=== PATIENT | female | born 1970 | race Caucasian/White ===

== ENCOUNTER 2018-08-08 11:45 | Inpatient (IN) ==
[2018-08-08] MEDS ORDERED: Levofloxacin 500 MG/100 ML 500 MG/100 ML BAG IVPB ONE (15:06)
[2018-08-08] MEDS ORDERED: *HR* FentaNYL (PF) 100 MCG/2 ML VIAL IVP ONE (15:06)
--- NOTE | 2018-08-08 15:07 | Emergency Department Note ---
Disposition Clinical Impression: Diabetic foot ulcer Disposition: Admitted As Inpatient Condition: Good General Adult HPI - General Chief complaint: ED Extremity Problem,Nontraumatic Stated complaint: Right foot ulcer wound clinic Time Seen by Provider: 08/08/18 13:04 Source: patient Limitations: no limitations - History of Present Illness Pain Scale: 10 - Related Data Home Medications Medication Instructions Recorded Confirmed Atorvastatin [Lipitor] 40 mg PO HS 08/08/18 08/08/18 Duloxetine HCl [Cymbalta] 60 mg PO DAILY 08/08/18 08/08/18 Insulin ASPART [Novolog Flexpen] 0 unit SQ TIDAC 08/08/18 08/08/18 Losartan Potassium [Cozaar] 50 mg PO DAILY 08/08/18 08/08/18 Ondansetron HCl [Zofran] 4 mg PO Q6H PRN 08/08/18 08/08/18 RX: Temazepam [Restoril] 15 mg PO HS PRN 08/08/18 08/08/18 Allergies Allergy/AdvReac Type Severity Reaction Status Date / Time Penicillins Allergy Hives Verified 08/08/18 12:40 Past Medical History - Past Medical History Medical history: Reports: diabetes, hypertension Surgical history: Reports: , cholecystectomy Psychiatric history: Reports: depression - Social History Smoking Status: Never smoker Smokeless Tobacco Status: No Alcohol use: Reports: none Drug use: Reports: none Physical Exam - General Limitations: no limitations General appearance: alert, in no apparent distress Course Vital Signs Temperature 98.3 F 08/08/18 12:37 Pulse Rate 88 08/08/18 12:37 Respiratory Rate 16 08/08/18 12:37 Blood Pressure 144/78 08/08/18 12:37 O2 Sat by Pulse Oximetry 97 08/08/18 12:37 Temperature 98.6 F 08/08/18 17:42 Pulse Rate 95 08/08/18 17:42 Respiratory Rate 18 08/08/18 17:42 Blood Pressure 139/81 08/08/18 17:42 O2 Sat by Pulse Oximetry 97 08/08/18 17:42 Oxygen Delivery Oxygen Delivery Room Air Medical Decision Making - Lab Data Result diagrams: 08/08/18 13:04 08/08/18 13:04 Lab Results 08/08/18 08/08/18 08/08/18 Range/Units 13:04 13:04 13:04 WBC 8.7 (4.3-11.1) K/mcL RBC 3.90 (3.82-4.97) M/mcL Hgb 10.8 L (11.5-15.4) g/dL Hct 34.7 L (35.3-44.9) % MCV 89.0 (83.0-100.0) fL MCH 27.7 L (28.0-33.3) pg MCHC 31.1 L (31.6-35.5) g/dL RDW 13.9 (11.5-14.5) % Plt Count 382 (140-400) K/mcL MPV 9.4 (9.4-12.4) fL Immature Gran % 0.6 (0-4) % Seg Neutrophils % 68.8 % Lymphocytes % 22.7 % Monocytes % 6.4 % Eosinophils % 0.9 % Basophils % 0.6 % Neutrophils # 6.0 (1.6-8.9) K/mcL Lymphocytes # 2.0 (0.6-4.6) K/mcL Monocytes # 0.6 (0.0-1.3) K/mcL Eosinophils # 0.1 (0.0-0.6) K/mcL Basophils # 0.1 (0.0-0.2) K/mcL ESR 100 H (0-15) mm/hr Sodium 134 L (136-145) mEq/L Potassium 3.8 (3.5-5.1) mEq/L Chloride 95 L (98-107) mEq/L Carbon Dioxide 31 H (23-29) mEq/L BUN 8 (6-20) mg/dL Creatinine 0.77 (0.60-1.20) mg/dL Est GFR ( Amer) > 60 (> 60) Est GFR (Non-Af Amer) > 60 (> 60) BUN/Creatinine Ratio 10 (6-26) Glucose 291 H (70-105) mg/dL Calculated Osmolality 287 (280-300) Calcium 8.8 (8.6-10.3) mg/dL C-Reactive Protein 40 H (Less than 10) mg/L Attestation Statement - Attestation Attestation: I examined this patient and my medical decision-making was reviewed with the Resident Physician. I agree with the documented findings, disposition and treatment plan as described except to the extent set forth below. [id number] time provided Patient with pain and swelling to her right lower extremity. She has had a slowly healing diabetic foot ulcer since November 2017 managed by William. She was sent from the wound care clinic today for admission. The patient is tearful on exam. The plantar and lateral surface of her right foot is swollen, tender, erythematous with an open wound.
[2018-08-08] MEDS ORDERED: Ondansetron ODT 4 MG TAB.RAPDIS SL ONE (15:19)
[2018-08-08 15:29] LABS: Hematocrit 34.7 % (35.3-44.9); Hemoglobin 10.8 g/dL (11.5-15.4)
[2018-08-08 15:30] LABS: BUN/Creatinine Ratio 10 (6-26); Basophils # 0.1 K/mcL (0.0-0.2); Basophils % 0.6 %; Blood Urea Nitrogen 8 mg/dL (6-20); C-Reactive Protein 40 mg/L (Less than 10); Calcium 8.8 mg/dL (8.6-10.3); Carbon Dioxide 31 mEq/L (23-29); Chloride 95 mEq/L (98-107); Eosinophils # 0.1 K/mcL (0.0-0.6); Eosinophils % 0.9 %; Glucose 291 mg/dL (70-105); Immature Granulocytes % 0.6 % (0-4); Lymphocytes % 22.7 %; Mean Corpuscular HGB Conc 31.1 g/dL (31.6-35.5); Mean Corpuscular Hemoglobin 27.7 pg (28.0-33.3); Mean Platelet Volume 9.4 fL (9.4-12.4); Monocytes # 0.6 K/mcL (0.0-1.3); Monocytes % 6.4 %; Osmolality,Calculated 287 (280-300); Platelet Count 382 K/mcL (140-400); Potassium 3.8 mEq/L (3.5-5.1); Red Cell Distribution Width 13.9 % (11.5-14.5); Segmented Neutrophils % 68.8 %; Sodium 134 mEq/L (136-145); eGFR For Non-African Americans > 60 (> 60)
--- NOTE | 2018-08-08 15:40 | Emergency Department Note ---
Disposition Clinical Impression: Diabetic foot ulcer Qualifiers: Diabetic foot ulcer location: midfoot Diabetes mellitus type: other specified (including FRANCK) Laterality: right Non-pressure ulcer stage: unspecified non- pressure ulcer stage Qualified Code(s): E13.621 - Other specified diabetes mellitus with foot ulcer Disposition: Admitted As Inpatient Condition: Good Referrals: Juliane Sultana MD [Primary Care Provider] - Time of Disposition: 15:52 General Adult HPI - General Chief complaint: ED Extremity Problem,Nontraumatic Stated complaint: Right foot ulcer wound clinic Time Seen by Provider: 08/08/18 13:04 Source: patient Mode of arrival: private vehicle Limitations: no limitations Nursing Notes Reviewed: Yes Vital Signs Reviewed: Yes - History of Present Illness HPI Narrative: Patient is a 47-year-old female with a history of diabetes Pain Scale: 10 - Related Data Home Medications Medication Instructions Recorded Confirmed Atorvastatin [Lipitor] 40 mg PO HS 08/08/18 08/08/18 Duloxetine HCl [Cymbalta] 60 mg PO DAILY 08/08/18 08/08/18 Insulin ASPART [Novolog Flexpen] 0 unit SQ TIDAC 08/08/18 08/08/18 Losartan Potassium [Cozaar] 50 mg PO DAILY 08/08/18 08/08/18 Ondansetron HCl [Zofran] 4 mg PO Q6H PRN 08/08/18 08/08/18 Temazepam [Restoril] 15 mg PO HS PRN 08/08/18 08/08/18 Allergies Allergy/AdvReac Type Severity Reaction Status Date / Time Penicillins Allergy Hives Verified 08/08/18 12:40 Constitutional: Reports: fever, chills Eyes: Denies: eye pain ENT ED: Denies: ear pain, throat pain Cardiovascular: Reports: chest pain Respiratory: Reports: dyspnea Gastrointestinal: Reports: abdominal pain, nausea, vomiting, diarrhea. Denies: constipation Genitourinary: Denies: urgency, dysuria Musculoskeletal: Denies: back pain, neck pain Neurological: Reports: headache, weakness Psychiatric: Reports: anxiety Endocrine: Denies: fatigue, heat or cold intolerance Hematological/Lymphatic: Denies: easy bleeding, easy bruising Allergic/Immunologic: Denies: facial swelling, urticaria Past Medical History - Past Medical History Medical history: Reports: diabetes, hypertension Surgical history: Reports: , cholecystectomy Psychiatric history: Reports: depression - Social History Smoking Status: Never smoker Smokeless Tobacco Status: No Alcohol use: Reports: none Drug use: Reports: none Physical Exam - General Limitations: no limitations General appearance: alert, in no apparent distress - Head Head exam: atraumatic, normocephalic - Eye Eye exam: Present: normal appearance, PERRL, EOMI - ENT ENT exam: normal exam, normal oropharynx, mucous membranes moist - Neck Neck exam: Present: normal inspection, full ROM - Chest Chest inspection: Present: normal inspection, symmetric chest wall rise, tenderness - Respiratory Respiratory exam: Present: normal lung sounds bilaterally. Absent: respiratory distress, wheezes - Cardiovascular Cardiovascular exam: Present: regular rate, normal rhythm - Abdominal Exam Abdominal exam: Present: soft, tenderness Abdominal tenderness: Present: diffuse, mild - Expanded Lower Extremity Exam Foot/toe exam: Present: other (R foot is swollen, has 3cm ulcer on foot that is packed with iodoform gauze) - Back Exam Back exam: Present: normal inspection, full ROM - Neurological Exam Neurological exam: Present: alert, oriented X3 - Psychiatric Psychiatric exam: Present: normal affect, anxious - Skin Skin exam: Present: warm, dry Course Course Narrative: Pt was sent over by Dr. Cook for admission for IV antibiotics and evaluation. Pt's pain and nausea will be controlled and basic screening labs to include CBC, BMP, ESR, CRP will be ordered. foot XR was already completed today which did not demonstrate any osteomyelitis. Vital Signs Temperature 98.3 F 08/08/18 12:37 Pulse Rate 88 08/08/18 12:37 Respiratory Rate 16 08/08/18 12:37 Blood Pressure 144/78 08/08/18 12:37 O2 Sat by Pulse Oximetry 97 08/08/18 12:37 Temperature 99.1 F 08/08/18 16:45 Pulse Rate 88 08/08/18 14:52 Respiratory Rate 20 08/08/18 16:45 Blood Pressure 136/91 08/08/18 16:45 O2 Sat by Pulse Oximetry 97 08/08/18 14:52 Oxygen Delivery Oxygen Delivery Room Air Medical Decision Making - MDM Narrative Medical decision making narrative: Pt was recently admitted to [facility] for a diabetic foot ulcer and was on IV antibiotics, but she was unhappy that her clinicians at that hospital did not understand her underlying conditions and so requested to be discharged. She was discharged on Sunday night, but was seen today at her podiatrists office and he feels that she would benefit from a longer inpatient stay for more IV antibiotics and further evaluation of her foot. She was also complaining of some chest pain, but her EKG was normal and her chest pain resolved during the course of her ED stay. She remained stable while in the department. Dr. Sheriff, hospitalist, agreed to admit to his service. Podiatry was consulted. She was started on Vancomycin and Levofloxacin while in the department. - Medical Records Medical records reviewed: Yes I reviewed the patient's medical records. - Lab Data Lab results reviewed: Yes I reviewed the patient's lab results. Result diagrams: 08/08/18 13:04 08/08/18 13:04 Lab Results 08/08/18 08/08/18 08/08/18 Range/Units 13:04 13:04 13:04 WBC 8.7 (4.3-11.1) K/mcL RBC 3.90 (3.82-4.97) M/mcL Hgb 10.8 L (11.5-15.4) g/dL Hct 34.7 L (35.3-44.9) % MCV 89.0 (83.0-100.0) fL MCH 27.7 L (28.0-33.3) pg MCHC 31.1 L (31.6-35.5) g/dL RDW 13.9 (11.5-14.5) % Plt Count 382 (140-400) K/mcL MPV 9.4 (9.4-12.4) fL Immature Gran % 0.6 (0-4) % Seg Neutrophils % 68.8 % Lymphocytes % 22.7 % Monocytes % 6.4 % Eosinophils % 0.9 % Basophils % 0.6 % Neutrophils # 6.0 (1.6-8.9) K/mcL Lymphocytes # 2.0 (0.6-4.6) K/mcL Monocytes # 0.6 (0.0-1.3) K/mcL Eosinophils # 0.1 (0.0-0.6) K/mcL Basophils # 0.1 (0.0-0.2) K/mcL ESR 100 H (0-15) mm/hr Sodium 134 L (136-145) mEq/L Potassium 3.8 (3.5-5.1) mEq/L Chloride 95 L (98-107) mEq/L Carbon Dioxide 31 H (23-29) mEq/L BUN 8 (6-20) mg/dL Creatinine 0.77 (0.60-1.20) mg/dL Est GFR ( Amer) > 60 (> 60) Est GFR (Non-Af Amer) > 60 (> 60) BUN/Creatinine Ratio 10 (6-26) Glucose 291 H (70-105) mg/dL Calculated Osmolality 287 (280-300) Calcium 8.8 (8.6-10.3) mg/dL C-Reactive Protein 40 H (Less than 10) mg/L - Radiology Data Radiology results reviewed: Yes I reviewed the patient's radiology results. Foot X-Ray 08/08/18 13:04 IMPRESSION: 1. Dislocation of the midfoot, stable. 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 2. Ulcer along the plantar aspect of the right foot near the midfoot. No evidence of osteomyelitis. D/ / 08/08/2018 13:51:30 Jules Billings MD / gilmer Interpreting Provider: Jules Billings MD - EKG Data EKG #1 EKG attestation: Yes I reviewed and interpreted this EKG. EKG results narrative: HR 85, rhythm sinus, axis normal. IN 162, QRS 97, QTc 488. No ST elevation or depression. No evidence of LVH.
[2018-08-08] MEDS ORDERED: Naloxone 0.4 MG/ML INJ IVP PRN (16:28)
[2018-08-08] MEDS ORDERED: D5% in Water 1,000 ML IVC PRN (16:31)
[2018-08-08] MEDS ORDERED: *HR* Dextrose 50 % in Water (Syg) 50 ML SYRINGE IVP PRN (16:31)
[2018-08-08] MEDS ORDERED: Dextrose Gel 15 GM/37.5 ML TUBE PO PRN ×2 (16:31)
[2018-08-08] MEDS ORDERED: Acetaminophen 325 MG TABLET PO PRN (16:32)
--- NOTE | 2018-08-08 16:42 | Internal Med History&Physical ---
Date of Encounter: 08/08/18 Time of Encounter: 16:00 Internal Medicine - H&P: HPI Chief complaint: infected R foot ulcer Admitted From: Home History of present illness: Ms. Galindo is a 47 year old female with history of DM complicated by Charcot a rthropathy, morbid obesity, who presented to the ED from podiatry office due to the concern of infected R foot ulcer. Patient has had prolonged course of infected R foot ulcer since 11/2018. Most recently, she was admitted at [facility] 3 weeks ago and was discharged home yesterday with home IV abx. She was then seen by her usual small boat engineer today, Dr. Garner, and was recommended to come to the hospital for admission. States that she has pain and swelling of the right foot associated with yellowish discharge. Denies any fever/chills, nausea/vomiting, chest pain, cough, sputum production, abdominal pain, change in bowel habits, or dysuria. In the ED, she was afebrile and hemodynamically stable. Labwork showed elevated ESR/CRP of 100/40 respectively. No leukocytosis. Creatinine her baseline. X-ray of the right foot demonstrated findings compatible with Charcot arthropathy as well as ulcer along the plantar aspect of the right foot. Patient was started on Vanco/Levaquin and admitted for further management with podiatry consult. Past Med Surg Social Fam HX - Past Medical History Attestation: Yes The following information was validated with the patient. Medical history: diabetes, hypertension Additional medical history: Multiple groin abscesses. Psychiatric history: depression - Past Surgical History Surgical History: , cholecystectomy Additional surgical history: Right foot drop, Charcot foot righ. - Social History Smoking Status: Never smoker Smokeless Tobacco Status: No Alcohol use: none Drug use: none - Family History Mother Adopted: No Family Member Ethnicity: Non- Living Status: Still Living Hx Family Cardiac Disorders: No Hx Family Respiratory Disorders: No Hx Family Cancer: Yes Hx Family GI Disorders: No Hx Family Endocrine Disorder: Yes Hx Family Neuromuscular Disorders: No Hx Family Neurologic Disorders: No Hx Family HEENT Disorders: No Hx Family Autoimmune Disorders: No Father Adopted: No Family Member Ethnicity: Non- Living Status: Still Living Hx Family Cardiac Disorders: Yes (A-fib.) Hx Family Respiratory Disorders: No Hx Family Cancer: Yes (Esophageal) Hx Family GI Disorders: No Hx Family Endocrine Disorder: No Hx Family Neuromuscular Disorders: No Hx Family Neurologic Disorders: No Hx Family HEENT Disorders: No Hx Family Autoimmune Disorders: No Internal Medicine - H&P: Meds Atorvastatin [Lipitor] 40 mg PO HS 08/08/18 [History] Duloxetine HCl [Cymbalta] 60 mg PO DAILY 08/08/18 [History] Insulin ASPART [Novolog Flexpen] 0 unit SQ TIDAC 08/08/18 [History] Losartan Potassium [Cozaar] 50 mg PO DAILY 08/08/18 [History] Ondansetron HCl [Zofran] 4 mg PO Q6H PRN 08/08/18 [History] Temazepam [Restoril] 15 mg PO HS PRN 08/08/18 [History] Allergy/AdvReac Type Severity Reaction Status Date / Time Penicillins Allergy Hives Verified 08/08/18 12:40 All Systems PM: A 10-system review of systems was performed and is negative for pertinent findings except as documented above in the HPI. - Constitutional Vitals: Temp Pulse Resp BP Pulse Ox 98.3 F 88 16 144/78 97 08/08/18 14:52 08/08/18 14:52 08/08/18 14:52 08/08/18 14:52 08/08/18 14:52 Exam: General: Alert and oriented, not in acute distress. Anxious appearing HEENT:EOMI, pupils equal, round and reactive. Cardiovascular:Normal S1 & S2, No JVD. Pulse regular. Lungs: clear to auscultation, no wheezes/rales Abdomen:Soft, non-tender, no rigidity. Extremities: R foot swollen and erythematous on the plantar aspect, small area of ulcer noted at the lateral R midfoot. Tender on light touch Neurological:Normal cognition and motor skills. Non-focal Skin:Normal color, no rash. Pulses:Carotid and radial pulses normal +2. Rest of the physical exam is non contributory Internal Med - H&P Results - Labs CBC & Chem 7: 08/08/18 13:04 08/08/18 13:04 Labs: Short CBC 08/08/18 Range/Units 13:04 WBC 8.7 (4.3-11.1) K/mcL Hgb 10.8 L (11.5-15.4) g/dL Hct 34.7 L (35.3-44.9) % Plt Count 382 (140-400) K/mcL Neutrophils # 6.0 (1.6-8.9) K/mcL BMP 08/08/18 13:04 Sodium 134 L Potassium 3.8 Chloride 95 L Carbon Dioxide 31 H BUN 8 Creatinine 0.77 Glucose 291 H Calcium 8.8 - Impressions ITS Impressions Foot X-Ray 08/08/18 13:04 IMPRESSION: 1. Dislocation of the midfoot, stable. 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 2. Ulcer along the plantar aspect of the right foot near the midfoot. No evidence of osteomyelitis. D/ / 08/08/2018 13:51:30 Jules Billings MD / glimer Interpreting Provider: Jules Billings MD - Assessment and Plan (1) Diabetic foot ulcer Current Visit: Yes Status: Acute Assessment and plan: Patient has had multiple bouts of infected right mid foot ulcer since 11/2018, with the latest admission to [facility] 3 weeks ago was just discharged yesterday on home IV abx but readmitted after being evaluated by her usual small boat engineer today in the office ESR/CRP elevated, XR -ve for OM pt states that she has had MRI done at [place] that was negative for OM, will obtain records started on vanc/levaquin in the ED, continue podiatry consult Qualifiers: Diabetic foot ulcer location: midfoot Diabetes mellitus type: type 2 Laterality: right Non-pressure ulcer stage: unspecified non-pressure ulcer stage Qualified Code(s): E11.621 - Type 2 diabetes mellitus with foot ulcer; L97.419 - Non-pressure chronic ulcer of right heel and midfoot with unspecified severity (2) Diabetes Current Visit: Yes Status: Chronic Assessment and plan: States that she used to be on 70/30 insulin 100U BID which was just switched to novolog only will cover with moderate dose sliding scale check A1c ADA diet Qualifiers: Diabetes mellitus type: type 2 Diabetes mellitus skilled nursing insulin use: with exterminator use Diabetes mellitus complication status: with other specified complication Qualified Code(s): E11.69 - Type 2 diabetes mellitus with other specified complication; Z79.4 - assistant terminal manager (current) use of insulin (3) HTN (hypertension) Current Visit: No Status: Chronic Assessment and plan: resume home meds Qualifiers: Hypertension type: essential hypertension Qualified Code(s): I10 - Essential (primary) hypertension (4) Morbid obesity with BMI of 50.0-59.9, adult Current Visit: Yes Status: Chronic Assessment and plan: Lifestyle modifications emphasized (5) DVT prophylaxis Current Visit: Yes Status: Acute Assessment and plan: SQ heparin - Time Spent With Patient Total time spent is greater than 50% in coordination of care (as documented) at patient's floor/unit and/or counseling patient: 25 - 35 minutes
[2018-08-08] MEDS: *HR* OxyCODONE Immed Rel 5 MG TABLET PO PRN (18:05)
[2018-08-08] MEDS: traMADol 50 MG TABLET PO PRN (20:00)
[2018-08-08] MEDS: Insulin LISPRO 300 UNITS/3 ML VIAL SQ SCH (20:18)
[2018-08-08] MEDS: Temazepam 15 MG CAPSULE PO PRN (22:06)
[2018-08-08] MEDS: *HR* Heparin 5,000 UNIT/ML VIAL SQ SCH (22:06)
[2018-08-08] MEDS ORDERED: *HR* HYDROmorphone (PF) 1 MG/ML SYRINGE IVP ONE (23:06)
[2018-08-08] MEDS: Ondansetron 4 MG/2 ML VIAL IVP PRN (23:17)
[2018-08-09] MEDS: *HR* OxyCODONE Immed Rel 5 MG TABLET PO PRN ×3 (04:01→21:27)
[2018-08-09 04:26] LABS: Mean Corpuscular HGB Conc 31.4 g/dL (31.6-35.5); Mean Corpuscular Hemoglobin 27.7 pg (28.0-33.3); Mean Corpuscular Volume 88.4 fL (83.0-100.0); Mean Platelet Volume 9.3 fL (9.4-12.4); Platelet Count 312 K/mcL (140-400); Red Blood Count 3.28 M/mcL (3.82-4.97); Red Cell Distribution Width 14.1 % (11.5-14.5)
[2018-08-09 04:32] LABS: Hemoglobin 9.1 g/dL (11.5-15.4)
[2018-08-09 04:36] LABS: INR 1.3; Prothrombin Time 14.4 Seconds (9.4-12.1)
[2018-08-09 04:48] LABS: BUN/Creatinine Ratio 9 (6-26); Blood Urea Nitrogen 7 mg/dL (6-20); Carbon Dioxide 31 mEq/L (23-29); Chloride 97 mEq/L (98-107); Glucose 244 mg/dL (70-105); Magnesium 1.6 mg/dL (1.6-2.6); Osmolality,Calculated 286 (280-300); Potassium 3.6 mEq/L (3.5-5.1); Sodium 135 mEq/L (136-145); eGFR For Non-African Americans > 60 (> 60)
[2018-08-09] MEDS: *HR* Heparin 5,000 UNIT/ML VIAL SQ SCH ×3 (05:30→20:50)
[2018-08-09] MEDS: Levofloxacin 750 MG/150 ML 750 MG/150 ML BAG IVPB SCH (07:57)
[2018-08-09] MEDS: Insulin LISPRO 300 UNITS/3 ML VIAL SQ SCH ×4 (08:02→20:49)
[2018-08-09] MEDS: Ondansetron 4 MG/2 ML VIAL IVP PRN ×2 (08:10→17:57)
[2018-08-09 09:58] LABS: Estimated Average Glucose 289 mg/dl; Hemoglobin A1C 11.7 %
--- NOTE | 2018-08-09 12:17 | Internal Med Progress Note ---
Hospitalist Progress Note - Encounter Date of Encounter: 08/09/18 Time of Encounter: 10:30 - Subjective Interval History: No acute events overnight. Denies any fever/chills, worsening right foot pain, chest pain, shortness of breath, or cough. - Exam Vitals: Temp Pulse Resp BP Pulse Ox 98.7 F 75 15 125/74 97 08/09/18 11:19 08/09/18 11:19 08/09/18 11:19 08/09/18 11:19 08/09/18 11:19 Exam: General: Alert and oriented, not in acute distress. Anxious appearing Cardiovascular:Normal S1 & S2, No JVD. Pulse regular. Lungs: clear to auscultation, no wheezes/rales Abdomen:Soft, non-tender, no rigidity. Extremities: R foot dressing c/d/i Neurological:Normal cognition and motor skills. Non-focal - Assessment and Plan (1) Diabetic foot ulcer Current Visit: Yes Status: Acute Assessment and Plan: Patient has had multiple bouts of infected right mid foot ulcer since 11/2018, with the latest admission to [facility] 3 weeks ago was just discharged on 08/07 with home IV abx but readmitted after being evaluated by her electromedical service engineer on 08/08 in the office ESR/CRP elevated, XR -ve for OM pt states that she has had MRI done at [place] that was negative for OM, will obtain records Continue D2 vanc/levaquin while waiting for OSH records discussed with podiatry, will hold off on imaging for now until evaluated later. No immediate plan on intervention. (2) Diabetes Current Visit: Yes Status: Chronic Assessment and Plan: States that she used to be on 70/30 insulin 100U BID which was just switched to novolog only Poorly controlled, A1c 11.7 cover with moderate dose sliding scale and add basal insulin ADA diet (3) HTN (hypertension) Current Visit: No Status: Chronic Assessment and Plan: resume home meds (4) Morbid obesity with BMI of 50.0-59.9, adult Current Visit: Yes Status: Chronic Assessment and Plan: Lifestyle modifications emphasized (5) DVT prophylaxis Current Visit: Yes Status: Acute Assessment and Plan: SQ heparin - Time Spent with Patient Total time spent is greater than 50% in coordination of care (as documented) at patient's floor/unit and/or counseling patient: 25 - 35 minutes Plan of Care Discussed with: patient (discussed with podiatry as well) Internal Medicine: Result - Labs CBC & Chem 7: 08/09/18 04:10 08/09/18 04:10 Labs: Short CBC 08/08/18 08/09/18 Range/Units 13:04 04:10 WBC 8.7 7.0 (4.3-11.1) K/mcL Hgb 10.8 L 9.1 L D (11.5-15.4) g/dL Hct 34.7 L 29.0 L (35.3-44.9) % Plt Count 382 312 (140-400) K/mcL Neutrophils # 6.0 (1.6-8.9) K/mcL BMP 08/08/18 08/09/18 13:04 04:10 Sodium 134 L 135 L Potassium 3.8 3.6 Chloride 95 L 97 L Carbon Dioxide 31 H 31 H BUN 8 7 Creatinine 0.77 0.80 Glucose 291 H 244 H Calcium 8.8 8.0 L - ABG Interpretation ABG results: PT/INR, D-dimer PT 14.4 Seconds (9.4-12.1) H 08/09/18 04:10 - Impressions Impressions Foot X-Ray 08/08/18 13:04 IMPRESSION: 1. Dislocation of the midfoot, stable. 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 2. Ulcer along the plantar aspect of the right foot near the midfoot. No evidence of osteomyelitis. D/ / 08/08/2018 13:51:30 Jules Billings MD / gilmer Interpreting Provider: Jules Billings MD Consult Discharge Plan - Plan Referrals: Juliane Sultana MD [Primary Care Provider] - (1) Diabetic foot ulcer Qualifiers: Diabetic foot ulcer location: midfoot Diabetes mellitus type: type 2 Laterality: right Non-pressure ulcer stage: unspecified non-pressure ulcer stage Qualified Code(s): E11.621 - Type 2 diabetes mellitus with foot ulcer; L97.419 - Non-pressure chronic ulcer of right heel and midfoot with unspecified severity (2) Diabetes Qualifiers: Diabetes mellitus type: type 2 Diabetes mellitus exterminator termite insulin use: with retirement use Diabetes mellitus complication status: with other specified complication Qualified Code(s): E11.69 - Type 2 diabetes mellitus with other specified complication; Z79.4 - nursing home (current) use of insulin (3) HTN (hypertension) Qualifiers: Hypertension type: essential hypertension Qualified Code(s): I10 - Essential (primary) hypertension
[2018-08-09] MEDS: *HR* Promethazine 25 MG/ML VIAL IVP PRN (12:39)
[2018-08-09] MEDS ORDERED: Gadolinium Contrast Agent (WT Based) IV PRN (12:47)
--- NOTE | 2018-08-09 13:10 | Podiatry Consult Note ---
Date of Encounter: 08/09/18 Time of Encounter: 12:30 Assessment and Plan (1) Diabetic foot ulcer Current visit: Yes Status: Acute Assessment: Charcot foot with ulceration Ulceration noted to plantar aspect of right foot measuring 1 x 1 x 3.5 cm with tunneling noted 2.2 cm at 4 o'clock Purulent drainage noted, no foul odor noted Erythema noted, no streaking noted, does not extend past demarcation line, receding from line 3/4 edema noted. Xray showed no signs of OM WBC 7.0, ESR 100, CRP 40, HGB A1C 11.7 Plan: Cleansed with 0.9 NS Packed with 1/4 inch gauze Covered with 4x4 dry gauze and kerlex MR ordered of right foot to assess for abscess/OM NWB RLE Wound cultures and anaerobic cultures ordered. Nursing to collect. Local wound care orders placed. Nursing to change daily. Recommend psychiatric evaluation d/t stress and very tearful Recommend tight glycemic control to promote wound healing Recommend to consider increasing time interval for pain medication and nausea medication to help with symptoms Thank you for consultation- will continue to follow Qualifiers: Diabetic foot ulcer location: midfoot Diabetes mellitus type: type 2 Laterality: right Non-pressure ulcer stage: unspecified non-pressure ulcer stage Qualified Code(s): E11.621 - Type 2 diabetes mellitus with foot ulcer; L97.419 - Non-pressure chronic ulcer of right heel and midfoot with unspecified severity History of Present Illness HPI: Ms. Galindo is a 47 year old female who presented to the ER last evening for complaints of worsening pain to right foot. Patient is known to podiatry clinic and follows with Dr. 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 Patient has PMH of DM, HTN, charcot arthropathy of right foot, and morbid obesity. Denies tobacco abuse, etoh abuse, or illicit drug use. Patient reports she was previously admitted to [facility] 3 weeks ago for cellulitis. Patient reports that during that time she was given IV antibiotics and was told to ambulate despite charcot foot. Patient reports she left [facility] days ago and went home. States at home she began to have pain that felt in her bone, rating 10/10. States this pain was new. Patient reports she went to wound care yesterday at which time wound was debrided and she was informed to go to ER for evaluation to be admitted. Patient is very tearful during examination stating she has children that she is having stay with her mother while she is in the hospital. Unfortunately, patient's is also admitted to the hospital in [place], at [facility] for chest pain. Patient states she is trying to stay in good spirits but is very stressed out and conc erned that she may lose her foot/leg. Again, Ms. Galindo is a 47 year old female with ulceration of right foot d/t charcot arthropathy. Patient has had ongoing wound care since November of 2017. Patient has demarcation line noted from 08/08 that erythema has since decreased. Xray completed upon admission did not show signs of OM. WBC 7.0, ESR 100, CRP 40, HGB A1C 11.7. Patient reports pain currently 7-810. Reports nausea occasionally. Denies any fevers, chills, or diarrhea. Denies any calf pain, yareli st pain, or shortness of breath. Past Med Surg Social Fam HX - Past Medical History Medical history: diabetes, hypertension Additional medical history: Multiple groin abscesses. Psychiatric history: depression - Past Surgical History Surgical History: , cholecystectomy Additional surgical history: Right foot drop, Charcot foot righ. - Social History Smoking Status: Never smoker Smokeless Tobacco Status: No Alcohol use: none Drug use: none - Family History Father Adopted: No Family Member Ethnicity: Non- Living Status: Still Living Hx Family Cardiac Disorders: Yes (HTN) Hx Family Respiratory Disorders: No Hx Family Cancer: Yes (Esophageal) Hx Family GI Disorders: No Hx Family Endocrine Disorder: Yes (DM) Hx Family Neuromuscular Disorders: No Hx Family Neurologic Disorders: No Hx Family HEENT Disorders: No Hx Family Autoimmune Disorders: No Mother Adopted: No Family Member Ethnicity: Non- Living Status: Still Living Hx Family Cardiac Disorders: No Hx Family Respiratory Disorders: No Hx Family Cancer: Yes Hx Family GI Disorders: No Hx Family Endocrine Disorder: Yes Hx Family Neuromuscular Disorders: No Hx Family Neurologic Disorders: No Hx Family HEENT Disorders: No Hx Family Autoimmune Disorders: No Medications and Allergies Atorvastatin [Lipitor] 40 mg PO HS 08/08/18 [History] Duloxetine HCl [Cymbalta] 60 mg PO DAILY 08/08/18 [History] Insulin ASPART [Novolog Flexpen] 0 unit SQ TIDAC 08/08/18 [History] Losartan Potassium [Cozaar] 50 mg PO DAILY 08/08/18 [History] Ondansetron HCl [Zofran] 4 mg PO Q6H PRN 08/08/18 [History] RX: Temazepam [Restoril] 15 mg PO HS PRN 08/08/18 [History] Allergy/AdvReac Type Severity Reaction Status Date / Time Penicillins Allergy Hives Verified 08/08/18 12:40 All Systems Reviewed: The remainder of the systems were reviewed and are negative - Constitutional Constitutional: weakness, no fever(s) - Cardiovascular Cardiovascular: leg edema, pedal edema, other (ulcer right foot), no chest pain - Respiratory Respiratory: no cough, no dyspnea - Musculoskeletal Musculoskeletal: arthralgias, muscle weakness, numbness, tingling Physical Exam - Constitutional Vitals: Temp Pulse Resp BP Pulse Ox 98.7 F 75 15 125/74 97 08/09/18 11:19 08/09/18 11:19 08/09/18 11:19 08/09/18 11:19 08/09/18 11:19 Exam: Constitiutional: Alert and oriented x 3. Well nourished. No acute distress noted Vascular: 2/4 DP/PT RLE, CFT <3 sec to all digits RLE, warm to warm from tibia to toes RLE, no calf pain with squeeze RLE Neurologic: Diminished sensation to touch, normal plantar response, abnormal position sense dorsiflexion/plantar flexion Dermatologic: Ulceration noted to plantar aspect of right foot measuring 1 x 1 x 3.5 cm with tunneling noted 2.2 cm at 4 o'clock, erythema noted to plantar aspect of foot, no streaking noted. Purulent drainage noted. No foul odor noted. Musculoskeletal: 3/5 muscle strength and normal tone bilaterally Results - Labs Result Diagrams: 08/09/18 04:10 08/09/18 04:10 Labs: Abnormal lab results RBC 3.28 M/mcL (3.82-4.97) L 08/09/18 04:10 Hgb 9.1 g/dL (11.5-15.4) L D 08/09/18 04:10 Hct 29.0 % (35.3-44.9) L 08/09/18 04:10 MCH 27.7 pg (28.0-33.3) L 08/09/18 04:10 MCHC 31.4 g/dL (31.6-35.5) L 08/09/18 04:10 MPV 9.3 fL (9.4-12.4) L 08/09/18 04:10 ESR 100 mm/hr (0-15) H 08/08/18 13:04 PT 14.4 Seconds (9.4-12.1) H 08/09/18 04:10 Sodium 135 mEq/L (136-145) L 08/09/18 04:10 Chloride 97 mEq/L (98-107) L 08/09/18 04:10 Carbon Dioxide 31 mEq/L (23-29) H 08/09/18 04:10 Glucose 244 mg/dL (70-105) H 08/09/18 04:10 POC Glucose 178 mg/dL (70-99) H 08/09/18 11:24 Hemoglobin A1c 11.7 % (-5.6) H 08/09/18 04:10 Calcium 8.0 mg/dL (8.6-10.3) L 08/09/18 04:10 C-Reactive Protein 40 mg/L (Less than 10) H 08/08/18 13:04 H & H 08/08/18 08/09/18 Range/Units 13:04 04:10 Hgb 10.8 L 9.1 L D (11.5-15.4) g/dL Hct 34.7 L 29.0 L (35.3-44.9) % All other labs normal. - Diagnostic results Ankle/Foot CT: report reviewed Consult Discharge Plan - Plan Referrals: Juliane Sultana MD [Primary Care Provider] -
[2018-08-09] MEDS: traMADol 50 MG TABLET PO PRN (16:37)
[2018-08-09] MEDS ORDERED: *HR* HYDROmorphone (PF) 1 MG/ML SYRINGE IVP ONE (17:42)
[2018-08-09] MEDS: Temazepam 15 MG CAPSULE PO PRN (20:48)
[2018-08-09] MEDS ORDERED: Insulin DETEMIR 100 UNIT/ML X5UNITS SQ SCH (21:00)
--- NOTE | 2018-08-10 03:23 | Electrocardiograph Report ---
[place] [id number] Test Date: 2018-08-08 Pat Name: Hafsa Galindo Department: [id number] Room: [facility] Gender: F Senior Internal Auditor: : 1970 Requested By: Winsome Reynaga Order Number: [id number] Reading MD: Christiano Shepard Measurements Intervals [place] Rate: 85 P: 17 [place]: 162 QRS: 39 QRSD: 97 T: 32 QT: 410 QTc: 488 Interpretive Statements Sinus rhythm Borderline prolonged QT interval Electronically Signed On 08-10-2018 3:21:41 EDT by Christiano Shepard
[2018-08-10] MEDS: *HR* OxyCODONE Immed Rel 5 MG TABLET PO PRN ×3 (04:17→21:48)
[2018-08-10] MEDS: *HR* Heparin 5,000 UNIT/ML VIAL SQ SCH ×3 (05:00→21:38)
[2018-08-10] MEDS: Insulin LISPRO 300 UNITS/3 ML VIAL SQ SCH ×4 (08:49→21:37)
--- NOTE | 2018-08-10 11:14 | Internal Med Progress Note ---
Hospitalist Progress Note - Encounter Date of Encounter: 08/10/18 Time of Encounter: 09:45 - Subjective Interval History: Did have severe pain after dressing change yesterday afternoon but reports improvement in her right foot pain today. No fever/chills or nausea/vomiting. - Exam Vitals: Temp Pulse Resp BP Pulse Ox 98.2 F 86 17 130/78 100 08/10/18 11:08 08/10/18 11:08 08/10/18 11:08 08/10/18 11:08 08/10/18 11:08 Exam: General: Alert and oriented, not in acute distress. Cardiovascular:Normal S1 & S2, No JVD. Pulse regular. Lungs: clear to auscultation, no wheezes/rales Abdomen:Soft, non-tender, no rigidity. Extremities: R foot dressing c/d/i Neurological:Normal cognition and motor skills. Non-focal - Assessment and Plan (1) Diabetic foot ulcer Current Visit: Yes Status: Acute Assessment and Plan: Patient has had multiple bouts of infected right mid foot ulcer since 11/2018, with the latest admission to [facility] 3 weeks ago was just discharged on 08/07 with home IV abx but readmitted after being evaluated by her aquaculture and fisheries professor on 08/08 in the office ESR/CRP elevated, XR -ve for OM pt states that she has had MRI done at [place] that was negative for OM, repeat one ordered by podiatry wound culture also sent, follow up Continue D3 vanc/levaquin NWB RLE Dressing change per Podiatry, appreciate input (2) Diabetes Current Visit: Yes Status: Chronic Assessment and Plan: States that she used to be on 70/30 insulin 100U BID which was just switched to novolog only Poorly controlled, A1c 11.7 continue moderate dose sliding scale, increase basal insulin to 25U HS ADA diet (3) Displacement of peripherally inserted central catheter (PICC) Current Visit: Yes Status: Acute Assessment and Plan: Patient had PICC inserted through L UE but wasn't drawing or flushing well CXR showed tip pointing toward the right neck. Difficulty in obtaining al ternative access due to her body habitus discussed with IR practice consultant, will try to pull the catheter out by ~ 5cm and repeat CXR. IT will eventually need to be repositioned or replaced once PICC team is available on Sunday (4) HTN (hypertension) Current Visit: No Status: Chronic Assessment and Plan: resume home meds (5) Morbid obesity with BMI of 50.0-59.9, adult Current Visit: Yes Status: Chronic Assessment and Plan: Lifestyle modifications emphasized (6) DVT prophylaxis Current Visit: Yes Status: Acute Assessment and Plan: SQ heparin - Time Spent with Patient Total time spent is greater than 50% in coordination of care (as documented) at patient's floor/unit and/or counseling patient: Greater than 35 minutes Plan of Care Discussed with: patient (discussed with RN and interventional radiology) Internal Medicine: Result - Labs CBC & Chem 7: 08/09/18 04:10 08/09/18 04:10 - ABG Interpretation ABG results: PT/INR, D-dimer PT 14.4 Seconds (9.4-12.1) H 08/09/18 04:10 - Impressions Impressions Chest X-Ray 08/09/18 18:16 IMPRESSION: No acute findings D/ / Dory Yo MD / Dory Yo MD Interpreting Provider: Dory Yo MD Consult Discharge Plan - Plan Referrals: Juliane Sultana MD [Primary Care Provider] - (1) Diabetic foot ulcer Qualifiers: Diabetic foot ulcer location: midfoot Diabetes mellitus type: type 2 Laterality: right Non-pressure ulcer stage: unspecified non-pressure ulcer stage Qualified Code(s): E11.621 - Type 2 diabetes mellitus with foot ulcer; L97.419 - Non-pressure chronic ulcer of right heel and midfoot with unspecified severity (2) Diabetes Qualifiers: Diabetes mellitus type: type 2 Diabetes mellitus medical terminologist insulin use: with medical terminologist use Diabetes mellitus complication status: with other specified complication Qualified Code(s): E11.69 - Type 2 diabetes mellitus with other specified complication; Z79.4 - termite control servicer (current) use of insulin (4) HTN (hypertension) Qualifiers: Hypertension type: essential hypertension Qualified Code(s): I10 - Essential (primary) hypertension
[2018-08-10] MEDS: Levofloxacin 750 MG/150 ML 750 MG/150 ML BAG IVPB SCH ×2 (13:27→14:00)
[2018-08-10] MEDS: Ondansetron 4 MG/2 ML VIAL IVP PRN (17:11)
[2018-08-10] MEDS: Insulin DETEMIR 100 UNIT/ML X5UNITS SQ SCH ×2 (21:37→21:38)
[2018-08-10] MEDS: Temazepam 15 MG CAPSULE PO PRN (23:42)
[2018-08-11] MEDS: *HR* Heparin 5,000 UNIT/ML VIAL SQ SCH ×3 (06:07→21:31)
[2018-08-11] MEDS: Ondansetron 4 MG/2 ML VIAL IVP PRN (06:22)
[2018-08-11] MEDS: *HR* OxyCODONE Immed Rel 5 MG TABLET PO PRN ×2 (06:22→15:51)
[2018-08-11] MEDS: Insulin LISPRO 300 UNITS/3 ML VIAL SQ SCH ×4 (10:13→21:31)
[2018-08-11] MEDS: *HR* LORazepam 2 MG/ML VIAL IVP PRN (10:19)
[2018-08-11] MEDS: Levofloxacin 750 MG/150 ML 750 MG/150 ML BAG IVPB SCH (10:19)
[2018-08-11 10:41] LABS: Basophils % 0.6 %; Eosinophils # 0.2 K/mcL (0.0-0.6); Hematocrit 28.7 % (35.3-44.9); Hemoglobin 8.7 g/dL (11.5-15.4); Immature Granulocytes % 0.4 % (0-4); Lymphocytes # 1.7 K/mcL (0.6-4.6); Lymphocytes % 35.8 %; Mean Corpuscular HGB Conc 30.3 g/dL (31.6-35.5); Mean Corpuscular Hemoglobin 27.6 pg (28.0-33.3); Mean Corpuscular Volume 91.1 fL (83.0-100.0); Mean Platelet Volume 9.6 fL (9.4-12.4); Monocytes # 0.4 K/mcL (0.0-1.3); Monocytes % 9.2 %; Neutrophils # 2.4 K/mcL (1.6-8.9); Platelet Count 259 K/mcL (140-400); Red Blood Count 3.15 M/mcL (3.82-4.97); Red Cell Distribution Width 14.2 % (11.5-14.5)
[2018-08-11 11:00] LABS: BUN/Creatinine Ratio 17 (6-26); Blood Urea Nitrogen 17 mg/dL (6-20); Calcium 8.1 mg/dL (8.6-10.3); Carbon Dioxide 29 mEq/L (23-29); Chloride 101 mEq/L (98-107); Glucose 320 mg/dL (70-105); Osmolality,Calculated 294 (280-300); Potassium 3.8 mEq/L (3.5-5.1); Sodium 135 mEq/L (136-145); eGFR For Non-African Americans 58 (> 60)
--- NOTE | 2018-08-11 11:55 | Internal Med Progress Note ---
Hospitalist Progress Note - Encounter Date of Encounter: 08/11/18 Time of Encounter: 10:00 - Subjective Interval History: No acute events overnight. No episodes of fever noted. Initially appeared very comfortable when I entered the room but when asked about pain, she complained of excruciating R foot pain. Patient was informed of the MRI finding and became emotionally disturbed and anxious. Continues to ask for pills to "put her to sleep continuously" although denies any SI. - Exam Vitals: Temp Pulse Resp BP Pulse Ox 98.7 F 86 13 120/76 94 08/11/18 11:44 08/11/18 11:44 08/11/18 11:44 08/11/18 11:44 08/11/18 11:44 Exam: General: Alert and oriented, extremely anxious Cardiovascular:Normal S1 & S2, No JVD. Pulse regular. Lungs: clear to auscultation, no wheezes/rales Abdomen:Soft, non-tender, no rigidity. Extremities: R foot dressing c/d/i Neurological:Normal cognition and motor skills. Non-focal - Assessment and Plan (1) Diabetic foot ulcer Current Visit: Yes Status: Acute Assessment and Plan: Patient has had multiple bouts of infected right mid foot ulcer since 11/2018, with the latest admission to [facility] 3 weeks ago was just discharged on 08/07 with home IV abx but readmitted after being evaluated by her cementing machine operator on 08/08 in the office ESR/CRP elevated, XR -ve for OM MRI R foot 08/10 showed findings compatible with cellulitis. No abscess identified. Also raised a possibility of OM as well as septic joint. Tenosynovi tis of the posterior tibialis and flexor hallucis longus. discussed the findings with Dr. Roman, will keep her NPO for now and await for podiatry eval follow up on wound culture Continue D4 vanc/levbenedicto, would consult ID tomorrow to determine the duration and choice of abx NWB RLE for now Dressing change per Podiatry, appreciate input (2) Diabetes Current Visit: Yes Status: Chronic Assessment and Plan: States that she used to be on 70/30 insulin 100U BID which was just switched to novolog only Poorly controlled, A1c 11.7 will increase to high dose sliding scale and further increase basal insulin to 40U HS ADA diet (3) Displacement of peripherally inserted central catheter (PICC) Current Visit: Yes Status: Acute Assessment and Plan: Patient had PICC inserted through L UE at the OSH but wasn't drawing or flushing well CXR showed tip pointing toward the right neck. Difficulty in obtaining altern ative access due to her body habitus discussed with IR special education assistant yesterday, catheter was pulled out by ~ 5cm and repeat CXR shows that it terminates over SVC will eventually need to be repositioned or replaced once PICC team is available on Sunday (4) HTN (hypertension) Current Visit: No Status: Chronic Assessment and Plan: resume home meds (5) Morbid obesity with BMI of 50.0-59.9, adult Current Visit: Yes Status: Chronic Assessment and Plan: Lifestyle modifications emphasized (6) Anxiety Current Visit: Yes Status: Acute Assessment and Plan: Patient is extremely anxious about the MRI findings and is asking for psych eval which I feel that it is reasonable continue Cymbalta add PRN ativan psych consult called (7) DVT prophylaxis Current Visit: Yes Status: Acute Assessment and Plan: SQ heparin - Time Spent with Patient Total time spent is greater than 50% in coordination of care (as documented) at patient's floor/unit and/or counseling patient: Greater than 35 minutes Plan of Care Discussed with: patient (discussed with Podiatry and psychiatry) Internal Medicine: Result - Labs CBC & Chem 7: 08/11/18 10:30 08/11/18 10:30 Labs: Short CBC 08/11/18 Range/Units 10:30 WBC 4.8 (4.3-11.1) K/mcL Hgb 8.7 L (11.5-15.4) g/dL Hct 28.7 L (35.3-44.9) % Plt Count 259 (140-400) K/mcL Neutrophils # 2.4 (1.6-8.9) K/mcL BMP 08/11/18 10:30 Sodium 135 L Potassium 3.8 Chloride 101 Carbon Dioxide 29 BUN 17 Creatinine 1.01 Glucose 320 H Calcium 8.1 L - ABG Interpretation ABG results: PT/INR, D-dimer PT 14.4 Seconds (9.4-12.1) H 08/09/18 04:10 - Impressions Impressions Chest X-Ray 08/10/18 11:43 IMPRESSION: PICC line catheter placement. D/ / Fredo Montague MD / Fredo Montague MD Interpreting Provider: Fredo Montague MD Foot MRI 08/10/18 12:47 IMPRESSION: 1. Pronounced subcutaneous edema with associated postcontrast enhancement most consistent with cellulitis. Additionally there is a soft tissue defect along the plantar aspect of the hindfoot compatible with given history of ulceration. No well circumscribed drainable fluid collection identified at this time. 2. Marrow signal changes involving predominantly the calcaneus and talus and to a lesser extent the medial and lateral malleoli, cuboid, and remainder of the tarsal bones as described above. While findings may reflect reactive noninfectious osteitis given chronic hindfoot dislocation and potential for mechanical marrow signal change, osteomyelitis is of concern given the soft tissue findings and plantar ulceration. This is most concerning within the talus and calcaneus, however, marrow signal along the anterior calcaneus adjacent to the ulceration does appear to be grossly preserved. 3. Large mildly complex effusion about the hindfoot with findings highly suspicious for gas along the posterior aspect of the joint. While sterility of fluid is indeterminate on imaging, septic joint should be excluded. 4. Tenosynovitis of the posterior tibialis and flexor hallucis longus tendons as well as the peroneal tendons. 5. Chronic tear of the plantar fascia. 6. Tendinosis of the distal Achilles tendon. 7. Osteonecrosis of the distal tibia. D/ / Favian Dempsey MD / Favian Dempsey MD Interpreting Provider: Favian Dempsey MD Consult Discharge Plan - Plan Referrals: Juliane Sultana MD [Primary Care Provider] - (1) Diabetic foot ulcer Qualifiers: Diabetic foot ulcer location: midfoot Diabetes mellitus type: type 2 Laterality: right Non-pressure ulcer stage: unspecified non-pressure ulcer stage Qualified Code(s): E11.621 - Type 2 diabetes mellitus with foot ulcer; L97.419 - Non-pressure chronic ulcer of right heel and midfoot with unspecified severity (2) Diabetes Qualifiers: Diabetes mellitus type: type 2 Diabetes mellitus usp insulin use: with usp use Diabetes mellitus complication status: with other specified complication Qualified Code(s): E11.69 - Type 2 diabetes mellitus with other specified complication; Z79.4 - exterminator (current) use of insulin (4) HTN (hypertension) Qualifiers: Hypertension type: essential hypertension Qualified Code(s): I10 - Essential (primary) hypertension
[2018-08-11] MEDS: *HR* Promethazine 25 MG/ML VIAL IVP PRN (15:33)
[2018-08-11] MEDS ORDERED: Insulin DETEMIR 100 UNIT/ML X5UNITS SQ SCH (21:00)
[2018-08-11] MEDS: Temazepam 15 MG CAPSULE PO PRN (21:30)
[2018-08-12] MEDS: *HR* Heparin 5,000 UNIT/ML VIAL SQ SCH ×3 (05:26→21:10)
[2018-08-12] MEDS ORDERED: *HR* Alteplase (Cathflo) 2 MG VIAL IVP ONE (08:22)
[2018-08-12] MEDS: *HR* Promethazine 25 MG/ML VIAL IVP PRN ×2 (08:29→17:21)
[2018-08-12] MEDS: Levofloxacin 750 MG/150 ML 750 MG/150 ML BAG IVPB SCH (08:30)
[2018-08-12] MEDS: Insulin LISPRO 300 UNITS/3 ML VIAL SQ SCH ×7 (08:59→21:10)
[2018-08-12 09:15] LABS: Hematocrit 31.8 % (35.3-44.9); Hemoglobin 9.8 g/dL (11.5-15.4); Mean Corpuscular HGB Conc 30.8 g/dL (31.6-35.5); Mean Corpuscular Hemoglobin 27.8 pg (28.0-33.3); Mean Corpuscular Volume 90.1 fL (83.0-100.0); Mean Platelet Volume 9.5 fL (9.4-12.4); Platelet Count 312 K/mcL (140-400); Red Blood Count 3.53 M/mcL (3.82-4.97); Red Cell Distribution Width 14.4 % (11.5-14.5)
--- NOTE | 2018-08-12 09:27 | Consult Note ---
Date of Encounter: 08/12/18 Time of Encounter: 08:50 Assessment & Recommendation (1) Major depressive disorder, recurrent episode, severe with anxious distress Current visit: Yes Status: Acute Assessment & Recommendation: -Dealing efficacy with duloxetine, recommend starting Wellbutrin XL 150 mg by mouth every morning or depression and anxiety -Patient reports that she has a referral to ecological services in [place]. Recommend stressing the importance of this modality, as it is first line for her current psychosocial issues. -Although patient is having suicidal ideation, she is not seen to be a high risk for suicide at this time, as she denies intent or plan as well as wrong protective factors Coreen denies a history of attempt. At this time, we do not recommend a one-on-one sitter -Will continue to monitor for side effects and efficacy. Please contact us with any significant developments History of Present Illness Patient: new to practice Requesting Physician: Adolfo Hall MD Reason for consult: Depression and anxiety History of present illness: Ms. Galindo is a 47 year old female with a past psychiatric history of depression and anxiety who was admitted on 08/08/2018 for a foot infection and he was consulted today for increased anxiety. Notes report that patient got overly anxious when she received her MRI results showing possible continued infection of her foot. She was started on lorazepam 1 mg IV every 8 hours when necessary for her anxiety, which she had took once yesterday. She is a home medication of duloxetine 60 mg by mouth daily. Still is reports that she is "alright," but reports that she is "worried." States that she did not get "good news" yesterday with the MRI, which is made her increasingly anxious and "sad." She explains that she has been on duloxetine for a while, stating that it was recently increased 2-4 weeks ago. She reports that she does not think it works very well. She is prescribed this medication by her primary care provider, and she reports that she recently received a referral for psychological services. She admits to increased stressors of her and also having medical issues that caused him going to the hospital as well as her suffering of this illness since March 2017. She reports depression and anxiety "my whole life." She states that she has been on "a lot of medications." She cannot remember any medications helping long-term. She reports that she is having a difficult time dealing with her foot diagnosis, and states that she is feeling "a lot of guilt" towards her daughter, who she feels she is not taking care of adequately due to her medical concerns. She admits to passive suicidal ideation on a daily basis, stating that she wishes she "would never wake up" or that she would "sleep until all this is over." She denies that she wants to attempt suicide, stating "I am too chicken." She reports that she would never harm herself. She reports protective factors being her daughter. She does mention that she is having a difficult time finding "something the latch onto" during this increased stress. She denies a history of suicide attempts. She denies HI, AH, and VH. CC: Adolfo Hall MD Past Med Surg Social Fam HX - Past Medical History Source: patient Medical history: diabetes, hypertension - Past Psychiatric History Psychiatric history: Reports: anxiety, depression Family psychiatric history: Unknown Family History of Suicide: Unknown - Past Surgical History Surgical History: , cholecystectomy - Social History Smoking Status: Never smoker Smokeless Tobacco Status: No Alcohol use: none Drug use: none Occupational status: other Current living situation: With Family - Family History Mother Adopted: No Family Member Ethnicity: Non- Living Status: Still Living Hx Family Cardiac Disorders: No Hx Family Respiratory Disorders: No Hx Family Cancer: Yes Hx Family GI Disorders: No Hx Family Endocrine Disorder: Yes Hx Family Neuromuscular Disorders: No Hx Family Neurologic Disorders: No Hx Family HEENT Disorders: No Hx Family Autoimmune Disorders: No Father Adopted: No Family Member Ethnicity: Non- Living Status: Still Living Hx Family Cardiac Disorders: Yes (HTN) Hx Family Respiratory Disorders: No Hx Family Cancer: Yes (Esophageal) Hx Family GI Disorders: No Hx Family Endocrine Disorder: Yes (DM) Hx Family Neuromuscular Disorders: No Hx Family Neurologic Disorders: No Hx Family HEENT Disorders: No Hx Family Autoimmune Disorders: No Medications & Allergies Atorvastatin [Lipitor] 40 mg PO HS 08/08/18 [History] Duloxetine HCl [Cymbalta] 60 mg PO DAILY 08/08/18 [History] Insulin ASPART [Novolog Flexpen] 0 unit SQ TIDAC 08/08/18 [History] Losartan Potassium [Cozaar] 50 mg PO DAILY 08/08/18 [History] Ondansetron HCl [Zofran] 4 mg PO Q6H PRN 08/08/18 [History] Temazepam [Restoril] 15 mg PO HS PRN 08/08/18 [History] Allergy/AdvReac Type Severity Reaction Status Date / Time Penicillins Allergy Hives Verified 08/08/18 12:40 Review of Systems Musculoskeletal: Reports: other (Right Foot pain) Psychiatric: Reports: depression, anxiety, suicidal ideation, hopelessness. Den ies: abnormal sleep pattern, change in appetite, homicidal ideation, auditory hallucinations, visual hallucinations Psychiatry Exam - Constitutional Vitals: Temp Pulse Resp BP Pulse Ox 99.1 F 91 16 143/78 96 08/12/18 07:00 08/12/18 07:00 08/12/18 07:00 08/12/18 07:00 08/12/18 07:00 General appearance: age & developmentally appropriate, well-groomed, unkempt, obese Additional observations: Bandaged right foot. In hospital gown hair unkempt - Musculoskeletal Gait: other (Not assessed) Station: relaxed Strength & Tone: normal for patient (Grossly) - Psychiatric Patient Orientation: Yes Person, Yes Time, Yes Place, Yes Circumstance Level of alertness: Alert, Follows commands Behavior: calm, nervous, anxious Psychomotor activity: Normal Eye Contact: Maintains Eye Contact Mood Description: Anxious Patient description of mood: "Worried" Affect description: congruent with mood, constricted Speech Volume: Normal Speech pattern: normal rate, normal tone, fluent, spontaneous, limited (Decreased prosody) Language & Vocabulary: consistent with education Thought Process: Logical, Linear, Goal Oriented Thought Content: Yes Suicidal ideation (Passive suicidal ideation of not wanting to wake up, denies intent or plan), No Homicidal ideation, No Overt delusions Perceptual Disturbances: No Reacting to internal stimuli, No Auditory hallucinations, No Visual hallucinations Attention Span Ability: Capable of Focused Attention Memory Description: Grossly Intact Patient Reliability: Reliable Historian Fund of knowledge: Yes abstraction ability, Yes aware of current events Intelligence Estimate: Average Judgment: Fair Insight: Full Results - Drug Levels and Toxicology Drug Levels and Toxicology: None noted this a.m. - Labs Labs: Laboratory Last Values WBC 6.0 K/mcL (4.3-11.1) 08/12/18 08:51 RBC 3.53 M/mcL (3.82-4.97) L 08/12/18 08:51 Hgb 9.8 g/dL (11.5-15.4) L 08/12/18 08:51 Hct 31.8 % (35.3-44.9) L 08/12/18 08:51 MCV 90.1 fL (83.0-100.0) 08/12/18 08:51 MCH 27.8 pg (28.0-33.3) L 08/12/18 08:51 MCHC 30.8 g/dL (31.6-35.5) L 08/12/18 08:51 RDW 14.4 % (11.5-14.5) 08/12/18 08:51 Plt Count 312 K/mcL (140-400) 08/12/18 08:51 MPV 9.5 fL (9.4-12.4) 08/12/18 08:51 Immature Gran % 0.4 % (0-4) 08/11/18 10:30 Seg Neutrophils % 50.0 % 08/11/18 10:30 Lymphocytes % 35.8 % 08/11/18 10:30 Monocytes % 9.2 % 08/11/18 10:30 Eosinophils % 4.0 % 08/11/18 10:30 Basophils % 0.6 % 08/11/18 10:30 Neutrophils # 2.4 K/mcL (1.6-8.9) 08/11/18 10:30 Lymphocytes # 1.7 K/mcL (0.6-4.6) 08/11/18 10:30 Monocytes # 0.4 K/mcL (0.0-1.3) 08/11/18 10:30 Eosinophils # 0.2 K/mcL (0.0-0.6) 08/11/18 10:30 Basophils # 0.0 K/mcL (0.0-0.2) 08/11/18 10:30 ESR 100 mm/hr (0-15) H 08/08/18 13:04 PT 14.4 Seconds (9.4-12.1) H 08/09/18 04:10 INR 1.3 08/09/18 04:10 Sodium 135 mEq/L (136-145) L 08/11/18 10:30 Potassium 3.8 mEq/L (3.5-5.1) 08/11/18 10:30 Chloride 101 mEq/L (98-107) 08/11/18 10:30 Carbon Dioxide 29 mEq/L (23-29) 08/11/18 10:30 BUN 17 mg/dL (6-20) 08/11/18 10:30 Creatinine 1.01 mg/dL (0.60-1.20) 08/11/18 10:30 Est GFR ( Amer) > 60 (> 60) 08/11/18 10:30 Est GFR (Non-Af Amer) 58 (> 60) L 08/11/18 10:30 BUN/Creatinine Ratio 17 (6-26) 08/11/18 10:30 Glucose 320 mg/dL (70-105) H 08/11/18 10:30 POC Glucose 284 mg/dL (70-99) H 08/11/18 19:53 Est Mean Plasma Glucose 289 mg/dl 08/09/18 04:10 Hemoglobin A1c 11.7 % (-5.6) H 08/09/18 04:10 Calculated Osmolality 294 (280-300) 08/11/18 10:30 Calcium 8.1 mg/dL (8.6-10.3) L 08/11/18 10:30 Magnesium 1.6 mg/dL (1.6-2.6) 08/09/18 04:10 C-Reactive Protein 40 mg/L (Less than 10) H 08/08/18 13:04 Vancomycin Trough 20 mcg/mL (5-10) H 08/10/18 17:15 Random Vancomycin 30 mcg/mL 08/11/18 16:45 - Impressions None noted this a.m. Consult Discharge Plan - Plan Referrals: Juliane Sultana MD [Primary Care Provider] - - Attending Attestation I examined this patient and my medical decision-making was reviewed with the Resident Physician. I agree with the documented findings, disposition and treatment plan as described except to the extent set forth below.
[2018-08-12 09:35] LABS: BUN/Creatinine Ratio 16 (6-26); Blood Urea Nitrogen 15 mg/dL (6-20); Calcium 8.7 mg/dL (8.6-10.3); Carbon Dioxide 30 mEq/L (23-29); Chloride 102 mEq/L (98-107); Glucose 231 mg/dL (70-105); Osmolality,Calculated 292 (280-300); Potassium 4.1 mEq/L (3.5-5.1); Sodium 137 mEq/L (136-145); eGFR For Non-African Americans > 60 (> 60)
--- NOTE | 2018-08-12 10:24 | Infectious Disease Consult ---
Date of Encounter: 08/12/18 Time of Encounter: 10:18 Assessment and Plan (1) Cellulitis Status: Acute Assessment and plan: Location: Right lower extremity. Causative organism: Unclear. X-ray of the right foot was negative for osteomyelitis. MRI of the right foot showed findings consistent with cellulitis and reactive osteitis versus early osteomyelitis. ESR 100, CRP 40. Podiatry consulted and following. No sepsis criteria, but the patient had been on IV antibiotics for two weeks prior to coming here. No blood cultures were drawn. Improved. Currently on vancomycin and Levaquin. Recommendations: Wound culture pending, but no growth to day. Likely because the patient was on IV antibiotics prior to admission. I called and spoke with the micro lab at [facility] and they tell me the patient had no cultures there. I have asked nursing to request records from recent hospitalization. Wound care and activity per the Podiatry team. Await further plan from the Podiatry team. Continue Vancomycin IV. Pharmacy to dose. Goal trough ~15. Discontinue levaquin. Start Cefepime 2 grams IV Q12H. Documented allergy to PCN, but low probability of cross-sensitivity. Will monitor closely. Duration of treatment depends on the clinical picture, however, given the patient's MRI findings and elevated ESR and CRP, I am concerned that there is in fact an underlying osteomyelitis so we will likely treat for an extended course up to 6 weeks. animal services officer to assist with discharge planning. Monitor renal function for drug toxicity and dose adjust antibiotics. Qualifiers: Qualified Code(s): L03.115 - Cellulitis of right lower limb (2) Osteomyelitis Status: Suspected Assessment and plan: Location: Right foot. Causative organism: Unclear. MRI showed findings consistent with reactive osteitis osteomyelitis. ESR 100, CRP 40. Highly suspicious of osteomyelitis given the clinical and MRI findings and elevated inflammatory markers. Podiatry consulted and following. Currently on vancomycin and Levaquin. Qualifiers: Qualified Code(s): M86.171 - Other acute osteomyelitis, right ankle and foot (3) Diabetic foot ulcer Status: Acute Assessment and plan: Location: Right foot heel. Likely secondary to poor fitting shoe. Wound care for the podiatry team. Qualifiers: Qualified Code(s): E11.621 - Type 2 diabetes mellitus with foot ulcer; L97.419 - Non-pressure chronic ulcer of right heel and midfoot with unspecified severity (4) Charcot's joint of foot Status: Chronic Qualifiers: Qualified Code(s): M14.671 - Charcot's joint, right ankle and foot (5) HTN (hypertension) Status: Chronic Qualifiers: Qualified Code(s): I10 - Essential (primary) hypertension (6) Morbid obesity with BMI of 50.0-59.9, adult Status: Chronic (7) Anxiety Status: Acute (8) Major depressive disorder, recurrent episode, severe with anxious distress Status: Acute Assessment and plan: Psychiatry consulted and following. (9) Type 2 diabetes mellitus with foot ulcer Status: Acute Assessment and plan: Uncontrolled. HgbA1C 11%. Recommend strict glucose control. Management per the primary team. Qualifiers: Qualified Code(s): E11.621 - Type 2 diabetes mellitus with foot ulcer; L97.509 - Non-pressure chronic ulcer of other part of unspecified foot with unspecified severity; Z79.4 - skilled nursing (current) use of insulin Infectious Disease HPI - Data of Consult Patient: new to practice Consult date: 08/12/18 Requesting Physician: Adolfo Hall MD Primary Care Provider: Juliane Slutana MD - Consult Narrative Reason for consult: Left foot infection History of present illness: Ms. Galindo is a 47 year old female with past medical history of diabetes, hypertension, Charcot arthropathy, and depression. The patient was admitted to the hospital 08/08/18 for a right foot diabetic foot ulcer infection. We are consulted 08/12/18 for further workup and treatment recommendations for right foot infection. Briefly, the patient's a 47-year-old female with past medical history as stated above. 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 Apparently, the patient was hospitalized at [facility] for 2-1/2 weeks where she received IV antibiotics with little to no improvement in her right foot infection. She was discharged home on IV antibiotics, which sounds to be Rocephin, to complete an additional 10 days. She states she saw Dr. Garner in the wound clinic the next day and was advised to come to the ER for evaluation. Upon arrival, the patient was afebrile and hemodynamically stable. She had a normal white blood cell count. ESR is elevated at 100 with a CRP of 40. She had a right foot x-ray that showed dislocation of the midfoot consistent with her chronic Charcot, but no osteomyelitis. She was started empirically on IV antibiotics and admitted to the hospital for further evaluation. Since admission, the patient has remained afebrile and hemodynamically stable. She was evaluated by podiatry who performed an MRI of the right foot that showed pronounced subcutaneous edema with associated postcontrast enhancement most consistent with cellulitis and a soft tissue defect along the plantar aspect of the hind foot compatible with given history of ulceration. There is no well- circumscribed drainable fluid collection. There was marrow signal changes involving predominantly the calcaneus and talus into a lesser extent the medial and lateral malleoli, cuboid, and remainder of the tarsal bones as described above. All findings may recollect reactive non-infectious osteitis given chronic hindfoot dislocation and potential for mechanical marrow signal change, osteoarthritis is of concern given the soft tissue findings and plantar ulceration. This is most concerning within the talus and calcaneus, however, m arrow signal along the anterior calcaneus adjacent to the ulceration does appear to be grossly preserved. There is a large mildly complex effusion about the hindfoot with gangs highly suspicious for gas along the posterior aspect of the joint, septic joint should be excluded. There is also tenosynovitis of the posterior tibialis and flexor hallucis longus tendons as well as peroneal tendons. Currently, the patient is on IV Levaquin and vancomycin. We have been asked to evaluate and make further recommendations. During my exam today, the patient states that for 2 weeks she was at [facility] she really did not get much better. She reported chills with shivers, but no discernible fevers. She denies any headache or neck pain. Denies any chest pain, shortness of breath, or cough. Denies vomiting, diarrhea, or constipation. She does report some nausea when receiving her IV antibiotics that is controlled with anti-emetics. She states her appetite is okay. She states her blood sugars have not been well controlled. She complains of pain in the left foot. She states that clinically the foot looks much better. She denies any oral thrush or additional skin lesions. She states the ulcer on her right foot started when her boot rubbed her heel back in November. She states she has been going to the wound clinic for this ulceration. She states is the first time she has been treated for infection in this ulcer. The patient lives at home with her and daughter. She does not work outside the home. She denies any tobacco, alcohol, or illicit drug use. She does have dogs and cats and rabbits and chickens. She denies any pain or anal exposure to the affected extremity. She denies any recent travel. She denies any chronic infectious diseases. CC: Adolfo Hall MD Past Med Surg Social Fam HX - Past Medical History Attestation: Yes The following information was validated with the patient. Source: patient, old records reviewed, nursing notes reviewed Medical history: diabetes, hypertension Additional medical history: Multiple groin abscesses. Psychiatric history: anxiety, depression - Past Surgical History Surgical History: , cholecystectomy Additional surgical history: Right foot drop, Charcot foot righ. - Social History Smoking Status: Never smoker Smokeless Tobacco Status: No Alcohol use: none Drug use: none Occupational status: disabled Current living situation: Home, With Family Activity Level: Independent ambulation Recent Out of Country Travel Within the Last 8 Weeks: No Exposure or Possible Exposure to Illness During Travel: No - Family History Father Adopted: No Family Member Ethnicity: Non- Living Status: Still Living Hx Family Cardiac Disorders: Yes (HTN) Hx Family Respiratory Disorders: No Hx Family Cancer: Yes (Esophageal) Hx Family GI Disorders: No Hx Family Endocrine Disorder: Yes (DM) Hx Family Neuromuscular Disorders: No Hx Family Neurologic Disorders: No Hx Family HEENT Disorders: No Hx Family Autoimmune Disorders: No Mother Adopted: No Family Member Ethnicity: Non- Living Status: Still Living Hx Family Cardiac Disorders: No Hx Family Respiratory Disorders: No Hx Family Cancer: Yes Hx Family GI Disorders: No Hx Family Endocrine Disorder: Yes Hx Family Neuromuscular Disorders: No Hx Family Neurologic Disorders: No Hx Family HEENT Disorders: No Hx Family Autoimmune Disorders: No Infectious Disease-CN:Meds Atorvastatin [Lipitor] 40 mg PO HS 08/08/18 [History] Duloxetine HCl [Cymbalta] 60 mg PO DAILY 08/08/18 [History] Insulin ASPART [Novolog Flexpen] 0 unit SQ TIDAC 08/08/18 [History] Losartan Potassium [Cozaar] 50 mg PO DAILY 08/08/18 [History] Ondansetron HCl [Zofran] 4 mg PO Q6H PRN 08/08/18 [History] RX: Temazepam [Restoril] 15 mg PO HS PRN 08/08/18 [History] Allergy/AdvReac Type Severity Reaction Status Date / Time Penicillins Allergy Hives Verified 08/08/18 12:40 All systems: reviewed and no additional remarkable complaints except as stated Exam - Constitutional Vitals: Temp Pulse Resp BP Pulse Ox 99.1 F 91 16 143/78 96 08/12/18 07:00 08/12/18 07:00 08/12/18 07:00 08/12/18 07:00 08/12/18 07:00 General appearance: cooperative, morbidly obese, no acute distress - Head Head exam: Present: atraumatic, normal inspection, normocephalic - Eye Eye exam: Present: EOMI, normal appearance, PERRL Pupils: Present: normal accommodation - ENT ENT exam: Present: mucous membranes moist - Neck Neck exam: Present: normal inspection - Respiratory Respiratory exam: Present: CTAB. Absent: rales, respiratory distress, rhonchi - Cardiovascular Cardiovascular exam: Present: RRR, +S1, +S2 - GI/Abdominal GI/Abdominal exam: Present: distended (obese), normal bowel sounds, soft, tenderness - Extremities Exam Extremities exam: Present: pedal edema (1+ RLE), tenderness (right foot). Absent: normal inspection (DFU to the plantar aspect of the right heel with fluctuance and erythema noted. Seropurulent drainage noted on palpation. Tenderness noted. Erythema receded from previous skin markings to the right lower leg.) - Neurological Exam Neurological exam: Present: alert, oriented X3, no focal deficits - Psychiatric Psychiatric exam: Present: normal affect, normal mood - Skin Skin exam: Present: dry, intact, normal color, warm Infectious Disease CN: Results - Labs CBC & Chem 7: 08/14/18 05:30 08/14/18 05:30 Cultures: Cultures 08/09/18 18:00 Wound Culture - Final Right Foot No growth. 08/09/18 18:00 Anaerobic Culture - Preliminary Right Foot At this time, no anaerobic growth is present. The culture will be finalized after 5 days of incubation. Consult Discharge Plan - Plan Referrals: Juliane Sultana MD [Primary Care Provider] - Susanne Brambila CNP [Advanced Practice Nurse] - 08/27/18 2:05 pm - Attending Attestation I have personally performed a face to face evaluation on this patient. I have reviewed and agree with the care plan. History and Exam by me shows: cellulitis osteomyelitis right foot diabetic foot ulcer charcot's joint HTN Recommend: Wound culture pending, but no growth to day. Likely because the patient was on IV antibiotics prior to admission. I called and spoke with the micro lab at [facility] and they tell me the patient had no cultures there. I have asked nursing to request records from recent hospitalization. Wound care and activity per the Podiatry team. Await further plan from the Podiatry team. Continue Vancomycin IV. Pharmacy to dose. Goal trough ~15. Discontinue levaquin. Start Cefepime 2 grams IV Q12H. Documented allergy to PCN, but low probability of cross-sensitivity. Will monitor closely. Duration of treatment depends on the clinical picture, however, given the patient's MRI findings and elevated ESR and CRP, I am concerned that there is in fact an underlying osteomyelitis so we will likely treat for an extended course up to 6 weeks. animal services officer to assist with discharge planning. Monitor renal function for drug toxicity and dose adjust antibiotics.
[2018-08-12] MEDS: BuPROPion XL (24 HR) 150 MG TABLET PO SCH (13:39)
[2018-08-12] MEDS: *HR* OxyCODONE Immed Rel 5 MG TABLET PO PRN ×2 (13:42→19:52)
--- NOTE | 2018-08-12 15:44 | Internal Med Progress Note ---
Hospitalist Progress Note - Encounter Date of Encounter: 08/12/18 Time of Encounter: 13:30 - Subjective Interval History: [place] more cheerful today. Her pain is better controlled. No fever/chills or nausea/vomiting. - Exam Vitals: Temp Pulse Resp BP Pulse Ox 98.0 F 88 16 137/86 94 08/12/18 11:00 08/12/18 11:00 08/12/18 11:00 08/12/18 11:00 08/12/18 11:00 Exam: General: Alert and oriented, appears more comfortable today Cardiovascular:Normal S1 & S2, No JVD. Pulse regular. Lungs: clear to auscultation, no wheezes/rales Abdomen:Soft, non-tender, no rigidity. Extremities: R foot dressing c/d/i Neurological:Normal cognition and motor skills. Non-focal - Assessment and Plan (1) Diabetic foot ulcer Current Visit: Yes Status: Acute Assessment and Plan: Patient has had multiple bouts of infected right mid foot ulcer since 11/2018, with the latest admission to [facility] 3 weeks ago was just discharged on 08/07 with home IV abx but readmitted after being evaluated by her enrichment teacher on 08/08 in the office ESR/CRP elevated, XR -ve for OM MRI R foot 08/10 showed findings compatible with cellulitis. No abscess identified. Also raised a possibility of OM as well as septic joint. Tenosynovitis of the posterior tibialis and flexor hallucis longus. discussed the findings with podiatry again today, no plan for surgical intervention wound culture -ve was on vanc/levaquin which is switched to Vanc/cefepme, appreciate ID input NWJohnson RLE for now Dressing change per Podiatry, appreciate input SW consult for d/c planning, PT/OT report pending (2) Diabetes Current Visit: Yes Status: Chronic Assessment and Plan: States that she used to be on 70/30 insulin 100U BID which was just switched to novolog only Poorly controlled, A1c 11.7 further increase basal insulin to 50U HS and continue high dose sliding scale. Add prandial lispro 10U TIDmeals ADA diet (3) Displacement of peripherally inserted central catheter (PICC) Current Visit: Yes Status: Acute Assessment and Plan: Patient had PICC inserted through L UE at the OSH but wasn't drawing or flushing well CXR showed tip pointing toward the right neck. Difficulty in obtaining alternative access due to her body habitus discussed with IR can conveyor feeder yesterday, catheter was pulled out by ~ 5cm and repeat CXR shows that it terminates over SVC DIscussed with IR, does not need to be further repositioned or replaced. (4) HTN (hypertension) Current Visit: No Status: Chronic Assessment and Plan: resume home meds (5) Morbid obesity with BMI of 50.0-59.9, adult Current Visit: Yes Status: Chronic Assessment and Plan: Lifestyle modifications emphasized (6) Anxiety Current Visit: Yes Status: Acute Assessment and Plan: Patient is extremely anxious about the hospital course, taking Cymbalta currently appreciate psych input, will add WEllbutrin continue PRN ativan (7) DVT prophylaxis Current Visit: Yes Status: Acute Assessment and Plan: SQ heparin - Time Spent with Patient Total time spent is greater than 50% in coordination of care (as documented) at patient's floor/unit and/or counseling patient: Greater than 35 minutes Plan of Care Discussed with: patient (Discussed with family, podiatry, infectious disease, and IR. Also discussed during case mangement round for d/c planning) Internal Medicine: Result - Labs CBC & Chem 7: 08/12/18 08:51 08/12/18 08:51 Labs: Short CBC 08/12/18 Range/Units 08:51 WBC 6.0 (4.3-11.1) K/mcL Hgb 9.8 L (11.5-15.4) g/dL Hct 31.8 L (35.3-44.9) % Plt Count 312 (140-400) K/mcL BMP 08/12/18 08:51 Sodium 137 Potassium 4.1 Chloride 102 Carbon Dioxide 30 H BUN 15 Creatinine 0.91 Glucose 231 H Calcium 8.7 - ABG Interpretation ABG results: PT/INR, D-dimer PT 14.4 Seconds (9.4-12.1) H 08/09/18 04:10 Consult Discharge Plan - Plan Referrals: Juliane Sultana MD [Primary Care Provider] - (1) Diabetic foot ulcer Qualifiers: Diabetic foot ulcer location: midfoot Diabetes mellitus type: type 2 Laterality: right Non-pressure ulcer stage: unspecified non-pressure ulcer stage Qualified Code(s): E11.621 - Type 2 diabetes mellitus with foot ulcer; L97.419 - Non-pressure chronic ulcer of right heel and midfoot with unspecified severity (2) Diabetes Qualifiers: Diabetes mellitus type: type 2 Diabetes mellitus lobsterman insulin use: with lobsterman use Diabetes mellitus complication status: with other specified complication Qualified Code(s): E11.69 - Type 2 diabetes mellitus with other specified complication; Z79.4 - MCFP (current) use of insulin (4) HTN (hypertension) Qualifiers: Hypertension type: essential hypertension Qualified Code(s): I10 - Essential (primary) hypertension
[2018-08-12] MEDS: Cefepime HCl 2,000 MG in Water for inj. (sterile) 20 ML 20 ML IVP SCH (17:09)
--- NOTE | 2018-08-12 17:31 | Podiatry Progress Note ---
Date of Encounter: 08/12/18 Time of Encounter: 15:30 - Assessment and Plan (1) Diabetic foot ulcer Current Visit: Yes Status: Acute Assessment: Charcot foot with ulceration Ulceration noted to plantar aspect of right foot measuring 1 x 1 x 3 cm with tunneling noted 2.5 cm at 4 o'clock Large amount of serous drainage noted, no foul odor noted Erythema noted, improved since last assessment, no streaking noted, receding erythema from demarcation line 3/4 edema noted. Xray showed no signs of OM WBC 6.0, HGB A1C 11.7 MRI negative for abscess ID following for ATB management- appreciate recommendations Plan: Cleansed with 0.9 NS Packed with 1/4 inch gauze Covered with 4x4 dry gauze, abd pad, and kerlex NWB RLE Local wound care orders placed. Nursing to change daily. Recommend tight glycemic control to promote wound healing, Educated patient on proper blood glucose management and keeping A1C less than 7 Recommend diabetic education, patient is agreeable Pain control per primary team Spoke with executive secretary social welfare [place] regarding patient status. Patient at this time is eligible for 10 day stay in rehab facility. Will get oracle financial application developer involved as patient may not be a candidate for medicaid. Surgical intervention vs. conservative management to be discussed with Dr. Garner and patient tomorrow. Please hold off on discharge until after this has taken place. Thank you for consultation- will continue to follow Impression: MR/MR foot RT wo/w con IMPRESSION: 1. Pronounced subcutaneous edema with associated postcontrast enhancement most consistent with cellulitis. Additionally there is a soft tissue defect along the plantar aspect of the hindfoot compatible with given history of ulceration. No well circumscribed drainable fluid collection identified at this time. 2. Marrow signal changes involving predominantly the calcaneus and talus and to a lesser extent the medial and lateral malleoli, cuboid, and remainder of the tarsal bones as described above. While findings may reflect reactive noninfectious osteitis given chronic hindfoot dislocation and potential for mechanical marrow signal change, osteomyelitis is of concern given the soft tissue findings and plantar ulceration. This is most concerning within the talus and calcaneus, however, marrow signal along the anterior calcaneus adjacent to the ulceration does appear to be grossly preserved. 3. Large mildly complex effusion about the hindfoot with findings highly suspicious for gas along the posterior aspect of the joint. While sterility of fluid is indeterminate on imaging, septic joint should be excluded. 4. Tenosynovitis of the posterior tibialis and flexor hallucis longus tendons as well as the peroneal tendons. 5. Chronic tear of the plantar fascia. 6. Tendinosis of the distal Achilles tendon. 7. Osteonecrosis of the distal tibia. D/ / Favian Dempsey MD / Favian Dempsey MD Interpreting Provider: Favian Dempsey MD Qualifiers: Diabetic foot ulcer location: midfoot Diabetes mellitus type: type 2 Laterality: right Non-pressure ulcer stage: unspecified non-pressure ulcer stage Qualified Code(s): E11.621 - Type 2 diabetes mellitus with foot ulcer; L97.419 - Non-pressure chronic ulcer of right heel and midfoot with unspecified severity Subjective Interval history: Patient awake in bed. Alert and oriented x 3. Patient at bedside. Patient very tearful during examination. Patient states that she was unhappy with her MRI results and states that she does not remember much of yesterday. Patient reports that she is very scared if she has to have surgery, but is agreeable to attend an ECF if necessary. Patient reports pain to right foot that is unrelieved with pain medication. Denies any nausea, vomiting, or diarrhea. Denies fever, chills. Denies calf pain, chest pain, or shortness of breath. No other questions at this time. Objective - Vital Signs Vital Signs: Vital Signs Temp Pulse Resp BP Pulse Ox 08/12/18 15:00 98.8 F 86 16 152/89 08/12/18 11:00 98.0 F 88 16 137/86 94 08/12/18 07:00 99.1 F 91 16 143/78 96 08/12/18 03:44 99.0 F 89 14 122/78 91 08/11/18 22:44 98.4 F 90 15 166/101 95 08/11/18 19:49 98.0 F 92 16 150/77 98 Intake and Output 08/12/18 08/12/18 08/12/18 07:59 15:59 23:59 Intake Total 510 / 510 Output Total 500 / 500 Balance 510 / 510 -500 / -500 Intake: IV Fluids 150 / 150 Levaquin Premix 750mg/150 mL 150 / 150 750 mg In 150 ml @ 100 mls/hr IVPB DAILY [facility] Rx#:[id number] Oral 360 / 360 Output: Urine 500 / 500 Other: Meal Lunch Percent of Meal Consumed 80% # Voids 1 Blood Glucose* 216 225 102 - Lab Result Diagrams: 08/12/18 08:51 08/12/18 08:51 Labs: Abnormal lab results RBC 3.53 M/mcL (3.82-4.97) L 08/12/18 08:51 Hgb 9.8 g/dL (11.5-15.4) L 08/12/18 08:51 Hct 31.8 % (35.3-44.9) L 08/12/18 08:51 MCH 27.8 pg (28.0-33.3) L 08/12/18 08:51 MCHC 30.8 g/dL (31.6-35.5) L 08/12/18 08:51 ESR 100 mm/hr (0-15) H 08/08/18 13:04 PT 14.4 Seconds (9.4-12.1) H 08/09/18 04:10 Carbon Dioxide 30 mEq/L (23-29) H 08/12/18 08:51 Glucose 231 mg/dL (70-105) H 08/12/18 08:51 POC Glucose 284 mg/dL (70-99) H 08/11/18 19:53 Hemoglobin A1c 11.7 % (-5.6) H 08/09/18 04:10 C-Reactive Protein 40 mg/L (Less than 10) H 08/08/18 13:04 Vancomycin Trough 20 mcg/mL (5-10) H 08/10/18 17:15 Microbiology, Last 48 Hours 08/09/18 18:00 Wound Culture - Final Right Foot No growth. 08/09/18 18:00 Anaerobic Culture - Preliminary Right Foot At this time, no anaerobic growth is present. The culture will be finalized after 5 days of incubation. Consult Discharge Plan - Plan Referrals: Juliane Sultana MD [Primary Care Provider] -
[2018-08-12] MEDS: traMADol 50 MG TABLET PO PRN (19:03)
[2018-08-12] MEDS: Insulin DETEMIR 100 UNIT/ML X5UNITS SQ SCH (21:10)
[2018-08-13] MEDS: Cefepime HCl 2,000 MG in Water for inj. (sterile) 20 ML 20 ML IVP SCH ×2 (06:15→17:44)
[2018-08-13] MEDS: *HR* Heparin 5,000 UNIT/ML VIAL SQ SCH ×3 (06:15→20:29)
[2018-08-13] MEDS: *HR* Promethazine 25 MG/ML VIAL IVP PRN ×2 (06:19→17:42)
[2018-08-13 06:28] LABS: Basophils % 0.8 %; Eosinophils # 0.3 K/mcL (0.0-0.6); Eosinophils % 5.1 %; Hematocrit 28.8 % (35.3-44.9); Hemoglobin 8.7 g/dL (11.5-15.4); Immature Granulocytes % 0.4 % (0-4); Lymphocytes # 1.8 K/mcL (0.6-4.6); Lymphocytes % 35.1 %; Mean Corpuscular HGB Conc 30.2 g/dL (31.6-35.5); Mean Corpuscular Hemoglobin 27.3 pg (28.0-33.3); Mean Corpuscular Volume 90.3 fL (83.0-100.0); Mean Platelet Volume 9.7 fL (9.4-12.4); Monocytes # 0.5 K/mcL (0.0-1.3); Monocytes % 9.6 %; Neutrophils # 2.5 K/mcL (1.6-8.9); Platelet Count 264 K/mcL (140-400); Red Blood Count 3.19 M/mcL (3.82-4.97); Red Cell Distribution Width 14.3 % (11.5-14.5)
[2018-08-13 06:49] LABS: BUN/Creatinine Ratio 20 (6-26); Blood Urea Nitrogen 17 mg/dL (6-20); Calcium 8.6 mg/dL (8.6-10.3); Carbon Dioxide 32 mEq/L (23-29); Chloride 102 mEq/L (98-107); Glucose 192 mg/dL (70-105); Magnesium 1.6 mg/dL (1.6-2.6); Osmolality,Calculated 293 (280-300); Potassium 3.7 mEq/L (3.5-5.1); Sodium 138 mEq/L (136-145); eGFR For Non-African Americans > 60 (> 60)
--- NOTE | 2018-08-13 09:45 | Infectious Disease Progress No ---
Date of Encounter: 08/13/18 Time of Encounter: 09:42 - Assessment and Plan (1) Cellulitis Current Visit: Yes Status: Acute Location: Right lower extremity. Causative organism: Unclear. X-ray of the right foot was negative for osteomyelitis. MRI of the right foot showed findings consistent with cellulitis and reactive osteitis versus early osteomyelitis. ESR 100, CRP 40. Podiatry consulted and following. No sepsis criteria, but the patient had been on IV antibiotics for two weeks prior to coming here. No blood cultures were drawn. Improved. Currently on vancomycin and cefepime. Recommendations: Wound culture is negative. Likely because the patient was on IV antibiotics prior to admission. I called and spoke with the micro lab at [facility] and they tell me the patient had no cultures there. I have asked nursing to request records from recent hospitalization. Wound care and activity per the Podiatry team. Await further plan from the Podiatry team regarding possible surgical intervention. Bowel regimen per the primary team. Continue Vancomycin IV. Pharmacy to dose. Goal trough ~15. Continue Cefepime 2 grams IV Q12H. Documented allergy to PCN, but low probability of cross-sensitivity. Will monitor closely. Duration of treatment depends on the clinical picture, however, given the patient's MRI findings and elevated ESR and CRP, I am concerned that there is in fact an underlying osteomyelitis so we will likely treat for an extended course up to 6 weeks. financial services manager to assist with discharge planning. Monitor renal function for drug toxicity and dose adjust antibiotics. Will need weekly CBC, BUN/Cr, ESR, CRP, and Vanc trough. Will need weekly PICC care per protocol. Follow up with ID 08/27/18 at 1405. Qualifiers: Site of cellulitis: extremity Site of cellulitis of extremity: lower extremity Laterality: right Qualified Code(s): L03.115 - Cellulitis of right lower limb (2) Osteomyelitis Current Visit: Yes Status: Suspected Location: Right foot. Causative organism: Unclear. MRI showed findings consistent with reactive osteitis osteomyelitis. ESR 100, CRP 40. Highly suspicious of osteomyelitis given the clinical and MRI findings and e levated inflammatory markers. Podiatry consulted and following. Currently on vancomycin and cefepime. Qualifiers: Osteomyelitis type: other acute Osteomyelitis location: foot Laterality: right Qualified Code(s): M86.171 - Other acute osteomyelitis, right ankle and foot (3) Diabetic foot ulcer Current Visit: Yes Status: Acute Location: Right foot heel. Likely secondary to poor fitting shoe. Wound care for the podiatry team. Qualifiers: Diabetic foot ulcer location: midfoot Diabetes mellitus type: type 2 Laterality: right Non-pressure ulcer stage: unspecified non-pressure ulcer stage Qualified Code(s): E11.621 - Type 2 diabetes mellitus with foot ulcer; L97.419 - Non-pressure chronic ulcer of right heel and midfoot with unspecified severity (4) Charcot's joint of foot Current Visit: No Status: Chronic Qualifiers: Laterality: right Qualified Code(s): M14.671 - Charcot's joint, right ankle and foot (5) HTN (hypertension) Current Visit: No Status: Chronic Qualifiers: Hypertension type: essential hypertension Qualified Code(s): I10 - Essential (primary) hypertension (6) Morbid obesity with BMI of 50.0-59.9, adult Current Visit: Yes Status: Chronic (7) Anxiety Current Visit: Yes Status: Acute (8) Major depressive disorder, recurrent episode, severe with anxious distress Current Visit: Yes Status: Acute Psychiatry consulted and following. (9) Type 2 diabetes mellitus with foot ulcer Current Visit: No Status: Acute Uncontrolled. HgbA1C 11%. Recommend strict glucose control. Management per the primary team. Qualifiers: Diabetes mellitus intermediate insulin use: with intermediate use Qualified Code(s): E11.621 - Type 2 diabetes mellitus with foot ulcer; L97.509 - Non-pressure chronic ulcer of other part of unspecified foot with unspecified severity; Z79.4 - middle or intermediate school principal (current) use of insulin (10) Constipation Current Visit: Yes Status: Acute The patient reports no BM x 1 week. Bowel regimen per the primary team. Qualifiers: Constipation type: unspecified constipation type Qualified Code(s): K59.00 - Constipation, unspecified - Subjective Interval history: Patient seen and examined. No acute events noted overnight. Patient states she feels a little bit better today. He continues to complain of chronic neuropathic pain to the right foot. Denies fevers, chills, or rigors. Denies chest pain, shortness of breath, or cough. Denies nausea, vomiting, diarrhea. She states she has not had a bowel movement a week. Denies any oral thrush or new skin lesions. Infect Dis PN-Objective Data - Labs CBC & Chem 7: 08/14/18 05:30 08/14/18 05:30 Labs: Laboratory Results - last 24 hr 08/12/18 08/12/18 08/13/18 17:30 23:01 05:58 WBC RBC Hgb Hct MCV MCH MCHC RDW Plt Count MPV Immature Gran % Seg Neutrophils % Lymphocytes % Monocytes % Eosinophils % Basophils % Neutrophils # Lymphocytes # Monocytes # Eosinophils # Basophils # Sodium 138 Potassium 3.7 Chloride 102 Carbon Dioxide 32 H BUN 17 Creatinine 0.87 Est GFR ( Amer) > 60 Est GFR (Non-Af Amer) > 60 BUN/Creatinine Ratio 20 Glucose 192 H POC Glucose 191 H Calculated Osmolality 293 Calcium 8.6 Magnesium 1.6 Random Vancomycin 15 08/13/18 05:58 WBC 5.1 RBC 3.19 L Hgb 8.7 L Hct 28.8 L MCV 90.3 MCH 27.3 L MCHC 30.2 L RDW 14.3 Plt Count 264 MPV 9.7 Immature Gran % 0.4 Seg Neutrophils % 49.0 Lymphocytes % 35.1 Monocytes % 9.6 Eosinophils % 5.1 Basophils % 0.8 Neutrophils # 2.5 Lymphocytes # 1.8 Monocytes # 0.5 Eosinophils # 0.3 Basophils # 0.0 Sodium Potassium Chloride Carbon Dioxide BUN Creatinine Est GFR ( Amer) Est GFR (Non-Af Amer) BUN/Creatinine Ratio Glucose POC Glucose Calculated Osmolality Calcium Magnesium Random Vancomycin Cultures: Cultures 08/09/18 18:00 Wound Culture - Final Right Foot No growth. 08/09/18 18:00 Anaerobic Culture - Preliminary Right Foot At this time, no anaerobic growth is present. The culture will be finalized after 5 days of incubation. Exam - Constitutional Vitals: Temp Pulse Resp BP Pulse Ox 98.3 F 89 12 109/71 95 08/13/18 07:01 08/13/18 07:01 08/13/18 07:01 08/13/18 07:01 08/13/18 07:01 General appearance: cooperative, morbidly obese, no acute distress - Head Head exam: Present: atraumatic, normal inspection, normocephalic - Eye Eye exam: Present: EOMI, normal appearance, PERRL Pupils: Present: normal accommodation - ENT ENT exam: Present: mucous membranes moist - Neck Neck exam: Present: normal inspection - Respiratory Respiratory exam: Present: CTAB. Absent: rales, respiratory distress, rhonchi, wheezes - Cardiovascular Cardiovascular exam: Present: RRR, +S1, +S2 - GI/Abdominal GI/Abdominal exam: Present: distended (Obese), normal bowel sounds, soft. Absent: tenderness - Extremities Exam Extremities exam: Present: pedal edema (Trace right lower extremity). Absent: normal inspection (Right foot dressing clean, dry, and intact. Previously marked erythema continues to receive from skin markings.), tenderness - Neurological Exam Neurological exam: Present: alert, oriented X3, no focal deficits - Psychiatric Psychiatric exam: Present: normal affect, normal mood - Skin Skin exam: Present: dry, intact, normal color, warm - Additional findings Additional findings: PICC line noted to the left upper extremity with transparent dressing clean, dry, and intact. Consult Discharge Plan - Plan Referrals: Juliane Sultana MD [Primary Care Provider] - Susanne Brambila CNP [Advanced Practice Nurse] - 08/27/18 2:05 pm - Attending Attestation I have personally performed a face to face evaluation on this patient. I have reviewed and agree with the care plan. History and Exam by me shows: cellulitis osteomyelitis right foot diabetic foot ulcer charcot's joint HTN continue vancomycin and cefepime duration of treatment depends on the clinical picture not sure if there is true osteo vs SSTI
[2018-08-13] MEDS: BuPROPion XL (24 HR) 150 MG TABLET PO SCH (09:51)
[2018-08-13] MEDS: *HR* OxyCODONE Immed Rel 5 MG TABLET PO PRN ×2 (09:52→20:38)
[2018-08-13] MEDS: Insulin LISPRO 300 UNITS/3 ML VIAL SQ SCH ×7 (09:53→20:28)
--- NOTE | 2018-08-13 13:04 | Internal Med Progress Note ---
Hospitalist Progress Note - Encounter Date of Encounter: 08/13/18 Time of Encounter: 11:45 - Subjective Interval History: Seems to be much less anxious today. Has any fever/chills, nausea/vomiting, or worsening R foot pain. - Exam Vitals: Temp Pulse Resp BP Pulse Ox 98.1 F 76 14 127/82 93 08/13/18 11:50 08/13/18 11:50 08/13/18 11:50 08/13/18 11:50 08/13/18 11:50 Exam: General: Alert and oriented, not in distress Cardiovascular:Normal S1 & S2, No JVD. Pulse regular. Lungs: clear to auscultation, no wheezes/rales Abdomen:Soft, non-tender, no rigidity. Extremities: R foot dressing c/d/i Neurological:Normal cognition and motor skills. Non-focal - Assessment and Plan (1) Diabetic foot ulcer Current Visit: Yes Status: Acute Assessment and Plan: Patient has had multiple bouts of infected right mid foot ulcer since 11/2018, with the latest admission to [facility] 3 weeks ago was just discharged on 08/07 with home IV abx but readmitted after being evaluated by her marine chronometer assembler on 08/08 in the office ESR/CRP elevated, XR -ve for OM MRI R foot 08/10 showed findings compatible with cellulitis. No abscess identified. Also raised a possibility of OM as well as septic joint. Tenosynovitis of the posterior tibialis and flexor hallucis longus. wound culture -ve was on vanc/levaquin which is switched to Vanc/cefepme, appreciate ID input NWB RLE for now podiatry input appreciated, to discuss potential surgical procedure with the patient later Dressing change per Podiatry SW consult for d/c planning (2) Diabetes Current Visit: Yes Status: Chronic Assessment and Plan: States that she used to be on 70/30 insulin 100U BID which was just switched to novolog only Poorly controlled, A1c 11.7 continue levemir 50U HS, lispro 10U TIDmeals, and high dose sliding scale. ADA diet (3) Displacement of peripherally inserted central catheter (PICC) Current Visit: Yes Status: Resolved Assessment and Plan: Patient had PICC inserted through L UE at the OSH but wasn't drawing or flushing well CXR showed tip pointing toward the right neck. Difficulty in obtaining alternative access due to her body habitus discussed with IR textile conservator over the weekend, catheter was pulled out by ~ 5cm and repeat CXR shows that it terminates over SVC Per PICC team and IR, does not need to be further repositioned or replaced. (4) HTN (hypertension) Current Visit: No Status: Chronic Assessment and Plan: resume home meds (5) Morbid obesity with BMI of 50.0-59.9, adult Current Visit: Yes Status: Chronic Assessment and Plan: Lifestyle modifications emphasized (6) Anxiety Current Visit: Yes Status: Acute Assessment and Plan: Patient is extremely anxious about the hospital course, taking Cymbalta currently appreciate psych input, WEllbutrin added continue PRN ativan (7) DVT prophylaxis Current Visit: Yes Status: Acute Assessment and Plan: SQ heparin - Time Spent with Patient Total time spent is greater than 50% in coordination of care (as documented) at patient's floor/unit and/or counseling patient: 25 - 35 minutes Plan of Care Discussed with: patient Internal Medicine: Result - Labs CBC & Chem 7: 08/13/18 05:58 08/13/18 05:58 Labs: Short CBC 08/13/18 Range/Units 05:58 WBC 5.1 (4.3-11.1) K/mcL Hgb 8.7 L (11.5-15.4) g/dL Hct 28.8 L (35.3-44.9) % Plt Count 264 (140-400) K/mcL Neutrophils # 2.5 (1.6-8.9) K/mcL BMP 08/13/18 05:58 Sodium 138 Potassium 3.7 Chloride 102 Carbon Dioxide 32 H BUN 17 Creatinine 0.87 Glucose 192 H Calcium 8.6 - ABG Interpretation ABG results: PT/INR, D-dimer PT 14.4 Seconds (9.4-12.1) H 08/09/18 04:10 Consult Discharge Plan - Plan Referrals: Juliane Sultana MD [Primary Care Provider] - (1) Diabetic foot ulcer Qualifiers: Diabetic foot ulcer location: midfoot Diabetes mellitus type: type 2 Laterality: right Non-pressure ulcer stage: unspecified non-pressure ulcer stage Qualified Code(s): E11.621 - Type 2 diabetes mellitus with foot ulcer; L97.419 - Non-pressure chronic ulcer of right heel and midfoot with unspecified severity (2) Diabetes Qualifiers: Diabetes mellitus type: type 2 Diabetes mellitus laborer marine terminal insulin use: with laborer marine terminal use Diabetes mellitus complication status: with other specified complication Qualified Code(s): E11.69 - Type 2 diabetes mellitus with other specified complication; Z79.4 - custodial (current) use of insulin (4) HTN (hypertension) Qualifiers: Hypertension type: essential hypertension Qualified Code(s): I10 - Essential (primary) hypertension
--- NOTE | 2018-08-13 13:05 | Podiatry Progress Note ---
Date of Encounter: 08/14/18 Time of Encounter: 12:00 - Assessment and Plan (1) Osteomyelitis Current Visit: Yes Status: Suspected I had a thorough review with the patient regarding her condition and MRI, my findings and her treatment options. We discussed doing an incision and drainage, possible gastroc recession and debridement of bone and sending bone to the pathology and microbiology lab for evaluation. Discussed with patient no guarantees that her limb could be salvaged and she understood that she could one day and up with an amputation of the leg should an infection become bad enough. It was also explained to the patient that she is going to require multiple procedures if her limb is even able to be salvaged. Nature of the procedure, ri sks versus benefits potential complications consequences of surgery and her condition discussed at length. Discussed importance of glycemic control in the increased chance of complications she can experience with an elevated A1c. All questions were answered and informed consent was signed. Qualifiers: Osteomyelitis type: other acute Osteomyelitis location: foot Laterality: right Qualified Code(s): M86.171 - Other acute osteomyelitis, right ankle and foot Subjective Interval history: Patient then admitted and receiving IV antibiotics. Patient has a right diabetic foot infection. MRI was done. There is serous fluid expressed from the foot. Patient is being taken to the operating room today for incision and drainage and debridement of bone, possible gastroc recession. Objective - Vital Signs Vital Signs: Vital Signs Temp Pulse Resp BP Pulse Ox 08/13/18 11:50 98.1 F 76 14 127/82 93 08/13/18 07:01 98.3 F 89 12 109/71 95 08/13/18 04:01 98.4 F 89 17 158/84 97 08/12/18 23:19 98.1 F 93 18 118/79 97 08/12/18 19:39 98.6 F 87 17 144/81 94 08/12/18 15:00 98.8 F 86 16 152/89 Intake and Output 08/12/18 08/13/18 08/13/18 23:59 07:59 15:59 Intake Total 220 / 220 Output Total 500 / 500 Balance -280 / -280 Intake: IV Fluids Maxipime 2,000 MG In Water for inj. (sterile) 20 ML @ 300 mls/ hr IVP Q12HR VETO Rx#:[id number] Oral 200 / 200 Output: Urine 500 / 500 Other: Blood Glucose* 191 181 216 - Exam Exam: Serosanguineous drainage expressed from the plantar wound of the foot. There is no purulence. Erythema of the foot. Charcot rocker bottom type foot. Absent protective sensation. - Lab Result Diagrams: 08/14/18 05:30 08/14/18 05:30 Labs: Abnormal lab results RBC 3.19 M/mcL (3.82-4.97) L 08/13/18 05:58 Hgb 8.7 g/dL (11.5-15.4) L 08/13/18 05:58 Hct 28.8 % (35.3-44.9) L 08/13/18 05:58 MCH 27.3 pg (28.0-33.3) L 08/13/18 05:58 MCHC 30.2 g/dL (31.6-35.5) L 08/13/18 05:58 ESR 100 mm/hr (0-15) H 08/08/18 13:04 PT 14.4 Seconds (9.4-12.1) H 08/09/18 04:10 Carbon Dioxide 32 mEq/L (23-29) H 08/13/18 05:58 Glucose 192 mg/dL (70-105) H 08/13/18 05:58 POC Glucose 191 mg/dL (70-99) H 08/12/18 23:01 Hemoglobin A1c 11.7 % (-5.6) H 08/09/18 04:10 C-Reactive Protein 40 mg/L (Less than 10) H 08/08/18 13:04 Vancomycin Trough 20 mcg/mL (5-10) H 08/10/18 17:15 Microbiology, Last 48 Hours 08/09/18 18:00 Wound Culture - Final Right Foot No growth. 08/09/18 18:00 Anaerobic Culture - Preliminary Right Foot At this time, no anaerobic growth is present. The culture will be finalized after 5 days of incubation. Consult Discharge Plan - Plan Referrals: Juliane Sultana MD [Primary Care Provider] - Susanne Brambila CNP [Advanced Practice Nurse] - 08/27/18 2:05 pm Subjective Interval history: patients foot is about the same and not improved. increased serosanginous drainage. will take to OR tomorrow afternoon for I&D and debridement of bone as not improved. patient in agreement.
[2018-08-13] MEDS: traMADol 50 MG TABLET PO PRN (13:31)
--- NOTE | 2018-08-13 19:02 | Anesthesia Evaluation PreOp ---
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 History: Other (depression, peripheral neuropathy) Other Medical History: Diabetes Type II, Other (55) Anesthesia History: No Prior Anesthetic Complications, Past Anesthesia (csection, carri, R foot) Alcohol Use: none Drug use: none Medications and Allergies Atorvastatin [Lipitor] 40 mg PO HS 08/08/18 [History] Duloxetine HCl [Cymbalta] 60 mg PO DAILY 08/08/18 [History] Insulin ASPART [Novolog Flexpen] 0 unit SQ TIDAC 08/08/18 [History] Losartan Potassium [Cozaar] 50 mg PO DAILY 08/08/18 [History] Ondansetron HCl [Zofran] 4 mg PO Q6H PRN 08/08/18 [History] Temazepam [Restoril] 15 mg PO HS PRN 08/08/18 [History] Allergy/AdvReac Type Severity Reaction Status Date / Time Penicillins Allergy Hives Verified 08/08/18 12:40 - Meds/Allergy Pre-op Review Medications Reviewed: Yes Allergies Reviewed: Yes Beta Blockers on Current Med List: No Anesthesia Results - Labs 08/13/18 05:58 08/13/18 05:58 - Imaging EKG: report reviewed (Sinus rhythm Borderline prolonged QT interval Electronically Signed On 08-10-2018 3:21:41 EDT by Christiano Shepard) Anesthesia Exam Vital Signs/O2 Sat, Most Current Temp Pulse Resp BP Pulse Ox 98.9 F 83 14 121/75 97 08/13/18 16:47 08/13/18 16:47 08/13/18 16:47 08/13/18 16:47 08/13/18 16:47 Weight: 146kg NPO (# of Hours): >8 - HEENT Pupil (Motor): Pupils equal, EOMI Mallampati: III Teeth: Normal Oral Opening: Greater than 3 - 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
[2018-08-13] MEDS: Insulin DETEMIR 100 UNIT/ML X5UNITS SQ SCH (20:27)
[2018-08-13] MEDS: Temazepam 15 MG CAPSULE PO PRN (20:39)
[2018-08-14] MEDS: *HR* LORazepam 2 MG/ML VIAL IVP PRN (05:39)
[2018-08-14] MEDS: *HR* Heparin 5,000 UNIT/ML VIAL SQ SCH ×3 (05:42→21:20)
[2018-08-14] MEDS: Cefepime HCl 2,000 MG in Water for inj. (sterile) 20 ML 20 ML IVP SCH ×2 (05:43→21:04)
[2018-08-14 06:19] LABS: Basophils % 0.7 %; Eosinophils # 0.4 K/mcL (0.0-0.6); Eosinophils % 6.5 %; Hematocrit 29.3 % (35.3-44.9); Hemoglobin 9.1 g/dL (11.5-15.4); Immature Granulocytes % 0.5 % (0-4); Lymphocytes # 1.8 K/mcL (0.6-4.6); Lymphocytes % 31.4 %; Mean Corpuscular HGB Conc 31.1 g/dL (31.6-35.5); Mean Corpuscular Hemoglobin 27.7 pg (28.0-33.3); Mean Corpuscular Volume 89.3 fL (83.0-100.0); Mean Platelet Volume 9.9 fL (9.4-12.4); Monocytes # 0.5 K/mcL (0.0-1.3); Monocytes % 8.1 %; Platelet Count 263 K/mcL (140-400); Red Blood Count 3.28 M/mcL (3.82-4.97); Red Cell Distribution Width 14.5 % (11.5-14.5); Segmented Neutrophils % 52.8 %
[2018-08-14 06:23] LABS: INR 1.1; Prothrombin Time 12.7 Seconds (9.4-12.1)
[2018-08-14 06:35] LABS: BUN/Creatinine Ratio 23 (6-26); Blood Urea Nitrogen 19 mg/dL (6-20); Calcium 8.7 mg/dL (8.6-10.3); Carbon Dioxide 30 mEq/L (23-29); Chloride 103 mEq/L (98-107); Glucose 154 mg/dL (70-105); Magnesium 1.7 mg/dL (1.6-2.6); Osmolality,Calculated 291 (280-300); Potassium 3.8 mEq/L (3.5-5.1); Sodium 138 mEq/L (136-145); eGFR For Non-African Americans > 60 (> 60)
[2018-08-14] MEDS: Insulin LISPRO 300 UNITS/3 ML VIAL SQ SCH ×6 (07:54→20:24)
[2018-08-14] MEDS: BuPROPion XL (24 HR) 150 MG TABLET PO SCH (08:00)
[2018-08-14] MEDS: *HR* OxyCODONE Immed Rel 5 MG TABLET PO PRN ×2 (12:00→18:02)
--- NOTE | 2018-08-14 12:59 | Infectious Disease Progress No ---
Date of Encounter: 08/13/18 Time of Encounter: 12:50 - Assessment and Plan (1) Cellulitis Current Visit: Yes Status: Acute Location: Right lower extremity. Causative organism: Unclear. Records from [facility] report GBS on wound culture. X-ray of the right foot was negative for osteomyelitis. MRI of the right foot showed findings consistent with cellulitis and reactive osteitis versus early osteomyelitis. ESR 100, CRP 40. Podiatry consulted and following. Planning to take the patient to the OR later today. Will ask Podiatry to get intra-op cultures if able. No sepsis criteria, but the patient had been on IV antibiotics for two weeks prior to coming here. No blood cultures were drawn. Improved. Currently on vancomycin and cefepime. Recommendations: Wound culture is negative. Likely because the patient was on IV antibiotics prior to admission. Wound care and activity per the Podiatry team. Await intra-op findings and cultures. Bowel regimen per the primary team. Continue Vancomycin IV. Pharmacy to dose. Goal trough ~15. Continue Cefepime 2 grams IV Q12H. Documented allergy to PCN, but low probability of cross-sensitivity. Will monitor closely. Duration of treatment depends on the clinical picture, however, given the patient's MRI findings and elevated ESR and CRP, I am concerned that there is in fact an underlying osteomyelitis so we will likely treat for an extended course up to 6 weeks. services host to assist with discharge planning. Monitor renal function for drug toxicity and dose adjust antibiotics. Will need weekly CBC, BUN/Cr, ESR, CRP, and Vanc trough. Will need weekly PICC care per protocol. Follow up with ID 08/27/18 at 1405. Qualifiers: Site of cellulitis: extremity Site of cellulitis of extremity: lower extremity Laterality: right Qualified Code(s): L03.115 - Cellulitis of right lower limb (2) Osteomyelitis Current Visit: Yes Status: Suspected Location: Right foot. Causative organism: Unclear. MRI showed findings consistent with reactive osteitis osteomyelitis. ESR 100, CRP 40. Highly suspicious of osteomyelitis given the clinical and MRI findings and elevated inflammatory markers. Podiatry consulted and following. Planning for OR later today. Currently on vancomycin and cefepime. Qualifiers: Osteomyelitis type: other acute Osteomyelitis location: foot Laterality: right Qualified Code(s): M86.171 - Other acute osteomyelitis, right ankle and foot (3) Diabetic foot ulcer Current Visit: Yes Status: Acute Location: Right foot heel. Likely secondary to poor fitting shoe. Wound care for the podiatry team. Qualifiers: Diabetic foot ulcer location: midfoot Diabetes mellitus type: type 2 Laterality: right Non-pressure ulcer stage: unspecified non-pressure ulcer stage Qualified Code(s): E11.621 - Type 2 diabetes mellitus with foot ulcer; L97.419 - Non-pressure chronic ulcer of right heel and midfoot with unspecified severity (4) Charcot's joint of foot Current Visit: No Status: Chronic Qualifiers: Laterality: right Qualified Code(s): M14.671 - Charcot's joint, right ankle and foot (5) HTN (hypertension) Current Visit: No Status: Chronic Qualifiers: Hypertension type: essential hypertension Qualified Code(s): I10 - Essential (primary) hypertension (6) Morbid obesity with BMI of 50.0-59.9, adult Current Visit: Yes Status: Chronic (7) Anxiety Current Visit: Yes Status: Acute (8) Major depressive disorder, recurrent episode, severe with anxious distress Current Visit: Yes Status: Acute Psychiatry consulted and following. (9) Type 2 diabetes mellitus with foot ulcer Current Visit: No Status: Acute Uncontrolled. HgbA1C 11%. Recommend strict glucose control. Management per the primary team. Qualifiers: Diabetes mellitus exterminator insulin use: with correction use Qualified Code(s): E11.621 - Type 2 diabetes mellitus with foot ulcer; L97.509 - Non- pressure chronic ulcer of other part of unspecified foot with unspecified severity; Z79.4 - exterminator (current) use of insulin (10) Constipation Current Visit: Yes Status: Acute The patient reports no BM x 1 week. Bowel regimen per the primary team. Qualifiers: Constipation type: unspecified constipation type Qualified Code(s): K59.00 - Constipation, unspecified - Subjective Interval history: Patient seen and examined. No acute events noted overnight. Patient states she feels a little bit better today. He continues to complain of chronic neuropathic pain to the right foot. Denies fevers, chills, or rigors. Denies chest pain, shortness of breath, or cough. Denies nausea, vomiting, diarrhea. She states she has not had a bowel movement in a week. Denies any oral thrush or new skin lesions. Going to the OR later today. Infect Dis PN-Objective Data - Labs CBC & Chem 7: 08/14/18 05:30 08/14/18 05:30 Labs: Laboratory Results - last 24 hr 08/13/18 08/13/18 08/13/18 07:46 11:46 16:44 WBC RBC Hgb Hct MCV MCH MCHC RDW Plt Count MPV Immature Gran % Seg Neutrophils % Lymphocytes % Monocytes % Eosinophils % Basophils % Neutrophils # Lymphocytes # Monocytes # Eosinophils # Basophils # PT INR Sodium Potassium Chloride Carbon Dioxide BUN Creatinine Est GFR ( Amer) Est GFR (Non-Af Amer) BUN/Creatinine Ratio Glucose POC Glucose 181 H 216 H 185 H Calculated Osmolality Calcium Magnesium 08/13/18 08/14/18 08/14/18 19:47 05:30 05:30 WBC 5.6 RBC 3.28 L Hgb 9.1 L Hct 29.3 L MCV 89.3 MCH 27.7 L MCHC 31.1 L RDW 14.5 Plt Count 263 MPV 9.9 Immature Gran % 0.5 Seg Neutrophils % 52.8 Lymphocytes % 31.4 Monocytes % 8.1 Eosinophils % 6.5 Basophils % 0.7 Neutrophils # 3.0 Lymphocytes # 1.8 Monocytes # 0.5 Eosinophils # 0.4 Basophils # 0.0 PT 12.7 H INR 1.1 Sodium Potassium Chloride Carbon Dioxide BUN Creatinine Est GFR ( Amer) Est GFR (Non-Af Amer) BUN/Creatinine Ratio Glucose POC Glucose 202 H Calculated Osmolality Calcium Magnesium 08/14/18 05:30 WBC RBC Hgb Hct MCV MCH MCHC RDW Plt Count MPV Immature Gran % Seg Neutrophils % Lymphocytes % Monocytes % Eosinophils % Basophils % Neutrophils # Lymphocytes # Monocytes # Eosinophils # Basophils # PT INR Sodium 138 Potassium 3.8 Chloride 103 Carbon Dioxide 30 H BUN 19 Creatinine 0.81 Est GFR ( Amer) > 60 Est GFR (Non-Af Amer) > 60 BUN/Creatinine Ratio 23 Glucose 154 H POC Glucose Calculated Osmolality 291 Calcium 8.7 Magnesium 1.7 Cultures: Cultures 08/09/18 18:00 Wound Culture - Final Right Foot No growth. 08/09/18 18:00 Anaerobic Culture - Preliminary Right Foot At this time, no anaerobic growth is present. The culture will be finalized after 5 days of incubation. Exam - Constitutional Vitals: Temp Pulse Resp BP Pulse Ox 98.3 F 84 16 148/79 98 08/14/18 05:38 08/14/18 05:38 08/14/18 05:38 08/14/18 05:38 08/14/18 05:38 General appearance: cooperative, morbidly obese, no acute distress - Head Head exam: Present: atraumatic, normal inspection, normocephalic - Eye Eye exam: Present: EOMI, normal appearance, PERRL Pupils: Present: normal accommodation - ENT ENT exam: Present: mucous membranes moist - Neck Neck exam: Present: normal inspection - Respiratory Respiratory exam: Present: CTAB. Absent: rales, respiratory distress, rhonchi, wheezes - Cardiovascular Cardiovascular exam: Present: RRR, +S1, +S2 - GI/Abdominal GI/Abdominal exam: Present: distended (obese), normal bowel sounds, soft. Absent: tenderness - Extremities Exam Extremities exam: Present: pedal edema (1+ RLE). Absent: joint swelling, normal inspection (Right foot dressing C/D/I.), tenderness - Neurological Exam Neurological exam: Present: alert, oriented X3, no focal deficits - Psychiatric Psychiatric exam: Present: normal affect, normal mood - Skin Skin exam: Present: dry, intact, normal color, warm Consult Discharge Plan - Plan Referrals: Juliane Sultana MD [Primary Care Provider] - Susanne Brambila CNP [Advanced Practice Nurse] - 08/27/18 2:05 pm - Attending Attestation I have personally performed a face to face evaluation on this patient. I have reviewed and agree with the care plan. History and Exam by me shows: A/P: cellulitis osteomyelitis right foot diabetic foot ulcer charcot's joint HTN Discussed with the podiatry team. They clinically think this is not infected. MRI could be lagging behind. And ESR could be elevated due to the Charcot. We decided to do at least 2 weeks worth of IV antibiotics and see how her inflammatory markers go and based on that he is continue vancomycin continue cefepime for now needs a picc line
[2018-08-14] MEDS ORDERED: Bupivacaine-MPF 0.25% 10 ML VIAL ONE (13:13)
[2018-08-14] MEDS ORDERED: Vancomycin 1,000 MG VIAL ONE (13:16)
[2018-08-14] MEDS ORDERED: *HR* FentaNYL (PF) 100 MCG/2 ML VIAL ONE (14:23)
[2018-08-14] MEDS ORDERED: *HR* Midazolam HCl 2 MG/2 ML VIAL ONE (14:23)
[2018-08-14] MEDS ORDERED: *HR* Propofol 200 MG/20 ML VIAL IVP ONE (14:23)
[2018-08-14] MEDS ORDERED: Lidocaine -MPF 2% 2 ML VIAL ONE (14:26)
[2018-08-14] MEDS ORDERED: Ondansetron 4 MG/2 ML VIAL ONE (14:26)
[2018-08-14] MEDS ORDERED: Dexamethasone 4 MG/ML VIAL ONE (14:26)
[2018-08-14] MEDS ORDERED: *HR* PHENYLEPHRINE 1,000 MCG/10 ML SYRINGE IVP ONE (15:08)
--- NOTE | 2018-08-14 16:03 | Internal Med Progress Note ---
Hospitalist Progress Note - Encounter Date of Encounter: 08/14/18 Time of Encounter: 16:00 - Subjective Interval History: I have seen and evaluated the patient at bedside. Patient reports pain in the right foot. denies nausea or vomiting - Exam Vitals: Temp Pulse Resp BP Pulse Ox 98.4 F 83 16 141/86 97 08/14/18 14:08 08/14/18 14:08 08/14/18 14:08 08/14/18 14:08 08/14/18 14:08 Exam: Vitals: reviewed General: Alert and oriented x3. in mild distress due to pain in the right foot HEENT: EOM, pupils equal, round and reactive. Cardiovascular: RRR, normal S1 & S2, no rubs, murmurs or gallops. Lungs: CTA b/l, no wheezes or crackles. Abdomen: Obese , soft, non-tender, no rigidity. Extremities: surgical dressing on the right foot, icd on the left. Neurological: Normal cognition. Rest of the physical exam is non contributory - Assessment and Plan (1) Diabetic foot ulcer Current Visit: Yes Status: Acute Assessment and Plan: Plan patient is scheduled for incision and drainage, possible gastroc recession and debridement of bone Continue broad-spectrum antibiotics On cefepime 2gm/IV Q12HRs and vancomycin per pharmacy dosing ID recommendation appreciated. Continue tramadol 50 mg by mouth every 6 hours for pain control. (2) Diabetes Current Visit: Yes Status: Chronic Assessment and Plan: Blood sugar is well controlled. Continue Levemir 50 units at bedtime plus lispro 10 units before meals, plus lispro medium dose sliding scale. Carb contr olled diet. (3) HTN (hypertension) Current Visit: No Status: Chronic Assessment and Plan: Blood pressure is well controlled on losartan 50 mg by mouth daily. (4) Morbid obesity with BMI of 50.0-59.9, adult Current Visit: Yes Status: Chronic (5) Displacement of peripherally inserted central catheter (PICC) Current Visit: Yes Status: Resolved (6) Anxiety Current Visit: Yes Status: Acute Assessment and Plan: Continue lorazepam 1 mg IV every 8 hours when necessary for agitation (7) Osteomyelitis Current Visit: Yes Status: Suspected Assessment and Plan: Plan of care as per problem #1. DVT Prophylaxis: Patient is on heparin subcutaneous. - Time Spent with Patient Total time spent is greater than 50% in coordination of care (as documented) at patient's floor/unit and/or counseling patient: Greater than 35 minutes (45) Plan of Care Discussed with: patient (and the nurse) Internal Medicine: Result - Labs CBC & Chem 7: 08/14/18 05:30 08/14/18 05:30 Labs: Short CBC 08/14/18 Range/Units 05:30 WBC 5.6 (4.3-11.1) K/mcL Hgb 9.1 L (11.5-15.4) g/dL Hct 29.3 L (35.3-44.9) % Plt Count 263 (140-400) K/mcL Neutrophils # 3.0 (1.6-8.9) K/mcL BMP 08/14/18 05:30 Sodium 138 Potassium 3.8 Chloride 103 Carbon Dioxide 30 H BUN 19 Creatinine 0.81 Glucose 154 H Calcium 8.7 - ABG Interpretation ABG results: PT/INR, D-dimer PT 12.7 Seconds (9.4-12.1) H 08/14/18 05:30 Consult Discharge Plan - Plan Referrals: Juliane Sultana MD [Primary Care Provider] - Susanne Brambila CNP [Advanced Practice Nurse] - 08/27/18 2:05 pm (1) Diabetic foot ulcer Qualifiers: Diabetic foot ulcer location: midfoot Diabetes mellitus type: type 2 Laterality: right Non-pressure ulcer stage: unspecified non-pressure ulcer stage Qualified Code(s): E11.621 - Type 2 diabetes mellitus with foot ulcer; L97.419 - Non-pressure chronic ulcer of right heel and midfoot with unspecified severity (2) Diabetes Qualifiers: Diabetes mellitus type: type 2 Diabetes mellitus intermediate manager insulin use: with intermediate manager use Diabetes mellitus complication status: with other specified complication Qualified Code(s): E11.69 - Type 2 diabetes mellitus with other specified complication; Z79.4 - long-term (current) use of insulin (3) HTN (hypertension) Qualifiers: Hypertension type: essential hypertension Qualified Code(s): I10 - Essential (primary) hypertension (7) Osteomyelitis Qualifiers: Osteomyelitis type: other acute Osteomyelitis location: foot Laterality: right Qualified Code(s): M86.171 - Other acute osteomyelitis, right ankle and foot
--- NOTE | 2018-08-14 16:13 | Operative Note ---
Date of procedure: 08/14/18 Pre-op diagnosis: right diabetic foot infection Post-op diagnosis: same Procedure: incision and drainage right foot debridement of calcaneus bone bone biopsy talus Implants: none Complications: none Anesthesia: GETA Local Anesthetics: 1% Lidocaine HCL SubQ (cc) Surgeon: Tanner Garner Was there an life science research assistant present: No Estimated blood loss (cc): 15 Specimen: micro and path-right calcaneus and talus, micro-soft tissue right foot Condition: stable Disposition: PACU Procedure in Detail: Indications: 47 year old diabetic female with elevated A1c over 11 and Charcot foot dislocation with recurrent ulceration and left diabetic foot infection being brought to the operating room for an incision and drainage, debridement of calcaneal bone and bone biopsy after having the nature of the procedures, risks versus benefits potential complications consequences of surgery in her condition discussed at length. No guarantees were made that her limb is salvageable in that she would be able to keep it. All of her questions have been answered and informed consent was signed. Patient of the preoperative holding area to the operating room placed on the operating room table in the supine position. The right foot was scrubbed prepped and draped in the usual sterile fashion and the following procedures began after inflating the tourniquet to 250 mmHg. Incision and drainage right foot. Attention was directed to the plantar aspect of the patient's right foot where incision was made through the ulceration and into the subcutaneous tissue and deep fascia layers were serosanguineous drainage was expressed. Some devitalized tissue was present and frias in nature and was excised. This tissue was sent to microbiology. The pulse lavage with vancomycin was used to irrigate the site. No purulence was expressed. Debridement of calcaneal bone. Attention was directed to the lateral aspect of the patient's right foot #15 blade used to make full thickness incision lateral aspect of the calcaneus and the soft tissue was reflected from the calcaneus and the sagittal saw was used to plane and resect the plantar surface of the heel until it was smooth and a rasp was also used to ensure that the bottom of the heel bone was smooth. Bone was sent to microbiology and pathology. There were no rough edges present at the conclusion of this procedure. Bone biopsy talus. Attention was directed to the superior lateral aspect of the patient's right foot where a stab incision was made and the Jamshidi needle inserted and bone specimens were obtained of the talus and sent to microbiology and pathology. C-arm was utilized to place half pins from the [employer] external fixation delta frame set. A half pin was placed into the midfoot another one into the navicular one in the talus and 1 into the calcaneus. The foot was manipulated and attempted to be reduced however with the Charcot dislocation and chronicity of the problem the reduction of the dislocated Charcot midfoot was not successful after multiple attempts. The half pins were removed. Preoperatively Charcot reconstruction was discussed with the patient and she will first get the wound healed and work on her A1c were for further invasive an extensive surgery is performed to try to correct her midfoot Charcot dislocation. Sutures were placed in the lateral incision consisting of 2-0 Prolene. No purulence was expressed through any of the incisions all incisions were irrigated. Postoperative bandaging included Xeroform, 4 x 4 gauze Kerlix and an Benoit wrap. Half-inch iodoform packing was placed into the plantar wound. Patient given strict instructions for nonweightbearing to the right lower extremity at this time. Elevation. Return to the floor where she will continue antibiotics and discharge planning.
--- NOTE | 2018-08-14 16:49 | Anesthesia Evaluation Post Op ---
Date of Encounter: 08/14/18 Time of Encounter: 16:48 - Vital Signs Vital Signs: Vital Signs/O2 Sat, Most Current Temp Pulse Resp BP Pulse Ox 99.7 F H 88 16 161/97 99 08/14/18 16:17 08/14/18 16:37 08/14/18 16:37 08/14/18 16:37 08/14/18 16:37 - Lungs Lungs: Clear Ascult./Percussion - Airway Airway: Non-obstructed - Cardiovascular Regular Rate - Mental Status Mental Status: Alert & Oriented, Answers Appropriately - Pain Pain Scale: 0 Pain Scale used: Numeric (1 - 10) - Nausea Vomiting Nausea Vomiting: Not Present - Hydration Hydration: NPO, Has not voided - Discharge PostOp Status: Transfer Patient to floor
[2018-08-14] MEDS ORDERED: Acetaminophen 325 MG TABLET PO PRN (17:21)
[2018-08-14] MEDS ORDERED: Dextrose Gel 15 GM/37.5 ML TUBE PO PRN ×2 (17:21)
[2018-08-14] MEDS ORDERED: *HR* Promethazine 25 MG/ML VIAL IVP PRN (17:21)
[2018-08-14] MEDS ORDERED: D5% in Water 1,000 ML IVC PRN (17:21)
[2018-08-14] MEDS ORDERED: *HR* LORazepam 2 MG/ML VIAL IVP PRN (17:21)
[2018-08-14] MEDS ORDERED: Naloxone 0.4 MG/ML INJ IVP PRN (17:21)
[2018-08-14] MEDS ORDERED: Temazepam 15 MG CAPSULE PO PRN (17:21)
[2018-08-14] MEDS ORDERED: *HR* Dextrose 50 % in Water (Syg) 50 ML SYRINGE IVP PRN (17:21)
[2018-08-14] MEDS ORDERED: Insulin DETEMIR 100 UNIT/ML X5UNITS SQ SCH (21:00)
[2018-08-14] MEDS ORDERED: Insulin LISPRO 300 UNITS/3 ML VIAL SQ SCH (21:00)
[2018-08-14] MEDS: Ondansetron 4 MG/2 ML VIAL IVP PRN (21:09)
[2018-08-14] MEDS ORDERED: Ketorolac 30 MG/ML VIAL IVP ONE (22:36)
[2018-08-15] MEDS: *HR* OxyCODONE Immed Rel 5 MG TABLET PO PRN ×3 (01:31→14:40)
[2018-08-15] MEDS: traMADol 50 MG TABLET PO PRN ×2 (03:52→11:27)
[2018-08-15 04:04] LABS: Basophils % 0.1 %; Hematocrit 27.7 % (35.3-44.9); Hemoglobin 8.6 g/dL (11.5-15.4); Immature Granulocytes % 0.4 % (0-4); Lymphocytes # 0.9 K/mcL (0.6-4.6); Lymphocytes % 12.6 %; Mean Corpuscular Hemoglobin 27.5 pg (28.0-33.3); Mean Corpuscular Volume 88.5 fL (83.0-100.0); Mean Platelet Volume 9.8 fL (9.4-12.4); Monocytes # 0.4 K/mcL (0.0-1.3); Platelet Count 249 K/mcL (140-400); Red Blood Count 3.13 M/mcL (3.82-4.97); Red Cell Distribution Width 14.2 % (11.5-14.5); Segmented Neutrophils % 81.9 %
[2018-08-15 04:13] LABS: BUN/Creatinine Ratio 27 (6-26); Blood Urea Nitrogen 25 mg/dL (6-20); Calcium 8.2 mg/dL (8.6-10.3); Carbon Dioxide 30 mEq/L (23-29); Chloride 100 mEq/L (98-107); Glucose 423 mg/dL (70-105); Magnesium 1.7 mg/dL (1.6-2.6); Osmolality,Calculated 300 (280-300); Phosphorous 3.1 mg/dL (2.7-4.5); Potassium 4.3 mEq/L (3.5-5.1); Sodium 134 mEq/L (136-145); eGFR For Non-African Americans > 60 (> 60)
[2018-08-15] MEDS: Cefepime HCl 2,000 MG in Water for inj. (sterile) 20 ML 20 ML IVP SCH (05:42)
[2018-08-15] MEDS: *HR* Heparin 5,000 UNIT/ML VIAL SQ SCH ×2 (05:43→13:29)
[2018-08-15] MEDS ORDERED: Insulin LISPRO 300 UNITS/3 ML VIAL SQ SCH (08:00)
[2018-08-15] MEDS: Insulin LISPRO 300 UNITS/3 ML VIAL SQ SCH ×4 (08:25→12:15)
[2018-08-15] MEDS ORDERED: BuPROPion XL (24 HR) 150 MG TABLET PO SCH (09:00)
[2018-08-15 10:39] VITALS: BP 139/78
--- NOTE | 2018-08-15 11:36 | Discharge Summary ---
- NOTES TO OUTPATIENT PROVIDER Notes to Outpatient Provider: Follow up with Infectious disease within a week of hospital discharge. Follow up with Podiatry on 08/22/18. Orders not resulted at time of discharge: Pending orders 08/09/18 18:00 Culture,Anaerobic [RM] Routine 08/14/18 XR foot 2V RT [XR] Routine 08/14/18 15:35 Culture,Anaerobic [RM] Routine Culture,Anaerobic [RM] Routine Culture,Anaerobic [RM] Routine Culture,Wound [RM] Routine Culture,Wound [RM] Routine Culture,Wound [RM] Routine 08/14/18 15:42 Surgical Pathology [PTH] Routine Date of Encounter: 08/15/18 Time of Encounter: 11:34 - Discharge Diagnosis (1) Diabetic foot ulcer Priority: Primary Status: Acute Qualifiers: Diabetic foot ulcer location: midfoot Diabetes mellitus type: type 2 Laterality: right Non-pressure ulcer stage: unspecified non-pressure ulcer stage Qualified Code(s): E11.621 - Type 2 diabetes mellitus with foot ulcer; L97.419 - Non-pressure chronic ulcer of right heel and midfoot with unspecified severity (2) Diabetes Priority: Secondary Status: Chronic Qualifiers: Diabetes mellitus type: type 2 Diabetes mellitus intermediate teacher insulin use: with intermediate teacher use Diabetes mellitus complication status: with other specified complication Qualified Code(s): E11.69 - Type 2 diabetes mellitus with other specified complication; Z79.4 - FPC (current) use of insulin (3) HTN (hypertension) Priority: Secondary Status: Chronic Qualifiers: Hypertension type: essential hypertension Qualified Code(s): I10 - Essential (primary) hypertension (4) Morbid obesity with BMI of 50.0-59.9, adult Priority: Secondary Status: Chronic (5) Displacement of peripherally inserted central catheter (PICC) Priority: Secondary Status: Resolved (6) Anxiety Priority: Secondary Status: Acute (7) Osteomyelitis Priority: Primary Status: Acute Qualifiers: Osteomyelitis type: other acute Osteomyelitis location: foot Laterality: right Qualified Code(s): M86.171 - Other acute osteomyelitis, right ankle and foot (8) Cellulitis Priority: Secondary Status: Acute Qualifiers: Site of cellulitis: extremity Site of cellulitis of extremity: lower extremity Laterality: right Qualified Code(s): L03.115 - Cellulitis of right lower limb (9) Charcot's joint of foot Priority: Secondary Status: Chronic Qualifiers: Laterality: right Qualified Code(s): M14.671 - Charcot's joint, right ankle and foot Hospital course: Ms. Galindo is a 47 year old female history of DM complicated by Charcot arthropathy, morbid obesity, who presented to the ED from podiatry office due to the concern of infected R foot ulcer. States that she has pain and swelling of the right foot associated with yellowish discharge. X-ray of the right foot demonstrated findings compatible with Charcot arthropathy as well as ulcer along the plantar aspect of the right foot. Patient admitted to the hospital for diabetic foot ulcer. managed with broad spectrum IV antibiotics. MRI of the foot: 1. Pronounced subcutaneous edema with associated postcontrast enhancement most consistent with cellulitis. Additionally there is a soft tissue defect along the plantar aspect of the hindfoot compatible with given history of ulceration. No well circumscribed drainable fluid collection identified at this time. 2. Marrow signal changes involving predominantly the calcaneus and talus and to a lesser extent the medial and lateral malleoli, cuboid, and remainder of the tarsal bones as described above. While findings may reflect reactive noninfectious osteitis given chronic hindfoot dislocation and potential for mechanical marrow signal change, osteomyelitis is of concern given the soft tissue findings and plantar ulceration. This is most concerning within the talus and calcaneus, however, marrow signal along the anterior calcaneus adjacent to the ulceration does appear to be grossly preserved. 3. Large mildly complex effusion about the hindfoot with findings highly suspicious for gas along the posterior aspect of the joint. While sterility of fluid is indeterminate on imaging, septic joint should be excluded. 4. Tenosynovitis of the posterior tibialis and flexor hallucis longus tendons as well as the peroneal tendons. 5. Chronic tear of the plantar fascia. 6. Tendinosis of the distal Achilles tendon. 7. Osteonecrosis of the distal tibia. Occupational Health Rn consulted. Patient underwent incision and drainage right foot debridement of calcaneus bone bone biopsy talus. would cultures no growth on discharge. ID consulted and recommended to discharge the patient on Ceftriaxone 2gm/IV daily and vancomycin 1,5mg/IV daily x2 weeks. Patient recommended to follow up with ID and podiatry for continuity of care as outpatient. Patient is hemodynamically stable to be discharged to SNF/ECF. - Time Spent with Patient Total time spent providing and/or coordinating discharge services: Time spent: Greater than 30 minutes (45) - Discharge Medications Prescriptions: New OxyCODONE Immed Rel [Roxicodone 5 MG] 10 mg PO Q6HR PRN 7 Days #15 tablet PRN Reason: Severe Pain BuPROPion XL (24 HR) [Wellbutrin Xl] 150 mg PO DAILY 30 Days #30 tab.er.24h Continue Losartan Potassium [Cozaar] 50 mg PO DAILY Atorvastatin [Lipitor] 40 mg PO HS Temazepam [Restoril] 15 mg PO HS PRN PRN Reason: Sleep Ondansetron HCl [Zofran] 4 mg PO Q6H PRN PRN Reason: NV Insulin ASPART [Novolog Flexpen] 0 unit SQ TIDAC Duloxetine HCl [Cymbalta] 60 mg PO DAILY Home Medications: Atorvastatin [Lipitor] 40 mg PO HS 08/08/18 [History] Duloxetine HCl [Cymbalta] 60 mg PO DAILY 08/08/18 [History] Insulin ASPART [Novolog Flexpen] 0 unit SQ TIDAC 08/08/18 [History] Losartan Potassium [Cozaar] 50 mg PO DAILY 08/08/18 [History] Ondansetron HCl [Zofran] 4 mg PO Q6H PRN 08/08/18 [History] Temazepam [Restoril] 15 mg PO HS PRN 08/08/18 [History] BuPROPion XL (24 HR) [Wellbutrin Xl] 150 mg PO DAILY 30 Days #30 tab.er.24h 08/15/18 [Rx] OxyCODONE Immed Rel [Roxicodone 5 MG] 10 mg PO Q6HR PRN 7 Days #15 tablet 08/15/18 [Rx] Allergies/Adverse Reactions: Allergy/AdvReac Type Severity Reaction Status Date / Time Penicillins Allergy Hives Verified 08/08/18 12:40 Date of admission: 08/08/18 16:30 Primary care physician: Juliane Sultana MD Consults: 08/08/18 15:50 Consult to Podiatry [CONS] Stat Consulting Provider: [facility] Reason for Consult: Diabetic foot with charcot joint, follows with Dr. Cook Call Completed: No 08/08/18 17:41 Consult to Pastoral Services [CONS] Routine Comment: 08/11/18 09:32 Consult to Psychiatry [CONS] Routine Consulting Provider: [facility] Reason consult: Medication recommendation Other reason and/or additional details: hx of anxiety/depression, admitted for possible septic R foot. Poorly controlled symptoms Call Completed: Yes 08/12/18 07:55 Consult to Occupational Therapy [CONS] Routine Comment: Evaluate, develop and implement POC Reason for Consult: Right foot ulcer, nonweightbearing. Does patient have active BEDREST order?: No Is patient medically & hemodynamically stable?: Yes Consult to Physical Therapy [CONS] Routine Comment: Evaluate, develop and implement POC Reason for Consult: Right foot ulcer, nonweightbearing. Does patient have active BEDREST order?: No Is patient medically & hemodynamically stable?: Yes Consult to Shoe Singer [CONS] Routine Reason for SW Consult: correction abx and placement 08/12/18 08:04 Consult to Infectious Diseases [CONS] Routine Consulting Provider: Infectious Disease [facility] Reason for Consult: R plantar foot cellulitis with tenosynovitis, possible OM/septic joint but no plan for surgical intervention. abx recommendation Call Completed: Yes - Constitutional Vitals: Temp Pulse Resp BP Pulse Ox 98.2 F 85 15 139/78 96 08/15/18 10:38 08/15/18 10:38 08/15/18 10:38 08/15/18 10:38 08/15/18 10:38 Exam: Vitals: reviewed General: Alert and oriented x3. No distress HEENT: EOM, pupils equal, round and reactive. Cardiovascular: RRR, normal S1 & S2, no rubs, murmurs or gallops. Lungs: CTA b/l, no wheezes or crackles. Abdomen: Obese , soft, non-tender, no rigidity. NABS in all 4 quadrants Extremities: surgical dressing on the right foot, icd on the left. decreased sensation on the right lower extr Neurological: Normal cognition. Rest of the physical exam is non contributory - Patient Status Disposition: Transfer SNF Condition: Good Functional capacity at discharge: uses cane/walker Overall status at discharge: patient is progressing back to baseline - Discharge Instructions Follow Up With: Juliane Sultana MD [Primary Care Provider] - Susanne Brambila [employer] [Advanced Practice Nurse] - 08/27/18 2:05 pm - Diet and Activity Activity: as per physical therapy Diet: diabetic diet, low salt diet
--- NOTE | 2018-08-15 11:47 | Physician Discharge Referral ---
ExtendedCare Referral Info Transfer To: SNF - Diagnosis (1) Diabetic foot ulcer Priority: Primary Status: Acute (2) Diabetes Priority: Secondary Status: Chronic (3) HTN (hypertension) Priority: Secondary Status: Chronic (4) Morbid obesity with BMI of 50.0-59.9, adult Priority: Secondary Status: Chronic (5) Displacement of peripherally inserted central catheter (PICC) Priority: Secondary Status: Resolved (6) Anxiety Priority: Secondary Status: Acute (7) Osteomyelitis Priority: Secondary Status: Acute (8) Cellulitis Priority: Secondary Status: Acute (9) Charcot's joint of foot Priority: Secondary Status: Chronic Prognosis: Fair Aware of Diagnosis: Patient Aware of Prognosis: Patient - Transfer Medications Prescriptions: OxyCODONE Immed Rel [Roxicodone 5 MG] 10 mg PO Q6HR PRN 7 Days #15 tablet PRN Reason: Severe Pain BuPROPion XL (24 HR) [Wellbutrin Xl] 150 mg PO DAILY 30 Days #30 tab.er.24h Home Medications: Atorvastatin [Lipitor] 40 mg PO HS 08/08/18 [History] Duloxetine HCl [Cymbalta] 60 mg PO DAILY 08/08/18 [History] Insulin ASPART [Novolog Flexpen] 0 unit SQ TIDAC 08/08/18 [History] Losartan Potassium [Cozaar] 50 mg PO DAILY 08/08/18 [History] Ondansetron HCl [Zofran] 4 mg PO Q6H PRN 08/08/18 [History] Temazepam [Restoril] 15 mg PO HS PRN 08/08/18 [History] BuPROPion XL (24 HR) [Wellbutrin Xl] 150 mg PO DAILY 30 Days #30 tab.er.24h 07/27 06/15 [Rx] OxyCODONE Immed Rel [Roxicodone 5 MG] 10 mg PO Q6HR PRN 7 Days #15 tablet 08/15/18 [Rx] Allergies/Adverse Reactions: Allergy/AdvReac Type Severity Reaction Status Date / Time Penicillins Allergy Hives Verified 08/08/18 12:40 - Respiratory Orders None Smoking Cessation: Smoking cessation has been advised. For more information, call the [employer] Tobacco Quit Line at 8-839-RCVX-NOW. - Advance Directives Code Status: Full Code - Mobility Orders Ambulate - Rehabiliation Orders Rehab Potential: Fair Rehab Orders: Evaluation for Physical Therapy, Evaluation for Occupational Therapy - Diet Orders Regular CERTIFICATION: I certify that the transfer of the above named patient to an Extended Care Facility is necessary for the continuing treatment of the diagnosis listed. The above information is true and accurate reflection of patient's current condition. Confidential - Redisclosure prohibited without a patient's written consent.
--- NOTE | 2018-08-15 11:54 | Podiatry Progress Note ---
Date of Encounter: 08/15/18 Time of Encounter: 09:45 - Assessment and Plan (1) Osteomyelitis Current Visit: Yes Status: Acute Assessment: -Dressing intact with strike through noted of sanguineous drainage -Dressing removed and noted sanguineous drainage plantar surgical wound -2/4 PT/DP pulse rle -Cap refill immediate -Movement of toes noted -WBC 7.4 Plan: -Dressing and iodoform packing removed -Site flushed with .9 NS and pat dry -1/2" iodoform packing placed in surgical wound plantar aspect right foot -Sutured sites lateral and medical aspects right foot covered with Xeroform, 4x4, and secured with Kerlix, and LAURA -Wound care orders placed -Nursing to change dressing daily and reinforce if saturation occurs -Non weight bearing right lower extremity -Keep lower extremities elevated while in bed -Okay to discharge to ECF -[facility] up [facility], call for appointment before discharge Qualifiers: Osteomyelitis type: other acute Osteomyelitis location: foot Laterality: right Qualified Code(s): M86.171 - Other acute osteomyelitis, right ankle and foot Subjective Interval history: Post op day #1 incision and drainage right foot, debridement of calcaneus bone, and bone biopsy talus by Dr. Garner on 07/17/2018 Patient is alert and oriented x 3 sitting in chair and no acute distress noted. Patient denies any chest pain, shortness of breath, or calf pain. Patient denies any fever, chills, nausea, vomiting, or diarrhea. Patient is tearful and states she does not think she can go home and take care of foot, requesting to go to ECF. Objective - Vital Signs Vital Signs: Vital Signs Temp Pulse Resp BP Pulse Ox 08/15/18 10:38 98.2 F 85 15 139/78 96 08/15/18 07:28 98.4 F 82 14 115/69 96 08/15/18 03:28 98.0 F 87 15 130/76 91 08/14/18 23:17 98.8 F 88 16 139/80 94 08/14/18 20:06 98.6 F 87 10 151/75 92 08/14/18 18:04 98.5 F 87 16 145/86 93 08/14/18 17:30 98.5 F 88 14 146/82 94 08/14/18 16:57 99.0 F 87 16 156/87 99 08/14/18 16:47 99.1 F 88 16 153/80 99 08/14/18 16:37 88 16 161/97 99 08/14/18 16:27 90 16 163/90 99 08/14/18 16:17 99.7 F H 91 20 165/86 99 08/14/18 14:08 98.4 F 83 16 141/86 97 Intake and Output 08/14/18 08/15/18 08/15/18 23:59 07:59 15:59 Intake Total 1010 / 1010 Output Total Balance 1000 / 1000 Intake: IV Fluids 770 / 770 Maxipime 2,000 MG In Water for inj. (sterile) 20 ML @ 300 mls/ hr IVP Q12HR ON LICENSE OF [facility] Rx#:[id number] Vancocin 1,500 MG In 0.9 % 250 / 250 Sodium Chloride 250 ML @ 167 mls/hr IVPB Q24H VETO Rx#: [id number] Oral 240 / 240 Output: Estimated Blood Loss Other: Meal Dinner Percent of Meal Consumed 95% # Voids 1 Weight 146.4 kg Blood Glucose* 357 357 Patient Weight 08/15/18 23:59 Weight 146.4 kg - Exam Exam: Constitutional: Alert and oriented x 3, well nourished, no acute distress noted Vascular: 2/4 DP/PT pulse right lower extremity, skin warm from toes to tibia, no pain with calf squeeze right lower extremity, cap refill immediate to toes Neurological: Diminished protective sensation, abnormal proprioception dorsiflexion/plantar flexion Dermatological: Sutures medial and lateral aspect of right foot intact without any evidence of infection, edges well approximated, no cellulitis, no lymphangitis, no odor. Sanguineous drainage noted surgical wound plantar aspect of right foot. Musculoskeletal: 3/5 muscle strength and normal tone bilaterally - Lab Result Diagrams: 08/15/18 03:40 08/15/18 03:40 Labs: Abnormal lab results RBC 3.13 M/mcL (3.82-4.97) L 08/15/18 03:40 Hgb 8.6 g/dL (11.5-15.4) L 08/15/18 03:40 Hct 27.7 % (35.3-44.9) L 08/15/18 03:40 MCH 27.5 pg (28.0-33.3) L 08/15/18 03:40 MCHC 31.0 g/dL (31.6-35.5) L 08/15/18 03:40 ESR 100 mm/hr (0-15) H 08/08/18 13:04 PT 12.7 Seconds (9.4-12.1) H 08/14/18 05:30 Sodium 134 mEq/L (136-145) L 08/15/18 03:40 Carbon Dioxide 30 mEq/L (23-29) H 08/15/18 03:40 BUN 25 mg/dL (6-20) H 08/15/18 03:40 BUN/Creatinine Ratio 27 (6-26) H 08/15/18 03:40 Glucose 423 mg/dL (70-105) H 08/15/18 03:40 POC Glucose 357 mg/dL (70-99) H 08/14/18 19:22 Hemoglobin A1c 11.7 % (-5.6) H 08/09/18 04:10 Calcium 8.2 mg/dL (8.6-10.3) L 08/15/18 03:40 C-Reactive Protein 40 mg/L (Less than 10) H 08/08/18 13:04 Vancomycin Trough 15 mcg/mL (5-10) H 08/14/18 18:10 Microbiology, Last 48 Hours 08/14/18 15:35 Gram Stain - Final Right Foot 08/14/18 15:35 Gram Stain - Final Right Foot 08/14/18 15:35 Gram Stain - Final Right Foot 08/14/18 15:35 Wound Culture - Preliminary Right Foot Culture is incubating. 08/14/18 15:35 Anaerobic Culture - Preliminary Right Foot Culture is incubating. 08/14/18 15:35 Wound Culture - Preliminary Right Foot Culture is incubating. 08/14/18 15:35 Anaerobic Culture - Preliminary Right Foot Culture is incubating. 08/14/18 15:35 Wound Culture - Preliminary Right Foot Culture is incubating. 08/14/18 15:35 Anaerobic Culture - Preliminary Right Foot Culture is incubating. Consult Discharge Plan - Plan Referrals: Juliane Sultana MD [Primary Care Provider] - Susanne Brambila CNP [Advanced Practice Nurse] - 08/27/18 2:05 pm Prescriptions: OxyCODONE Immed Rel [Roxicodone 5 MG] 10 mg PO Q6HR PRN 7 Days #15 tablet PRN Reason: Severe Pain BuPROPion XL (24 HR) [Wellbutrin Xl] 150 mg PO DAILY 30 Days #30 tab.er.24h
[2018-08-15] MEDS: Ondansetron 4 MG/2 ML VIAL IVP PRN (12:16)
--- NOTE | 2018-08-15 12:33 | Infectious Disease Progress No ---
Date of Encounter: 08/15/18 Time of Encounter: 10:45 - Assessment and Plan (1) Cellulitis Status: Acute Location: Right lower extremity. Causative organism: Unclear. X-ray of the right foot was negative for osteomyelitis. MRI of the right foot showed findings consistent with cellulitis and reactive osteitis versus early osteomyelitis. ESR 100, CRP 40. Podiatry consulted and following. Status post I & D right foot with debridement of calcaneus and bone biopsy of talus 08/14/[address] Garner. Operative note reviewed. Intra-op cultures pending. No sepsis criteria, but the patient had been on IV antibiotics for two weeks prior to coming here. No blood cultures were drawn. Improved clinically. Currently on vancomycin and cefepime. Recommendations: Wound culture is negative. Likely because the patient was on IV antibiotics prior to admission. I called and spoke with the micro lab at [facility] and they tell me the patient had no cultures there. I have asked nursing to request records from recent hospitalization. Wound care and activity per the Podiatry team. Await intra-op cultures. Bowel regimen per the primary team. Continue Vancomycin IV. Pharmacy to dose. Goal trough ~15. Discontinue Cefepime. Start Rocephin 2 grams IV daily. Duration of treatment depends on the clinical picture, however, given the patient's MRI findings and elevated ESR and CRP, I am concerned that there is in fact an underlying osteomyelitis so we will likely treat for an extended course up to 6 weeks. guest services ambassador to assist with discharge planning. Monitor renal function for drug toxicity and dose adjust antibiotics. Will need weekly CBC, BUN/Cr, ESR, CRP, and Vanc trough. Will need weekly PICC care per protocol. Follow up with ID 08/27/18 at 1405. Qualifiers: Site of cellulitis: extremity Site of cellulitis of extremity: lower extremity Laterality: right Qualified Code(s): L03.115 - Cellulitis of right lower limb (2) Osteomyelitis Status: Acute Location: Right foot. Causative organism: Unclear. MRI showed findings consistent with reactive osteitis osteomyelitis. ESR 100, CRP 40. Highly suspicious of osteomyelitis given the clinical and MRI findings and elevated inflammatory markers. Podiatry consulted and following. Status post I & D with debridement of calcaneus and bone biopsy of talus 08/14/[address] Garner. Intra-op cultures and path are pending. Currently on vancomycin and cefepime. Qualifiers: Osteomyelitis type: other acute Osteomyelitis location: foot Laterality: right Qualified Code(s): M86.171 - Other acute osteomyelitis, right ankle and foot (3) Diabetic foot ulcer Status: Acute Location: Right foot heel. Likely secondary to poor fitting shoe. Wound care for the podiatry team. Qualifiers: Diabetic foot ulcer location: midfoot Diabetes mellitus type: type 2 Laterality: right Non-pressure ulcer stage: unspecified non-pressure ulcer stage Qualified Code(s): E11.621 - Type 2 diabetes mellitus with foot ulcer; L97.419 - Non-pressure chronic ulcer of right heel and midfoot with unspecified severity (4) Charcot's joint of foot Status: Chronic Qualifiers: Laterality: right Qualified Code(s): M14.671 - Charcot's joint, right ankle and foot (5) HTN (hypertension) Status: Chronic Qualifiers: Hypertension type: essential hypertension Qualified Code(s): I10 - Essential (primary) hypertension (6) Morbid obesity with BMI of 50.0-59.9, adult Status: Chronic (7) Anxiety Status: Acute (8) Major depressive disorder, recurrent episode, severe with anxious distress Status: Acute Psychiatry consulted and following. (9) Type 2 diabetes mellitus with foot ulcer Status: Acute Uncontrolled. HgbA1C 11%. Recommend strict glucose control. Management per the primary team. Qualifiers: Diabetes mellitus prison insulin use: with prison use Qualified Code(s): E11.621 - Type 2 diabetes mellitus with foot ulcer; L97.509 - Non- pressure chronic ulcer of other part of unspecified foot with unspecified severity; Z79.4 - [facility] (current) use of insulin (10) Constipation Status: Acute The patient reports no BM x 1 week. Bowel regimen per the primary team. Qualifiers: Constipation type: unspecified constipation type Qualified Code(s): K59.00 - Constipation, unspecified - Subjective Interval history: Patient seen and examined. No acute events noted overnight. Patient states she feels a little bit better today. She continues to complain of chronic neuropathic pain to the right foot but states the pain is a little worse since surgery. Denies fevers, chills, or rigors. Denies chest pain, shortness of breath, or cough. Denies nausea, vomiting, diarrhea. She states she has not had a bowel movement in a week, but she feels like she might go today. Denies any oral thrush or new skin lesions. Infect Dis PN-Objective Data - Labs CBC & Chem 7: 08/15/18 03:40 08/15/18 03:40 Labs: Laboratory Results - last 24 hr 08/14/18 08/14/18 08/14/18 07:27 11:55 13:45 WBC RBC Hgb Hct MCV MCH MCHC RDW Plt Count MPV Immature Gran % Seg Neutrophils % Lymphocytes % Monocytes % Eosinophils % Basophils % Neutrophils # Lymphocytes # Monocytes # Eosinophils # Basophils # Sodium Potassium Chloride Carbon Dioxide BUN Creatinine Est GFR ( Amer) Est GFR (Non-Af Amer) BUN/Creatinine Ratio Glucose POC Glucose 138 H 236 H Calculated Osmolality Calcium Phosphorus Magnesium Urine Test Negative Vancomycin Trough 08/14/18 08/14/18 08/14/18 17:14 18:10 19:22 WBC RBC Hgb Hct MCV MCH MCHC RDW Plt Count MPV Immature Gran % Seg Neutrophils % Lymphocytes % Monocytes % Eosinophils % Basophils % Neutrophils # Lymphocytes # Monocytes # Eosinophils # Basophils # Sodium Potassium Chloride Carbon Dioxide BUN Creatinine Est GFR ( Amer) Est GFR (Non-Af Amer) BUN/Creatinine Ratio Glucose POC Glucose 262 H 357 H Calculated Osmolality Calcium Phosphorus Magnesium Urine Test Vancomycin Trough 15 H 08/15/18 08/15/18 03:40 03:40 WBC 7.4 RBC 3.13 L Hgb 8.6 L Hct 27.7 L MCV 88.5 MCH 27.5 L MCHC 31.0 L RDW 14.2 Plt Count 249 MPV 9.8 Immature Gran % 0.4 Seg Neutrophils % 81.9 Lymphocytes % 12.6 Monocytes % 5.0 Eosinophils % 0.0 Basophils % 0.1 Neutrophils # 6.0 Lymphocytes # 0.9 Monocytes # 0.4 Eosinophils # 0.0 Basophils # 0.0 Sodium 134 L Potassium 4.3 Chloride 100 Carbon Dioxide 30 H BUN 25 H Creatinine 0.91 Est GFR ( Amer) > 60 Est GFR (Non-Af Amer) > 60 BUN/Creatinine Ratio 27 H Glucose 423 H POC Glucose Calculated Osmolality 300 Calcium 8.2 L Phosphorus 3.1 Magnesium 1.7 Urine Test Vancomycin Trough Cultures: Cultures 08/09/18 18:00 Anaerobic Culture - Final Right Foot No anaerobes were recovered. 08/14/18 15:35 Gram Stain - Final Right Foot 08/14/18 15:35 Gram Stain - Final Right Foot 08/14/18 15:35 Gram Stain - Final Right Foot 08/14/18 15:35 Wound Culture - Preliminary Right Foot Culture is incubating. 08/14/18 15:35 Anaerobic Culture - Preliminary Right Foot Culture is incubating. 08/14/18 15:35 Wound Culture - Preliminary Right Foot Culture is incubating. 08/14/18 15:35 Anaerobic Culture - Preliminary Right Foot Culture is incubating. 08/14/18 15:35 Wound Culture - Preliminary Right Foot Culture is incubating. 08/14/18 15:35 Anaerobic Culture - Preliminary Right Foot Culture is incubating. 08/09/18 18:00 Wound Culture - Final Right Foot No growth. Serology 08/14/18 Range/Units 13:45 Urine Test Negative (Negative) - Impressions Impressions Fluoroscopy 08/14/18 00:00 IMPRESSION: Intraprocedural fluoroscopic spot images as above. See separate procedure report for more information. D/ / Eyad Wright MD / Eyad Wright MD Interpreting Provider: Eyad Wright MD Exam - Constitutional Vitals: Temp Pulse Resp BP Pulse Ox 98.2 F 85 15 139/78 96 08/15/18 10:38 08/15/18 10:38 08/15/18 10:38 08/15/18 10:38 08/15/18 10:38 General appearance: cooperative, morbidly obese, no acute distress - Head Head exam: Present: atraumatic, normal inspection, normocephalic - Eye Eye exam: Present: EOMI, normal appearance, PERRL Pupils: Present: normal accommodation - ENT ENT exam: Present: mucous membranes moist - Neck Neck exam: Present: normal inspection - Respiratory Respiratory exam: Present: CTAB. Absent: rales, respiratory distress, rhonchi, wheezes - Cardiovascular Cardiovascular exam: Present: RRR, +S1, +S2 - GI/Abdominal GI/Abdominal exam: Present: distended (obese), normal bowel sounds, soft. Absent: tenderness - Extremities Exam Extremities exam: Present: pedal edema (Trace, right LE). Absent: normal inspection (Right foot dressing C/D/I.), tenderness - Neurological Exam Neurological exam: Present: alert, oriented X3, no focal deficits - Psychiatric Psychiatric exam: Present: normal affect, normal mood - Skin Skin exam: Present: dry, intact, normal color, warm Consult Discharge Plan - Plan Additional Instructions: WOUND CARE RIGHT FOOT: Cleanse with 0.9 NS. Pack with 1/4 inch iodaform gauze. Cover with Xeroform, 4x4 dry gauze, ABD pads, and kerlex. Secure with medipore tape. CHANGE DAILY. Follow-up appointments: If there is not an appointment listed below, please call your physician and schedule a follow-up appointment. If you have congestive heart failure and your symptoms return, make an appointment with your physician. Medication List: Carry an up to date list of medications you are taking at all time. We have given you an updated medication list including any new medications that you have been prescribed. Please provide that list to your primary provider Symptoms: If your condition changes or you experience any of the following symptoms, notify your physician immediately: Unusual or worsening pain, fever, persistent nausea and vomiting, bleeding, increase in swelling (especially in your legs), sudden weight gain, extreme dizziness, chest pain, increased drainage or redness from a wound or incision. Go to the emergency department if you experience a problem with breathing. Weights: If you have a history of swelling or shortness of breath, weigh yourself daily and notify your physician if you have a weight gain of two or more pounds in one day or 5 or more pounds in a week. If you experience any of the warning signs for stroke: Sudden numbness or weakness of the face, arm or leg; especially on one side of the body, sudden confusion, trouble speaking or understanding, sudden trouble seeing in one or both eyes, sudden trouble walking, dizziness, loss of balance or coordination, sudden sever headache with no cause; Call 911 or go to the emergency room. Stroke is a medical emergency. Some risk factors for stroke: Age, cigarette smoking, diabetes, excessive alcohol consumption, family history, high blood pressure, overweight, physical inactivity, prior stroke, heart attac k, diagnosis of carotid artery stenosis or other artery disease. If you smoke, STOP: Smoking or tobacco use significantly increases your risk of heart and lung disease. Your chance of disease greatly increases if you continue to smoke. For more information, call the [place] tobacco quit line for smoking cessation 9-978-BPFG-NOW ( ) Referrals: Juliane Sultana MD [Primary Care Provider] - Tanner Garner DPM [Partnered Physician] - (WEB-REQUEST SENT. OFFICE WILL CALL FACILITY WITH APPT ) Susanne Brambila CNP [Advanced Practice Nurse] - 08/27/18 2:05 pm Prescriptions: RX: OxyCODONE Immed Rel [Roxicodone 5 MG] 10 mg PO Q6HR PRN 7 Days #15 tablet PRN Reason: Severe Pain RX: BuPROPion XL (24 HR) [Wellbutrin Xl] 150 mg PO DAILY 30 Days #30 tab.er.24h - Attending Attestation I have personally performed a face to face evaluation on this patient. I have reviewed and agree with the care plan. History and Exam by me shows: A/P: cellulitis osteomyelitis right foot diabetic foot ulcer charcot's joint HTN Discussed with the podiatry team. They clinically think this is not infected. MRI could be lagging behind. And ESR could be elevated due to the Charcot. We decided to do at least 2 weeks worth of IV antibiotics and see how her inflammatory markers go and based on that he is continue vancomycin continue cefepime for now needs a picc line
[2018-08-15] MEDS ORDERED: cefTRIAXone 2,000 MG in Water for inj. (sterile) 20 ML 20 ML IVP SCH (13:00)
[2018-08-15] MEDS ORDERED: Aminoglycoside Consult 1 EACH MC ONE (14:47)
[2018-08-15] MEDS ORDERED: Insulin DETEMIR 100 UNIT/ML X5UNITS SQ SCH (21:00)
== END 2018-08-15 14:48 | DRG 623 ==
LOC: EMEROOARM 11:45 → 3NENU 11:45 → SUATTDRO 16:00 → 3NENU 17:16
PROVIDERS: ADMIT Internal Medicine; ATTEND Internal Medicine

== ENCOUNTER 2019-03-31 15:20 | Inpatient (IN) ==
[2019-03-31] MEDS ORDERED: Morphine Sulfate 2 MG/ML SYRINGE IVP STA (17:56)
[2019-03-31] MEDS ORDERED: Cefepime HCl 2,000 MG in 0.9 % Sodium Chloride Mini Bag 100 ML IVPB STA (18:14)
[2019-03-31] MEDS ORDERED: Vancomycin (wt based) 1,000 MG VIAL IVPB ONE (18:15)
[2019-03-31 18:35] LABS: Hematocrit 35.3 % (35.3-44.9); Hemoglobin 11.3 g/dL (11.5-15.4); Immature Granulocytes % 1.6 % (0-4); Lymphocytes % 12.3 %; Mean Corpuscular Hemoglobin 28.7 pg (28.0-33.3); Mean Corpuscular Volume 89.6 fL (83.0-100.0); Mean Platelet Volume 10.2 fL (9.4-12.4); Monocytes % 5.2 %; Platelet Count 265 K/mcL (140-400); Red Blood Count 3.94 M/mcL (3.82-4.97); Red Cell Distribution Width 12.4 % (11.5-14.5); Segmented Neutrophils % 77.9 %; White Blood Count 11.9 K/mcL (4.3-11.1)
[2019-03-31 18:36] LABS: Basophils # 0.1 K/mcL (0.0-0.2); Basophils % 0.5 %; Eosinophils # 0.3 K/mcL (0.0-0.6); Eosinophils % 2.5 %; Lymphocytes # 1.5 K/mcL (0.6-4.6); Monocytes # 0.6 K/mcL (0.0-1.3); Neutrophils # 9.3 K/mcL (1.6-8.9)
[2019-03-31] MEDS ORDERED: Cefepime HCl 2,000 MG in Water for inj. (sterile) 20 ML IVP STA (18:42)
[2019-03-31 19:03] LABS: Acetaminophen < 10 mcg/mL (10-20); BUN/Creatinine Ratio 18 (6-26); Blood Urea Nitrogen 16 mg/dL (6-20); C-Reactive Protein 239 mg/L (Less than 10); Calcium 8.8 mg/dL (8.6-10.3); Carbon Dioxide 23 mEq/L (23-29); Chloride 96 mEq/L (98-107); Ethanol < 10 mg/dL (Less than 10); Glucose 410 mg/dL (70-105); Osmolality,Calculated 288 (280-300); Salicylate < 2.5 mg/dL (15.0-30.0); Sodium 130 mEq/L (136-145); eGFR For African Americans > 60 (> 60); eGFR For Non-African Americans > 60 (> 60)
[2019-03-31] MEDS ORDERED: Naloxone 0.4 MG/ML INJ IVP PRN (22:24)
[2019-03-31] MEDS ORDERED: D5% in Water 1,000 ML IVC PRN (22:24)
[2019-03-31] MEDS ORDERED: *HR* Dextrose 50 % in Water (Syg) 50 ML SYRINGE IVP PRN (22:24)
[2019-03-31] MEDS ORDERED: Ondansetron 4 MG/2 ML VIAL IVP PRN (22:24)
[2019-03-31] MEDS ORDERED: Dextrose Gel 15 GM/37.5 ML TUBE PO PRN ×2 (22:24)
[2019-03-31] MEDS ORDERED: Ondansetron ODT 4 MG TAB.RAPDIS SL PRN (22:24)
[2019-03-31 22:28] LABS: Amphetamine Screen,Urine Negative ng/mL (Cutoff=1000); Barbiturate Screen,Urine Negative ng/mL (Cutoff=200); Benzodiazepines Screen,Urine Negative ng/mL (Cutoff=200); Cannabinoid Screen,Urine Negative ng/mL (Cutoff = 50); Cocaine Screen,Urine Negative ng/mL (Cutoff= 300); Opiate Screen,Urine Positive ng/mL (Cutoff=300); Phencyclidine Screen,Urine Negative ng/mL (Cutoff=25)
[2019-03-31] MEDS ORDERED: 0.9 % Sodium Chloride 1,000 ML IVC SCH (22:30)
[2019-03-31] MEDS ORDERED: *HR* HYDROmorphone 2 MG/ML SYRINGE IVP ONE (22:31)
[2019-03-31 22:38] LABS: Bilirubin,Urine Negative (Negative); Blood,Urine Moderate (Negative); Clarity,Urine Clear (Clear); Color,Urine Yellow (Yellow); Glucose,Urine (UA) 500 mg/dL (Normal); Ketones,Urine 40 mg/dL (Negative); Leukocyte Esterase,Urine Negative (Negative); Nitrite,Urine Negative (Negative); PH,Urine 5.5 pH Units (5.0-8.0); Protein,Urine >=300 mg/dL (Neg-Trace); Specific Gravity,Urine 1.015 (1.010-1.025); Urobilinogen,Urine Normal (Normal)
[2019-03-31 22:54] LABS: Bacteria,Urine Few per hpf (None-Few); Hyaline Casts,Urine None Seen per lpf (None-Few); Squamous Epithelial Cell,Urine Many per lpf (None-Few)
[2019-03-31] MEDS: Insulin LISPRO 300 UNITS/3 ML VIAL SQ SCH (22:54)
[2019-03-31 23:11] LABS: Estimated Average Glucose 395 mg/dl
[2019-04-01] LABS: Protein/Creatinine Ratio,Urine 2.79 mg/mg (0.00-0.20)
[2019-04-01 04:33] LABS: Basophils % 0.4 %; Eosinophils # 0.4 K/mcL (0.0-0.6); Eosinophils % 3.3 %; Immature Granulocytes % 2.7 % (0-4); Immature Reticulocyte % 24.4 % (11.0-38.0); Lymphocytes % 17.9 %; Mean Corpuscular HGB Conc 32.3 g/dL (31.6-35.5); Mean Corpuscular Hemoglobin 29.1 pg (28.0-33.3); Mean Corpuscular Volume 90.1 fL (83.0-100.0); Mean Platelet Volume 10.2 fL (9.4-12.4); Monocytes % 8.8 %; Neutrophils # 7.4 K/mcL (1.6-8.9); Platelet Count 270 K/mcL (140-400); Red Blood Count 3.33 M/mcL (3.82-4.97); Red Cell Distribution Width 12.7 % (11.5-14.5); Retculocyte # 0.09 M/mcL (0.05-0.10); Reticulocyte % 2.9 % (1.6-2.8); Segmented Neutrophils % 66.9 %; White Blood Count 11.1 K/mcL (4.3-11.1)
[2019-04-01 04:36] LABS: Hemoglobin 9.7 g/dL (11.5-15.4)
[2019-04-01 04:42] LABS: INR 1.1; Prothrombin Time 12.1 Seconds (9.4-12.1)
[2019-04-01 04:56] LABS: Albumin 2.5 g/dL (3.5-5.7); Albumin/Globulin Ratio 0.7 (1.1-2.2); Bilirubin,Total 0.2 mg/dL (0.3-1.0); Calcium 8.3 mg/dL (8.6-10.3); Chol/HDL Ratio 3.8 (0-4.9); Globulin 3.8 g/dL (2.4-3.5); Magnesium 1.8 mg/dL (1.6-2.6); Phosphorous 2.9 mg/dL (2.7-4.5); Potassium 3.6 mEq/L (3.5-5.1); Total Protein 6.3 g/dL (6.4-8.9)
[2019-04-01 05:17] LABS: Triiodothyronine (T3) Free 2.74 pg/mL (2.50-3.90)
[2019-04-01 05:22] LABS: Folate > 22.3 ng/mL (3.0-16.0); Vitamin B12 1231 pg/mL (250-1100)
[2019-04-01] MEDS: Insulin LISPRO 300 UNITS/3 ML VIAL SQ SCH ×3 (05:59→17:54)
[2019-04-01] MEDS ORDERED: Cefepime HCl 1,000 MG in 0.9 % Sodium Chloride Mini Bag 100 ML IVPB SCH (06:00)
[2019-04-01] MEDS ORDERED: Gadolinium Contrast Agent (WT Based) IV PRN (08:08)
[2019-04-01] MEDS: Ondansetron ODT 4 MG TAB.RAPDIS PO PRN ×2 (10:11→16:14)
[2019-04-01] MEDS: *HR* Heparin 5,000 UNIT/ML VIAL SQ SCH ×2 (15:11→23:00)
[2019-04-01] MEDS ORDERED: Cefepime HCl 2,000 MG in 0.9 % Sodium Chloride Mini Bag 100 ML IVPB SCH (18:00)
[2019-04-01] MEDS ORDERED: Vancomycin 1,000 MG VIAL ONE (19:51)
[2019-04-01] MEDS ORDERED: Lidocaine -MPF 2% 2 ML VIAL ONE (20:03)
[2019-04-01] MEDS ORDERED: *HR* Propofol 200 MG/20 ML VIAL IVP ONE ×2 (20:03→20:35)
[2019-04-01] MEDS ORDERED: BuPROPion SR (12 HR) 150 MG TABLET PO SCH (21:00)
[2019-04-01] MEDS ORDERED: BuPROPion XL (24 HR) 150 MG TABLET PO SCH (21:00)
[2019-04-01] MEDS ORDERED: Insulin DETEMIR 100 UNIT/ML X5UNITS SQ SCH (21:00)
[2019-04-01] MEDS ORDERED: *HR* LORazepam 2 MG/ML VIAL IVP ONE (22:06)
[2019-04-01] MEDS ORDERED: SUMAtriptan succinate 25 MG TABLET PO ONE (22:07)
[2019-04-01] MEDS ORDERED: Insulin LISPRO 300 UNITS/3 ML VIAL SQ SCH (22:47)
[2019-04-02] MEDS ORDERED: Gadolinium Contrast Agent (WT Based) IV PRN (01:45)
[2019-04-02] MEDS ORDERED: Ondansetron 4 MG/2 ML VIAL IVP PRN (01:45)
[2019-04-02] MEDS ORDERED: Dextrose Gel 15 GM/37.5 ML TUBE PO PRN ×2 (01:45)
[2019-04-02] MEDS ORDERED: D5% in Water 1,000 ML IVC PRN (01:45)
[2019-04-02] MEDS ORDERED: Ondansetron ODT 4 MG TAB.RAPDIS PO PRN (01:45)
[2019-04-02] MEDS ORDERED: SUMAtriptan succinate 25 MG TABLET PO ONE ×2 (01:45→10:06)
[2019-04-02] MEDS ORDERED: *HR* Dextrose 50 % in Water (Syg) 50 ML SYRINGE IVP PRN (01:45)
[2019-04-02] MEDS ORDERED: Naloxone 0.4 MG/ML INJ IVP PRN (01:45)
[2019-04-02] MEDS: Cefepime HCl 2,000 MG in 0.9 % Sodium Chloride Mini Bag 100 ML IVPB SCH ×2 (05:06→17:47)
[2019-04-02] MEDS: *HR* Heparin 5,000 UNIT/ML VIAL SQ SCH ×3 (05:06→22:00)
[2019-04-02] MEDS ORDERED: Insulin LISPRO 300 UNITS/3 ML VIAL SQ SCH ×2 (07:30→21:00)
[2019-04-02] MEDS: Insulin LISPRO 300 UNITS/3 ML VIAL SQ SCH ×3 (08:34→16:35)
[2019-04-02] MEDS: BuPROPion XL (24 HR) 150 MG TABLET PO SCH (08:34)
[2019-04-02 08:52] LABS: Hemoglobin 11.4 g/dL (11.5-15.4); Mean Corpuscular HGB Conc 33.5 g/dL (31.6-35.5); Mean Corpuscular Hemoglobin 29.6 pg (28.0-33.3); Mean Corpuscular Volume 88.3 fL (83.0-100.0); Mean Platelet Volume 9.8 fL (9.4-12.4); Platelet Count 315 K/mcL (140-400); Red Blood Count 3.85 M/mcL (3.82-4.97); White Blood Count 8.9 K/mcL (4.3-11.1)
[2019-04-02] MEDS ORDERED: BuPROPion XL (24 HR) 150 MG TABLET PO SCH (09:00)
[2019-04-02 09:13] LABS: Calcium 8.5 mg/dL (8.6-10.3); Potassium 3.9 mEq/L (3.5-5.1)
[2019-04-02] MEDS ORDERED: 0.9 % Sodium Chloride 500 ML IVC ONE (10:22)
[2019-04-02] MEDS ORDERED: 0.9 % Sodium Chloride 1,000 ML IVC SCH (12:00)
[2019-04-02] MEDS: metroNIDAZOLE 500 MG TABLET PO SCH ×2 (16:35→22:00)
[2019-04-02] MEDS ORDERED: SUMAtriptan succinate 25 MG TABLET PO PRN (17:17)
[2019-04-02] MEDS ORDERED: Insulin DETEMIR 100 UNIT/ML X5UNITS SQ SCH (21:00)
[2019-04-03 04:50] LABS: Hematocrit 28.3 % (35.3-44.9); Mean Corpuscular HGB Conc 32.2 g/dL (31.6-35.5); Mean Corpuscular Hemoglobin 29.1 pg (28.0-33.3); Mean Corpuscular Volume 90.4 fL (83.0-100.0); Mean Platelet Volume 10.1 fL (9.4-12.4); Platelet Count 230 K/mcL (140-400); Red Blood Count 3.13 M/mcL (3.82-4.97); Red Cell Distribution Width 12.9 % (11.5-14.5); White Blood Count 6.9 K/mcL (4.3-11.1)
[2019-04-03 04:52] LABS: Hemoglobin 9.1 g/dL (11.5-15.4)
[2019-04-03 05:09] LABS: Calcium 7.8 mg/dL (8.6-10.3); Potassium 3.7 mEq/L (3.5-5.1)
[2019-04-03] MEDS: *HR* Heparin 5,000 UNIT/ML VIAL SQ SCH ×3 (06:56→23:11)
[2019-04-03] MEDS: Cefepime HCl 2,000 MG in 0.9 % Sodium Chloride Mini Bag 100 ML IVPB SCH (06:56)
[2019-04-03] MEDS: Insulin LISPRO 300 UNITS/3 ML VIAL SQ SCH ×4 (08:11→23:10)
[2019-04-03] MEDS: metroNIDAZOLE 500 MG TABLET PO SCH ×3 (08:12→23:30)
[2019-04-03] MEDS: BuPROPion XL (24 HR) 150 MG TABLET PO SCH (08:12)
[2019-04-03] MEDS ORDERED: 0.9 % Sodium Chloride 500 ML IVC ONE (08:14)
[2019-04-03] MEDS ORDERED: 0.9 % Sodium Chloride 1,000 ML IVC SCH (08:15)
[2019-04-03] MEDS ORDERED: cefTRIAXone 2,000 MG in 0.9 % Sodium Chloride Mini Bag 100 ML IVPB SCH ×2 (10:24→11:00)
[2019-04-03] MEDS ORDERED: cefTRIAXone 2,000 MG in Water for inj. (sterile) 20 ML IVP SCH (11:00)
[2019-04-03] MEDS ORDERED: Aminoglycoside Consult 1 EACH MC ONE (15:38)
[2019-04-03] MEDS ORDERED: Lidocaine 1% 20 ML MDV ONE (17:36)
[2019-04-03] MEDS ORDERED: Propofol 500 MG/50 ML INFUS..BTL ONE (17:43)
[2019-04-03] MEDS ORDERED: Lidocaine -MPF 2% 2 ML VIAL ONE (17:43)
[2019-04-03] MEDS ORDERED: *HR* FentaNYL (PF) 100 MCG/2 ML VIAL ONE (17:46)
[2019-04-03] MEDS ORDERED: *HR* OxyCODONE Immed Rel 5 MG TABLET PO PRN (18:49)
[2019-04-03] MEDS ORDERED: Ondansetron 4 MG/2 ML VIAL ONE (18:51)
[2019-04-03] MEDS ORDERED: *HR* HYDROmorphone (PF) 1 MG/ML SYRINGE IVP PRN (19:09)
[2019-04-03] MEDS ORDERED: Naloxone 0.4 MG/ML INJ IVP PRN (20:16)
[2019-04-03] MEDS ORDERED: Dextrose Gel 15 GM/37.5 ML TUBE PO PRN ×2 (20:16)
[2019-04-03] MEDS ORDERED: D5% in Water 1,000 ML IVC PRN (20:16)
[2019-04-03] MEDS ORDERED: *HR* Dextrose 50 % in Water (Syg) 50 ML SYRINGE IVP PRN (20:16)
[2019-04-03] MEDS ORDERED: SUMAtriptan succinate 25 MG TABLET PO PRN (20:16)
[2019-04-03] MEDS ORDERED: Insulin DETEMIR 100 UNIT/ML X5UNITS SQ SCH ×2 (21:00)
[2019-04-03] MEDS ORDERED: *HR* Promethazine 25 MG/ML VIAL IVP ONE (22:46)
[2019-04-04] MEDS: Ondansetron 4 MG/2 ML VIAL IVP PRN ×2 (05:35→17:06)
[2019-04-04] MEDS: *HR* Heparin 5,000 UNIT/ML VIAL SQ SCH ×3 (05:39→20:40)
[2019-04-04 05:49] LABS: Hematocrit 30.9 % (35.3-44.9); Hemoglobin 10.1 g/dL (11.5-15.4); Mean Corpuscular HGB Conc 32.7 g/dL (31.6-35.5); Mean Corpuscular Hemoglobin 28.5 pg (28.0-33.3); Mean Corpuscular Volume 87.3 fL (83.0-100.0); Mean Platelet Volume 9.8 fL (9.4-12.4); Platelet Count 281 K/mcL (140-400); Red Blood Count 3.54 M/mcL (3.82-4.97); Red Cell Distribution Width 12.7 % (11.5-14.5)
[2019-04-04 06:05] LABS: Calcium 8.1 mg/dL (8.6-10.3); Potassium 4.2 mEq/L (3.5-5.1)
[2019-04-04] MEDS: *HR* Promethazine 25 MG/ML VIAL IVP PRN ×2 (06:07→14:59)
[2019-04-04] MEDS: Insulin LISPRO 300 UNITS/3 ML VIAL SQ SCH ×4 (08:20→20:49)
[2019-04-04] MEDS: cefTRIAXone 2,000 MG in 0.9 % Sodium Chloride Mini Bag 100 ML IVPB SCH (08:20)
[2019-04-04] MEDS: metroNIDAZOLE 500 MG TABLET PO SCH ×3 (08:21→20:39)
[2019-04-04] MEDS: BuPROPion XL (24 HR) 150 MG TABLET PO SCH (08:22)
[2019-04-04] MEDS ORDERED: *HR* Promethazine 25 MG/ML VIAL IVP ONE (08:47)
[2019-04-04] MEDS ORDERED: cefTRIAXone 2,000 MG in Water for inj. (sterile) 20 ML IVP SCH (09:00)
[2019-04-04] MEDS ORDERED: Prochlorperazine 10 MG/2 ML VIAL IVP ONE (09:49)
[2019-04-04] MEDS ORDERED: MetroNIDAZOLE 500 MG/100 ML 500 MG/100 ML BAG IVPB ONE (09:50)
[2019-04-04] MEDS: Insulin DETEMIR 100 UNIT/ML X5UNITS SQ SCH (20:40)
[2019-04-05] MEDS: Ondansetron 4 MG/2 ML VIAL IVP PRN ×3 (01:26→22:21)
[2019-04-05] MEDS: *HR* Promethazine 25 MG/ML VIAL IVP PRN ×3 (04:32→17:58)
[2019-04-05] MEDS: *HR* Heparin 5,000 UNIT/ML VIAL SQ SCH ×3 (04:32→21:46)
[2019-04-05 05:31] LABS: Hematocrit 33.2 % (35.3-44.9); Hemoglobin 10.7 g/dL (11.5-15.4); Mean Corpuscular HGB Conc 32.2 g/dL (31.6-35.5); Mean Corpuscular Hemoglobin 29.2 pg (28.0-33.3); Mean Corpuscular Volume 90.7 fL (83.0-100.0); Mean Platelet Volume 10.6 fL (9.4-12.4); Platelet Count 217 K/mcL (140-400); Red Blood Count 3.66 M/mcL (3.82-4.97); Red Cell Distribution Width 12.8 % (11.5-14.5); White Blood Count 9.1 K/mcL (4.3-11.1)
[2019-04-05 05:48] LABS: Calcium 8.4 mg/dL (8.6-10.3)
[2019-04-05] MEDS: cefTRIAXone 2,000 MG in 0.9 % Sodium Chloride Mini Bag 100 ML IVPB SCH (08:34)
[2019-04-05] MEDS: BuPROPion XL (24 HR) 150 MG TABLET PO SCH (08:35)
[2019-04-05] MEDS: metroNIDAZOLE 500 MG TABLET PO SCH (08:35)
[2019-04-05] MEDS: Insulin LISPRO 300 UNITS/3 ML VIAL SQ SCH ×4 (08:35→21:46)
[2019-04-05] MEDS: Ondansetron ODT 4 MG TAB.RAPDIS PO PRN (08:36)
[2019-04-05] MEDS: MetroNIDAZOLE 500 MG/100 ML 500 MG/100 ML BAG IVPB SCH ×2 (17:51→22:21)
[2019-04-05] MEDS: Insulin DETEMIR 100 UNIT/ML X5UNITS SQ SCH (21:46)
[2019-04-06] MEDS: *HR* Heparin 5,000 UNIT/ML VIAL SQ SCH ×3 (05:08→21:08)
[2019-04-06] MEDS: *HR* Promethazine 25 MG/ML VIAL IVP PRN ×2 (05:09→15:56)
[2019-04-06] MEDS: BuPROPion XL (24 HR) 150 MG TABLET PO SCH (10:18)
[2019-04-06] MEDS: cefTRIAXone 2,000 MG in 0.9 % Sodium Chloride Mini Bag 100 ML IVPB SCH (10:19)
[2019-04-06] MEDS: Ondansetron 4 MG/2 ML VIAL IVP PRN ×2 (10:19→21:08)
[2019-04-06] MEDS: MetroNIDAZOLE 500 MG/100 ML 500 MG/100 ML BAG IVPB SCH ×3 (10:20→23:03)
[2019-04-06] MEDS: Insulin LISPRO 300 UNITS/3 ML VIAL SQ SCH ×4 (10:21→21:09)
[2019-04-06 11:30] LABS: Hematocrit 30.5 % (35.3-44.9); Mean Corpuscular HGB Conc 32.8 g/dL (31.6-35.5); Mean Corpuscular Hemoglobin 28.7 pg (28.0-33.3); Mean Corpuscular Volume 87.4 fL (83.0-100.0); Mean Platelet Volume 9.7 fL (9.4-12.4); Platelet Count 291 K/mcL (140-400); Red Blood Count 3.49 M/mcL (3.82-4.97); Red Cell Distribution Width 12.8 % (11.5-14.5); White Blood Count 8.5 K/mcL (4.3-11.1)
[2019-04-06 11:56] LABS: BUN/Creatinine Ratio 12 (6-26); Blood Urea Nitrogen 12 mg/dL (6-20); Calcium 7.8 mg/dL (8.6-10.3); Carbon Dioxide 24 mEq/L (23-29); Chloride 106 mEq/L (98-107); Glucose 170 mg/dL (70-105); Osmolality,Calculated 286 (280-300); Potassium 3.7 mEq/L (3.5-5.1); Sodium 136 mEq/L (136-145); eGFR For African Americans > 60 (> 60); eGFR For Non-African Americans 58 (> 60)
[2019-04-06] MEDS: Insulin DETEMIR 100 UNIT/ML X5UNITS SQ SCH (21:08)
[2019-04-07 04:44] LABS: Hematocrit 28.7 % (35.3-44.9); Mean Corpuscular HGB Conc 31.4 g/dL (31.6-35.5); Mean Corpuscular Hemoglobin 28.5 pg (28.0-33.3); Mean Corpuscular Volume 90.8 fL (83.0-100.0); Mean Platelet Volume 9.7 fL (9.4-12.4); Platelet Count 266 K/mcL (140-400); Red Blood Count 3.16 M/mcL (3.82-4.97); Red Cell Distribution Width 12.7 % (11.5-14.5); White Blood Count 8.6 K/mcL (4.3-11.1)
[2019-04-07] MEDS: *HR* Heparin 5,000 UNIT/ML VIAL SQ SCH (04:47)
[2019-04-07] MEDS: *HR* Promethazine 25 MG/ML VIAL IVP PRN ×2 (05:02→15:18)
[2019-04-07 05:07] LABS: BUN/Creatinine Ratio 11 (6-26); Blood Urea Nitrogen 11 mg/dL (6-20); Calcium 7.7 mg/dL (8.6-10.3); Carbon Dioxide 26 mEq/L (23-29); Chloride 106 mEq/L (98-107); Glucose 113 mg/dL (70-105); Osmolality,Calculated 284 (280-300); Potassium 3.3 mEq/L (3.5-5.1); Sodium 137 mEq/L (136-145); eGFR For African Americans > 60 (> 60); eGFR For Non-African Americans > 60 (> 60)
[2019-04-07] MEDS: BuPROPion XL (24 HR) 150 MG TABLET PO SCH (09:55)
[2019-04-07] MEDS: Ondansetron ODT 4 MG TAB.RAPDIS PO PRN (09:55)
[2019-04-07] MEDS: cefTRIAXone 2,000 MG in 0.9 % Sodium Chloride Mini Bag 100 ML IVPB SCH (09:55)
[2019-04-07] MEDS: MetroNIDAZOLE 500 MG/100 ML 500 MG/100 ML BAG IVPB SCH (09:56)
[2019-04-07] MEDS: Insulin LISPRO 300 UNITS/3 ML VIAL SQ SCH ×2 (09:56→12:01)
[2019-04-07 10:38] VITALS: BP 162/78
[2019-04-07] MEDS ORDERED: metroNIDAZOLE 500 MG TABLET PO SCH (15:00)
[2019-04-07] MEDS ORDERED: FLU Vac QV 19-20 (6Month+)/PF 0.5 ML SYRINGE IM ONE (15:04)
== END 2019-04-07 15:39 | DRG 622 ==
LOC: EMEROOARM 15:20 → 2ANU 15:20 → SUATTDRO 20:49 → 2ANU 21:38 → SUATTDRO 04-01 15:04
PROVIDERS: ADMIT Internal Medicine; ATTEND Family Medicine

== ENCOUNTER 2020-12-04 10:56 | Inpatient (IN) ==
[2020-12-04] MEDS ORDERED: Naloxone 0.4 MG/ML INJ IVP PRN (15:23)
[2020-12-04] MEDS ORDERED: Ondansetron 4 MG/2 ML VIAL IVP PRN (15:23)
[2020-12-04] MEDS ORDERED: Isovue-370 500 ML BOTTLE IVP ONE (16:02)
[2020-12-04] MEDS ORDERED: 0.9 % Sodium Chloride 1,000 ML IVC SCH (16:15)
[2020-12-04] MEDS ORDERED: D5% in Water 1,000 ML IVC PRN (16:23)
[2020-12-04] MEDS ORDERED: *HR* Dextrose 50 % in Water (Vial) 50 ML VIAL IVP PRN (16:23)
[2020-12-04] MEDS ORDERED: Dextrose Gel 15 GM/37.5 ML TUBE PO PRN ×2 (16:23)
[2020-12-04 17:23] LABS: Basophils % 0.3 %; Eosinophils # 0.1 K/mcL (0.0-0.6); Eosinophils % 1.2 %; Hematocrit 24.4 % (35.3-44.9); Hemoglobin 7.7 g/dL (11.5-15.4); Immature Granulocytes % 0.6 % (0-4); Lymphocytes # 1.7 K/mcL (0.6-4.6); Lymphocytes % 14.8 %; Mean Corpuscular HGB Conc 31.6 g/dL (31.6-35.5); Mean Corpuscular Hemoglobin 27.5 pg (28.0-33.3); Mean Corpuscular Volume 87.1 fL (83.0-100.0); Mean Platelet Volume 9.5 fL (9.4-12.4); Monocytes # 0.9 K/mcL (0.0-1.3); Monocytes % 7.6 %; Neutrophils # 8.5 K/mcL (1.6-8.9); Platelet Count 235 K/mcL (140-400); Red Cell Distribution Width 13.2 % (11.5-14.5); Segmented Neutrophils % 75.5 %; White Blood Count 11.3 K/mcL (4.3-11.1)
[2020-12-04] MEDS: ALPRAZolam 0.5 MG TABLET PO PRN (17:38)
[2020-12-04] MEDS: *HR* Heparin 5,000 UNIT/ML VIAL SQ SCH (17:38)
[2020-12-04] MEDS: Cefepime HCl 1,000 MG in 0.9 % Sodium Chloride Mini Bag 100 ML IVPB SCH (17:39)
[2020-12-04 17:42] LABS: Calcium 8.3 mg/dL (8.6-10.3); Potassium 3.3 mEq/L (3.5-5.1)
[2020-12-04] MEDS: Insulin LISPRO 300 UNITS/3 ML VIAL SUBQ SCH (18:01)
[2020-12-04] MEDS: metroNIDAZOLE 500 MG TABLET PO SCH (19:56)
[2020-12-04] MEDS: Insulin DETEMIR 100 UNIT/ML X5UNITS SUBQ SCH (19:57)
[2020-12-04] MEDS ORDERED: Pregabalin 50 MG CAPSULE PO SCH (21:00)
[2020-12-05] MEDS: Cefepime HCl 1,000 MG in 0.9 % Sodium Chloride Mini Bag 100 ML IVPB SCH ×4 (00:01→23:02)
[2020-12-05] MEDS: Melatonin 3 MG TABLET PO PRN (00:01)
[2020-12-05 06:36] LABS: Basophils % 0.2 %; Eosinophils # 0.3 K/mcL (0.0-0.6); Eosinophils % 2.9 %; Hematocrit 24.6 % (35.3-44.9); Hemoglobin 7.7 g/dL (11.5-15.4); Lymphocytes # 1.5 K/mcL (0.6-4.6); Lymphocytes % 14.9 %; Mean Corpuscular HGB Conc 31.3 g/dL (31.6-35.5); Mean Corpuscular Hemoglobin 27.3 pg (28.0-33.3); Mean Corpuscular Volume 87.2 fL (83.0-100.0); Mean Platelet Volume 9.9 fL (9.4-12.4); Monocytes # 0.7 K/mcL (0.0-1.3); Monocytes % 7.3 %; Neutrophils # 7.4 K/mcL (1.6-8.9); Platelet Count 214 K/mcL (140-400); Red Blood Count 2.82 M/mcL (3.82-4.97); Red Cell Distribution Width 13.3 % (11.5-14.5); Segmented Neutrophils % 73.7 %
[2020-12-05] MEDS: *HR* Heparin 5,000 UNIT/ML VIAL SQ SCH ×2 (06:48→17:14)
[2020-12-05 07:12] LABS: Calcium 7.9 mg/dL (8.6-10.3); Potassium 4.7 mEq/L (3.5-5.1)
[2020-12-05] MEDS: Pregabalin 50 MG CAPSULE PO SCH ×2 (08:23→22:56)
[2020-12-05] MEDS: Insulin LISPRO 300 UNITS/3 ML VIAL SUBQ SCH ×3 (08:23→17:14)
[2020-12-05] MEDS: ALPRAZolam 0.5 MG TABLET PO PRN ×2 (08:23→22:58)
[2020-12-05] MEDS: metroNIDAZOLE 500 MG TABLET PO SCH ×3 (08:24→22:56)
[2020-12-05] MEDS: 0.9 % Sodium Chloride 1,000 ML IVC SCH ×2 (08:24→17:13)
[2020-12-05] MEDS: Insulin DETEMIR 100 UNIT/ML X5UNITS SUBQ SCH (22:56)
[2020-12-06] MEDS: *HR* Heparin 5,000 UNIT/ML VIAL SQ SCH ×2 (06:35→17:21)
[2020-12-06] MEDS: amLODIPine 5 MG TABLET PO SCH (08:34)
[2020-12-06] MEDS: metroNIDAZOLE 500 MG TABLET PO SCH ×3 (08:34→20:00)
[2020-12-06] MEDS: Pregabalin 50 MG CAPSULE PO SCH ×2 (08:34→20:00)
[2020-12-06] MEDS: Cefepime HCl 1,000 MG in 0.9 % Sodium Chloride Mini Bag 100 ML IVPB SCH ×2 (08:35→15:29)
[2020-12-06] MEDS: Insulin LISPRO 300 UNITS/3 ML VIAL SUBQ SCH ×3 (08:39→17:20)
[2020-12-06] MEDS: ALPRAZolam 0.5 MG TABLET PO PRN (08:44)
[2020-12-06] MEDS ORDERED: Morphine Sulfate 2 MG/ML SYRINGE IVP ONE ×2 (09:44→12:00)
[2020-12-06] MEDS: Sennosides/Docusate Sodium TABLET PO SCH ×2 (11:54→20:00)
[2020-12-06] MEDS: polyethylene glycoL 3350 17 GM POWD.PACK PO SCH (11:54)
[2020-12-06] MEDS: Insulin DETEMIR 100 UNIT/ML X5UNITS SUBQ SCH (20:02)
[2020-12-07] MEDS ORDERED: Cefepime HCl 1,000 MG in 0.9 % Sodium Chloride Mini Bag 100 ML IVPB SCH (03:00)
[2020-12-07] MEDS: *HR* Heparin 5,000 UNIT/ML VIAL SQ SCH ×2 (05:58→17:10)
[2020-12-07 08:03] LABS: Hemoglobin 8.1 g/dL (11.5-15.4); Mean Corpuscular HGB Conc 31.2 g/dL (31.6-35.5); Mean Corpuscular Hemoglobin 27.6 pg (28.0-33.3); Mean Corpuscular Volume 88.4 fL (83.0-100.0); Mean Platelet Volume 11.2 fL (9.4-12.4); Platelet Count 195 K/mcL (140-400); Red Blood Count 2.94 M/mcL (3.82-4.97); Red Cell Distribution Width 13.6 % (11.5-14.5)
[2020-12-07 08:14] LABS: Potassium 5.5 mEq/L (3.5-5.1)
[2020-12-07] MEDS: Insulin LISPRO 300 UNITS/3 ML VIAL SUBQ SCH ×3 (11:33→17:10)
[2020-12-07] MEDS: polyethylene glycoL 3350 17 GM POWD.PACK PO SCH (14:05)
[2020-12-07] MEDS: Sennosides/Docusate Sodium TABLET PO SCH ×2 (14:05→20:18)
[2020-12-07] MEDS: amLODIPine 5 MG TABLET PO SCH (14:05)
[2020-12-07] MEDS: metroNIDAZOLE 500 MG TABLET PO SCH ×3 (14:05→20:18)
[2020-12-07] MEDS: Sodium Bicarbonate 75 MEQ in 0.45 % Sodium Chloride 1,000 ML IVC SCH (14:37)
[2020-12-07 14:53] LABS: VBG HCO3 23 mEq/L (21-27); VBG PCO2 47 mmHg (41-51); VBG PO2 213 mmHg (25-50)
[2020-12-07 15:12] LABS: Uric Acid 7.8 mg/dL (2.3-7.6)
[2020-12-07] MEDS: ALPRAZolam 0.5 MG TABLET PO PRN (16:00)
[2020-12-07] MEDS: Insulin DETEMIR 100 UNIT/ML X5UNITS SUBQ SCH (21:09)
[2020-12-08] MEDS: Sodium Bicarbonate 75 MEQ in 0.45 % Sodium Chloride 1,000 ML IVC SCH ×2 (00:27→10:41)
[2020-12-08] MEDS ORDERED: Cefepime HCl 1,000 MG in 0.9 % Sodium Chloride Mini Bag 100 ML IVPB SCH (03:00)
[2020-12-08] MEDS: *HR* Heparin 5,000 UNIT/ML VIAL SQ SCH ×2 (04:45→17:23)
[2020-12-08 05:19] LABS: Hematocrit 23.9 % (35.3-44.9); Hemoglobin 7.1 g/dL (11.5-15.4); Mean Corpuscular HGB Conc 29.7 g/dL (31.6-35.5); Mean Corpuscular Hemoglobin 27.1 pg (28.0-33.3); Mean Corpuscular Volume 91.2 fL (83.0-100.0); Mean Platelet Volume 10.1 fL (9.4-12.4); Platelet Count 236 K/mcL (140-400); Red Blood Count 2.62 M/mcL (3.82-4.97); Red Cell Distribution Width 13.2 % (11.5-14.5); White Blood Count 9.1 K/mcL (4.3-11.1)
[2020-12-08 05:46] LABS: Calcium 7.6 mg/dL (8.6-10.3); Potassium 4.7 mEq/L (3.5-5.1)
[2020-12-08] MEDS: Insulin LISPRO 300 UNITS/3 ML VIAL SUBQ SCH ×3 (07:46→17:25)
[2020-12-08] MEDS: amLODIPine 5 MG TABLET PO SCH (08:01)
[2020-12-08] MEDS: polyethylene glycoL 3350 17 GM POWD.PACK PO SCH (08:02)
[2020-12-08] MEDS: metroNIDAZOLE 500 MG TABLET PO SCH ×3 (08:02→20:25)
[2020-12-08] MEDS: Sennosides/Docusate Sodium TABLET PO SCH ×2 (08:02→20:25)
[2020-12-08] MEDS: Cefepime HCl 1,000 MG in 0.9 % Sodium Chloride Mini Bag 100 ML IVPB SCH (17:22)
[2020-12-08 17:52] LABS: Hematocrit 23.9 % (35.3-44.9); Hemoglobin 7.4 g/dL (11.5-15.4)
[2020-12-08 19:02] LABS: Estimated Average Glucose 226 mg/dl; Hemoglobin A1C 9.5 %
[2020-12-08] MEDS: Insulin DETEMIR 100 UNIT/ML X5UNITS SUBQ SCH (20:37)
[2020-12-08] MEDS ORDERED: 0.9 % Sodium Chloride 250 ML ONE (22:33)
[2020-12-09] MEDS: Sodium Bicarbonate 75 MEQ in 0.45 % Sodium Chloride 1,000 ML IVC SCH ×3 (01:35→21:54)
[2020-12-09] MEDS: *HR* Heparin 5,000 UNIT/ML VIAL SQ SCH (05:09)
[2020-12-09] MEDS: Cefepime HCl 1,000 MG in 0.9 % Sodium Chloride Mini Bag 100 ML IVPB SCH (05:10)
[2020-12-09 06:30] LABS: Hematocrit 28.5 % (35.3-44.9); Mean Corpuscular HGB Conc 31.6 g/dL (31.6-35.5); Mean Corpuscular Hemoglobin 27.9 pg (28.0-33.3); Mean Corpuscular Volume 88.2 fL (83.0-100.0); Platelet Count 250 K/mcL (140-400); Red Blood Count 3.23 M/mcL (3.82-4.97); Red Cell Distribution Width 13.2 % (11.5-14.5); White Blood Count 11.7 K/mcL (4.3-11.1)
[2020-12-09 07:50] LABS: Magnesium 1.6 mg/dL (1.6-2.6); Phosphorous 3.1 mg/dL (2.7-4.5)
[2020-12-09 08:03] LABS: Calcium 8.1 mg/dL (8.6-10.3); Potassium 4.5 mEq/L (3.5-5.1)
[2020-12-09 08:18] LABS: Folate 13.4 ng/mL (3.0-16.0)
[2020-12-09] MEDS: Insulin LISPRO 300 UNITS/3 ML VIAL SUBQ SCH ×3 (09:00→17:24)
[2020-12-09] MEDS: Sennosides/Docusate Sodium TABLET PO SCH ×2 (09:06→21:53)
[2020-12-09] MEDS: polyethylene glycoL 3350 17 GM POWD.PACK PO SCH (09:07)
[2020-12-09] MEDS: amLODIPine 5 MG TABLET PO SCH (09:07)
[2020-12-09] MEDS: metroNIDAZOLE 500 MG TABLET PO SCH (09:08)
[2020-12-09] MEDS: Ertapenem 1,000 MG in 0.9 % Sodium Chloride Mini Bag 100 ML IVPB SCH (12:26)
[2020-12-09] MEDS ORDERED: Vancomycin 1,000 MG, 0.9 % Sodium Chloride 1,000 ML IR ONE (17:35)
[2020-12-09] MEDS ORDERED: *HR* HYDROmorphone PF 0.5 MG/0.5 ML SYRINGE IVP PRN (17:58)
[2020-12-09] MEDS ORDERED: *HR* Midazolam HCl 5 MG/5 ML VIAL IVP ONE (18:20)
[2020-12-09] MEDS: Insulin DETEMIR 100 UNIT/ML X5UNITS SUBQ SCH (21:53)
[2020-12-10] MEDS ORDERED: Acetaminophen IV 1,000 MG/100 ML BAG IVPB ONE (04:05)
[2020-12-10] MEDS ORDERED: *HR* Metoprolol 5 MG/5 ML VIAL IVP ONE ×2 (05:01→20:31)
[2020-12-10 07:04] LABS: Hematocrit 26.5 % (35.3-44.9); Hemoglobin 8.5 g/dL (11.5-15.4); Mean Corpuscular HGB Conc 32.1 g/dL (31.6-35.5); Mean Corpuscular Volume 87.2 fL (83.0-100.0); Mean Platelet Volume 10.8 fL (9.4-12.4); Platelet Count 245 K/mcL (140-400); Red Blood Count 3.04 M/mcL (3.82-4.97); Red Cell Distribution Width 13.2 % (11.5-14.5); White Blood Count 12.4 K/mcL (4.3-11.1)
[2020-12-10 07:18] LABS: Calcium 8.1 mg/dL (8.6-10.3); Potassium 4.1 mEq/L (3.5-5.1)
[2020-12-10] MEDS: Ertapenem 1,000 MG in 0.9 % Sodium Chloride Mini Bag 100 ML IVPB SCH (08:34)
[2020-12-10] MEDS: Sennosides/Docusate Sodium TABLET PO SCH ×2 (08:35→21:15)
[2020-12-10] MEDS: polyethylene glycoL 3350 17 GM POWD.PACK PO SCH (08:35)
[2020-12-10] MEDS: amLODIPine 5 MG TABLET PO SCH (08:36)
[2020-12-10] MEDS: Insulin LISPRO 300 UNITS/3 ML VIAL SUBQ SCH ×3 (08:36→18:47)
[2020-12-10] MEDS: Sodium Bicarbonate 75 MEQ in 0.45 % Sodium Chloride 1,000 ML IVC SCH ×2 (09:14→18:48)
[2020-12-10] MEDS ORDERED: ceFAZolin 2,000 MG in 0.9 % Sodium Chloride 100 ML IVPB ONE (12:24)
[2020-12-10] MEDS ORDERED: CeFAZolin 2,000 MG/120 ML BAG IVPB ONE (12:24)
[2020-12-10] MEDS: Insulin DETEMIR 100 UNIT/ML X5UNITS SUBQ SCH (21:14)
[2020-12-11] MEDS: CeFAZolin 2,000 MG/120 ML BAG IVPB SCH ×4 (00:52→23:10)
[2020-12-11] MEDS: Sodium Bicarbonate 75 MEQ in 0.45 % Sodium Chloride 1,000 ML IVC SCH (00:52)
[2020-12-11 06:33] LABS: Calcium 8.1 mg/dL (8.6-10.3)
[2020-12-11 06:51] LABS: Hematocrit 28.4 % (35.3-44.9); Mean Corpuscular HGB Conc 31.7 g/dL (31.6-35.5); Mean Corpuscular Hemoglobin 27.9 pg (28.0-33.3); Mean Corpuscular Volume 87.9 fL (83.0-100.0); Mean Platelet Volume 10.9 fL (9.4-12.4); Platelet Count 257 K/mcL (140-400); Red Blood Count 3.23 M/mcL (3.82-4.97); Red Cell Distribution Width 13.2 % (11.5-14.5); White Blood Count 11.2 K/mcL (4.3-11.1)
[2020-12-11] MEDS ORDERED: CeFAZolin 2,000 MG/120 ML BAG IVPB SCH (07:00)
[2020-12-11] MEDS: Sennosides/Docusate Sodium TABLET PO SCH ×2 (08:00→21:24)
[2020-12-11] MEDS: polyethylene glycoL 3350 17 GM POWD.PACK PO SCH (08:01)
[2020-12-11] MEDS: Insulin LISPRO 300 UNITS/3 ML VIAL SUBQ SCH ×3 (08:01→16:02)
[2020-12-11] MEDS: amLODIPine 5 MG TABLET PO SCH (08:01)
[2020-12-11] MEDS ORDERED: amLODIPine 5 MG TABLET PO ONE (09:06)
[2020-12-11] MEDS: Melatonin 3 MG TABLET PO PRN (21:24)
[2020-12-11] MEDS: Insulin DETEMIR 100 UNIT/ML X5UNITS SUBQ SCH (21:25)
[2020-12-12] MEDS: amLODIPine 5 MG TABLET PO SCH (09:36)
[2020-12-12] MEDS: polyethylene glycoL 3350 17 GM POWD.PACK PO SCH (09:37)
[2020-12-12] MEDS: Insulin LISPRO 300 UNITS/3 ML VIAL SUBQ SCH ×3 (09:37→18:01)
[2020-12-12] MEDS: Sennosides/Docusate Sodium TABLET PO SCH ×2 (09:37→21:56)
[2020-12-12] MEDS: CeFAZolin 2,000 MG/120 ML BAG IVPB SCH ×3 (09:42→22:09)
[2020-12-12] MEDS: *HR* LORazepam 0.5 MG TABLET PO PRN ×2 (13:53→21:56)
[2020-12-12] MEDS: Melatonin 3 MG TABLET PO PRN (21:56)
[2020-12-12] MEDS: Insulin DETEMIR 100 UNIT/ML X5UNITS SUBQ SCH (21:57)
[2020-12-13 03:26] LABS: Hematocrit 26.7 % (35.3-44.9); Hemoglobin 8.3 g/dL (11.5-15.4); Mean Corpuscular HGB Conc 31.1 g/dL (31.6-35.5); Mean Corpuscular Volume 90.2 fL (83.0-100.0); Mean Platelet Volume 10.2 fL (9.4-12.4); Platelet Count 259 K/mcL (140-400); Red Blood Count 2.96 M/mcL (3.82-4.97); Red Cell Distribution Width 13.2 % (11.5-14.5); White Blood Count 10.1 K/mcL (4.3-11.1)
[2020-12-13 03:44] LABS: Calcium 8.1 mg/dL (8.6-10.3); Potassium 3.8 mEq/L (3.5-5.1)
[2020-12-13] MEDS: Insulin LISPRO 300 UNITS/3 ML VIAL SUBQ SCH ×3 (09:07→17:10)
[2020-12-13] MEDS: CeFAZolin 2,000 MG/120 ML BAG IVPB SCH ×3 (09:10→23:27)
[2020-12-13] MEDS: Sennosides/Docusate Sodium TABLET PO SCH ×2 (09:11→20:00)
[2020-12-13] MEDS: polyethylene glycoL 3350 17 GM POWD.PACK PO SCH (09:11)
[2020-12-13] MEDS: amLODIPine 5 MG TABLET PO SCH (09:11)
[2020-12-13] MEDS: *HR* LORazepam 0.5 MG TABLET PO PRN ×2 (09:11→20:00)
[2020-12-13] MEDS: Fluconazole 150 MG TABLET PO ONE (13:17)
[2020-12-13] MEDS: Insulin DETEMIR 100 UNIT/ML X5UNITS SUBQ SCH (19:59)
[2020-12-13] MEDS: Melatonin 3 MG TABLET PO PRN (21:44)
[2020-12-14] MEDS: Sennosides/Docusate Sodium TABLET PO SCH ×2 (08:09→20:53)
[2020-12-14] MEDS: amLODIPine 5 MG TABLET PO SCH (08:09)
[2020-12-14] MEDS: CeFAZolin 2,000 MG/120 ML BAG IVPB SCH ×3 (08:09→23:02)
[2020-12-14] MEDS: *HR* LORazepam 0.5 MG TABLET PO PRN ×2 (08:11→20:54)
[2020-12-14] MEDS: polyethylene glycoL 3350 17 GM POWD.PACK PO SCH (08:13)
[2020-12-14] MEDS: Insulin LISPRO 300 UNITS/3 ML VIAL SUBQ SCH ×3 (08:15→15:50)
[2020-12-14] MEDS: Melatonin 3 MG TABLET PO PRN (20:53)
[2020-12-14] MEDS: Insulin DETEMIR 100 UNIT/ML X5UNITS SUBQ SCH (20:53)
[2020-12-15] MEDS: Sennosides/Docusate Sodium TABLET PO SCH ×2 (07:45→21:12)
[2020-12-15] MEDS: amLODIPine 5 MG TABLET PO SCH (07:45)
[2020-12-15] MEDS: CeFAZolin 2,000 MG/120 ML BAG IVPB SCH ×3 (07:46→23:44)
[2020-12-15] MEDS: Insulin LISPRO 300 UNITS/3 ML VIAL SUBQ SCH ×3 (10:23→17:16)
[2020-12-15] MEDS: polyethylene glycoL 3350 17 GM POWD.PACK PO SCH (10:34)
[2020-12-15] MEDS: *HR* LORazepam 0.5 MG TABLET PO PRN (21:06)
[2020-12-15] MEDS: Melatonin 3 MG TABLET PO PRN (21:06)
[2020-12-15] MEDS: Insulin DETEMIR 100 UNIT/ML X5UNITS SUBQ SCH (21:20)
[2020-12-16] MEDS: *HR* LORazepam 0.5 MG TABLET PO PRN (05:12)
[2020-12-16 06:51] VITALS: TEMP 98.7
[2020-12-16] MEDS: Insulin LISPRO 300 UNITS/3 ML VIAL SUBQ SCH ×2 (08:46→12:32)
[2020-12-16] MEDS: CeFAZolin 2,000 MG/120 ML BAG IVPB SCH (08:56)
[2020-12-16] MEDS: polyethylene glycoL 3350 17 GM POWD.PACK PO SCH (08:56)
[2020-12-16] MEDS: amLODIPine 5 MG TABLET PO SCH (08:57)
[2020-12-16] MEDS: Sennosides/Docusate Sodium TABLET PO SCH (08:57)
[2020-12-16] MEDS ORDERED: Fluconazole 150 MG TABLET PO ONE (10:17)
[2020-12-16 11:00] VITALS: BP 117/55; PULSE 88; O2SAT 90
[2020-12-16] MEDS: Fluconazole 150 MG TABLET PO ONE (12:30)
== END 2020-12-16 16:37 | DRG 622 ==
LOC: 3NENU → SUATTDRO 15:13
PROVIDERS: ADMIT Internal Medicine; ATTEND Internal Medicine

== ENCOUNTER 2020-12-30 13:36 | Inpatient (IN) ==
[2020-12-30] MEDS ORDERED: Naloxone 0.4 MG/ML INJ IVP PRN (16:41)
[2020-12-30] MEDS ORDERED: Ondansetron ODT 4 MG TAB.RAPDIS SL PRN (16:41)
[2020-12-30] MEDS ORDERED: Vancomycin (wt based) 1,000 MG VIAL IVPB SCH (17:00)
[2020-12-30] MEDS ORDERED: D5% in Water 1,000 ML IVC PRN (17:04)
[2020-12-30] MEDS ORDERED: *HR* Dextrose 50 % in Water (Vial) 50 ML VIAL IVP PRN (17:04)
[2020-12-30] MEDS ORDERED: Dextrose Gel 15 GM/37.5 ML TUBE PO PRN ×2 (17:04)
[2020-12-30] MEDS ORDERED: Insulin LISPRO 300 UNITS/3 ML VIAL SUBQ SCH ×2 (18:00→21:00)
[2020-12-30] MEDS: Insulin LISPRO 300 UNITS/3 ML VIAL SUBQ SCH (18:12)
[2020-12-30] MEDS: Piperacillin/Tazobactam 3.375 GM in 0.9 % Sodium Chloride Mini Bag 100 ML IVPB SCH (23:05)
[2020-12-31 01:20] LABS: Basophils % 0.1 %; Eosinophils # 0.9 K/mcL (0.0-0.6); Eosinophils % 6.9 %; Hematocrit 25.9 % (35.3-44.9); Hemoglobin 8.2 g/dL (11.5-15.4); Immature Granulocytes % 0.6 % (0-4); Lymphocytes # 1.5 K/mcL (0.6-4.6); Lymphocytes % 11.2 %; Mean Corpuscular HGB Conc 31.7 g/dL (31.6-35.5); Mean Corpuscular Hemoglobin 28.3 pg (28.0-33.3); Mean Corpuscular Volume 89.3 fL (83.0-100.0); Mean Platelet Volume 11.4 fL (9.4-12.4); Monocytes # 0.6 K/mcL (0.0-1.3); Monocytes % 4.7 %; Neutrophils # 10.3 K/mcL (1.6-8.9); Platelet Count 182 K/mcL (140-400); Red Cell Distribution Width 13.6 % (11.5-14.5); Segmented Neutrophils % 76.5 %; White Blood Count 13.4 K/mcL (4.3-11.1)
[2020-12-31 01:28] LABS: INR 1.3; Prothrombin Time 14.7 Seconds (9.4-12.1)
[2020-12-31 01:32] LABS: Calcium 7.8 mg/dL (8.6-10.3); Potassium 4.7 mEq/L (3.5-5.1)
[2020-12-31] MEDS: Vancomycin 1,500 MG/265 ML IV.SOLN IVPB SCH (05:28)
[2020-12-31] MEDS: Insulin LISPRO 300 UNITS/3 ML VIAL SUBQ SCH ×4 (08:00→21:03)
[2020-12-31] MEDS: Piperacillin/Tazobactam 3.375 GM in 0.9 % Sodium Chloride Mini Bag 100 ML IVPB SCH ×3 (08:00→23:49)
[2020-12-31] MEDS ORDERED: *HR* OxyCODONE Immed Rel 5 MG TABLET PO PRN (09:41)
[2020-12-31] MEDS ORDERED: *HR* HYDROcodone/Acet 5/325 mg TABLET PO PRN (09:41)
[2020-12-31] MEDS: *HR* Heparin 5,000 UNIT/ML VIAL SQ SCH (18:44)
[2021-01-01] MEDS: Vancomycin 1,500 MG/265 ML IV.SOLN IVPB SCH (03:46)
[2021-01-01 04:17] LABS: Basophils % 0.3 %; Eosinophils # 0.4 K/mcL (0.0-0.6); Eosinophils % 3.6 %; Hematocrit 23.8 % (35.3-44.9); Hemoglobin 7.4 g/dL (11.5-15.4); Immature Granulocytes % 0.8 % (0-4); Lymphocytes # 1.6 K/mcL (0.6-4.6); Lymphocytes % 13.7 %; Mean Corpuscular HGB Conc 31.1 g/dL (31.6-35.5); Mean Corpuscular Hemoglobin 27.4 pg (28.0-33.3); Mean Corpuscular Volume 88.1 fL (83.0-100.0); Mean Platelet Volume 11.5 fL (9.4-12.4); Monocytes # 0.8 K/mcL (0.0-1.3); Monocytes % 6.7 %; Neutrophils # 8.8 K/mcL (1.6-8.9); Platelet Count 181 K/mcL (140-400); Red Cell Distribution Width 13.4 % (11.5-14.5); Segmented Neutrophils % 74.9 %; White Blood Count 11.8 K/mcL (4.3-11.1)
[2021-01-01 04:33] LABS: Potassium 4.3 mEq/L (3.5-5.1)
[2021-01-01] MEDS: *HR* Heparin 5,000 UNIT/ML VIAL SQ SCH ×2 (05:17→16:24)
[2021-01-01] MEDS: Piperacillin/Tazobactam 3.375 GM in 0.9 % Sodium Chloride Mini Bag 100 ML IVPB SCH ×3 (08:44→23:51)
[2021-01-01] MEDS ORDERED: *HR* LORazepam 0.5 MG TABLET PO PRN (10:22)
[2021-01-01] MEDS ORDERED: [UNRECOGNIZED DRUG - OTHER] SQ SCH (10:30)
[2021-01-01] MEDS ORDERED: DULAGLUTIDE 0.75 MG/0.5 ML SQ SCH (10:30)
[2021-01-01] MEDS: Pregabalin 50 MG CAPSULE PO SCH ×2 (11:08→19:40)
[2021-01-01] MEDS: *HR* OxyCODONE Immed Rel 5 MG TABLET PO PRN (11:08)
[2021-01-01 12:42] LABS: Amorphous Sediment,Urine Few per hpf (None-Few); Bilirubin,Urine Negative (Negative); Blood,Urine Moderate (Negative); Clarity,Urine Turbid (Clear); Color,Urine Light-Yellow (Yellow); Glucose,Urine (UA) 200 mg/dL (Normal); Ketones,Urine Negative (Negative); Leukocyte Esterase,Urine Large (Negative); Mucus,Urine Few per lpf (None-Few); Nitrite,Urine Negative (Negative); PH,Urine 6.5 pH Units (5.0-8.0); Protein,Urine >=600 mg/dL (Neg-Trace); RBC,Urine 15-30 per hpf (0-3); Specific Gravity,Urine 1.019 (1.010-1.025); Urobilinogen,Urine Normal (Normal); WBC,Urine TNTC per hpf (0-3)
[2021-01-01 12:45] LABS: Sodium, Urine 82.1 mEq/L
[2021-01-01] MEDS: traZODone 50 MG TABLET PO SCH (19:40)
[2021-01-01] MEDS: Insulin LISPRO 300 UNITS/3 ML VIAL SUBQ SCH (21:25)
[2021-01-02 05:03] LABS: Basophils % 0.2 %; Eosinophils # 0.7 K/mcL (0.0-0.6); Eosinophils % 6.9 %; Hematocrit 23.8 % (35.3-44.9); Hemoglobin 7.3 g/dL (11.5-15.4); Immature Granulocytes % 1.4 % (0-4); Lymphocytes # 2.2 K/mcL (0.6-4.6); Lymphocytes % 20.3 %; Mean Corpuscular HGB Conc 30.7 g/dL (31.6-35.5); Mean Corpuscular Hemoglobin 27.4 pg (28.0-33.3); Mean Corpuscular Volume 89.5 fL (83.0-100.0); Mean Platelet Volume 11.5 fL (9.4-12.4); Monocytes # 0.9 K/mcL (0.0-1.3); Monocytes % 8.1 %; Neutrophils # 6.7 K/mcL (1.6-8.9); Platelet Count 196 K/mcL (140-400); Red Blood Count 2.66 M/mcL (3.82-4.97); Red Cell Distribution Width 13.8 % (11.5-14.5); Segmented Neutrophils % 63.1 %; White Blood Count 10.6 K/mcL (4.3-11.1)
[2021-01-02] MEDS: *HR* Heparin 5,000 UNIT/ML VIAL SQ SCH ×2 (05:12→16:18)
[2021-01-02 05:20] LABS: Potassium 4.3 mEq/L (3.5-5.1)
[2021-01-02] MEDS: Pregabalin 50 MG CAPSULE PO SCH ×2 (07:50→20:23)
[2021-01-02] MEDS: Piperacillin/Tazobactam 3.375 GM in 0.9 % Sodium Chloride Mini Bag 100 ML IVPB SCH ×3 (07:50→22:54)
[2021-01-02] MEDS ORDERED: Fluconazole 150 MG TABLET PO ONE (14:09)
[2021-01-02] MEDS: *HR* OxyCODONE Immed Rel 5 MG TABLET PO PRN (15:07)
[2021-01-02] MEDS: traZODone 50 MG TABLET PO SCH (20:23)
[2021-01-02] MEDS: Insulin LISPRO 300 UNITS/3 ML VIAL SUBQ SCH (21:02)
[2021-01-03] MEDS: *HR* OxyCODONE Immed Rel 5 MG TABLET PO PRN ×2 (03:29→13:32)
[2021-01-03] MEDS: *HR* Heparin 5,000 UNIT/ML VIAL SQ SCH (05:27)
[2021-01-03 06:08] LABS: Basophils % 0.2 %; Eosinophils # 0.7 K/mcL (0.0-0.6); Eosinophils % 7.1 %; Hematocrit 21.8 % (35.3-44.9); Hemoglobin 6.6 g/dL (11.5-15.4); Immature Granulocytes % 1.2 % (0-4); Lymphocytes # 2.3 K/mcL (0.6-4.6); Lymphocytes % 23.9 %; Mean Corpuscular HGB Conc 30.3 g/dL (31.6-35.5); Mean Corpuscular Hemoglobin 27.3 pg (28.0-33.3); Mean Corpuscular Volume 90.1 fL (83.0-100.0); Mean Platelet Volume 11.4 fL (9.4-12.4); Monocytes % 9.7 %; Neutrophils # 5.7 K/mcL (1.6-8.9); Platelet Count 190 K/mcL (140-400); Red Blood Count 2.42 M/mcL (3.82-4.97); Red Cell Distribution Width 13.6 % (11.5-14.5); Segmented Neutrophils % 57.9 %; White Blood Count 9.8 K/mcL (4.3-11.1)
[2021-01-03 06:20] LABS: Calcium 7.7 mg/dL (8.6-10.3); Potassium 4.5 mEq/L (3.5-5.1)
[2021-01-03] MEDS: Piperacillin/Tazobactam 3.375 GM in 0.9 % Sodium Chloride Mini Bag 100 ML IVPB SCH (06:24)
[2021-01-03] MEDS ORDERED: 0.9 % Sodium Chloride 250 ML IVC SCH (07:30)
[2021-01-03] MEDS: Pregabalin 50 MG CAPSULE PO SCH ×2 (09:40→19:52)
[2021-01-03] MEDS: Insulin LISPRO 300 UNITS/3 ML VIAL SUBQ SCH ×2 (16:35→19:53)
[2021-01-03] MEDS: Cefdinir 300 MG CAPSULE PO SCH (19:52)
[2021-01-03] MEDS: traZODone 50 MG TABLET PO SCH (19:52)
[2021-01-03 21:02] LABS: Hematocrit 24.4 % (35.3-44.9); Hemoglobin 7.7 g/dL (11.5-15.4)
[2021-01-04 04:24] LABS: Hematocrit 24.8 % (35.3-44.9); Hemoglobin 7.8 g/dL (11.5-15.4); Mean Corpuscular HGB Conc 31.5 g/dL (31.6-35.5); Mean Corpuscular Hemoglobin 28.4 pg (28.0-33.3); Mean Corpuscular Volume 90.2 fL (83.0-100.0); Platelet Count 222 K/mcL (140-400); Red Blood Count 2.75 M/mcL (3.82-4.97); Red Cell Distribution Width 14.3 % (11.5-14.5); White Blood Count 11.4 K/mcL (4.3-11.1)
[2021-01-04 04:41] LABS: Calcium 7.9 mg/dL (8.6-10.3); Potassium 4.8 mEq/L (3.5-5.1)
[2021-01-04] MEDS: Insulin LISPRO 300 UNITS/3 ML VIAL SUBQ SCH ×4 (07:36→19:51)
[2021-01-04] MEDS: Cefdinir 300 MG CAPSULE PO SCH ×2 (07:37→19:50)
[2021-01-04] MEDS: Pregabalin 50 MG CAPSULE PO SCH ×2 (07:37→19:50)
[2021-01-04 11:44] LABS: Adenovirus Not Detected (Not Detect); Bordetella Pertussis Not Detected (Not Detect); Chlamydophila pneumoniae Not Detected (Not Detect); Coronavirus 229E Not Detected (Not Detect); Coronavirus HKU1 Not Detected (Not Detect); Coronavirus NL63 Not Detected (Not Detect); Coronavirus OC43 Not Detected (Not Detect); Human Metapneumovirus Not Detected (Not Detect); Human Rhinovirus/Enterovirus Not Detected (Not Detect); Influenza A Subtype 2009 H1 Not Detected (Not Detect); Influenza B Not Detected (Not Detect); Mycoplasma pneumoniae Not Detected (Not Detect); Parainfluenza Virus 1 Not Detected (Not Detect); Parainfluenza Virus 2 Not Detected (Not Detect); Parainfluenza Virus 3 Not Detected (Not Detect); Parainfluenza Virus 4 Not Detected (Not Detect); Respiratory Syncytial Virus Not Detected (Not Detect); SARS-CoV-2 Not Detected (Not Detect)
[2021-01-04] MEDS: *HR* OxyCODONE Immed Rel 5 MG TABLET PO PRN (14:35)
[2021-01-04] MEDS ORDERED: hydrALAZINE 10 MG TABLET PO PRN (17:56)
[2021-01-04] MEDS: traZODone 50 MG TABLET PO SCH (19:50)
[2021-01-05] MEDS: Cefdinir 300 MG CAPSULE PO SCH ×2 (07:56→20:42)
[2021-01-05] MEDS: Pregabalin 50 MG CAPSULE PO SCH ×2 (07:56→20:43)
[2021-01-05] MEDS: Insulin LISPRO 300 UNITS/3 ML VIAL SUBQ SCH ×4 (07:56→20:43)
[2021-01-05] MEDS: *HR* OxyCODONE Immed Rel 5 MG TABLET PO PRN (08:16)
[2021-01-05] MEDS ORDERED: Lidocaine -MPF 2% 5 ML VIAL ONE (09:13)
[2021-01-05 14:41] LABS: Hematocrit 27.3 % (35.3-44.9); Hemoglobin 8.8 g/dL (11.5-15.4); Mean Corpuscular HGB Conc 32.2 g/dL (31.6-35.5); Mean Corpuscular Hemoglobin 28.6 pg (28.0-33.3); Mean Corpuscular Volume 88.6 fL (83.0-100.0); Mean Platelet Volume 10.6 fL (9.4-12.4); Platelet Count 268 K/mcL (140-400); Red Blood Count 3.08 M/mcL (3.82-4.97); Red Cell Distribution Width 13.7 % (11.5-14.5); White Blood Count 12.8 K/mcL (4.3-11.1)
[2021-01-05 15:02] LABS: Calcium 8.4 mg/dL (8.6-10.3); Potassium 4.4 mEq/L (3.5-5.1)
[2021-01-05] MEDS ORDERED: *HR* Labetalol 20 MG/4 ML SYRINGE IVP STA (15:44)
[2021-01-05] MEDS: traZODone 50 MG TABLET PO SCH (20:43)
[2021-01-06 03:35] LABS: Hematocrit 24.6 % (35.3-44.9); Hemoglobin 7.7 g/dL (11.5-15.4); Mean Corpuscular HGB Conc 31.3 g/dL (31.6-35.5); Mean Corpuscular Hemoglobin 28.1 pg (28.0-33.3); Mean Corpuscular Volume 89.8 fL (83.0-100.0); Platelet Count 262 K/mcL (140-400); Red Blood Count 2.74 M/mcL (3.82-4.97); Red Cell Distribution Width 13.7 % (11.5-14.5); White Blood Count 12.3 K/mcL (4.3-11.1)
[2021-01-06 03:57] LABS: Calcium 7.9 mg/dL (8.6-10.3); Magnesium 1.3 mg/dL (1.6-2.6); Potassium 4.5 mEq/L (3.5-5.1)
[2021-01-06] MEDS: Pregabalin 50 MG CAPSULE PO SCH ×2 (07:21→20:35)
[2021-01-06] MEDS: Insulin LISPRO 300 UNITS/3 ML VIAL SUBQ SCH ×4 (07:21→20:34)
[2021-01-06] MEDS: Cefdinir 300 MG CAPSULE PO SCH ×2 (07:21→20:34)
[2021-01-06] MEDS: *HR* OxyCODONE Immed Rel 5 MG TABLET PO PRN ×2 (10:44→18:58)
[2021-01-06] MEDS: NIFEdipine XL (24 HR) 30 MG TAB.ER.24 PO SCH (11:40)
[2021-01-06] MEDS: traZODone 50 MG TABLET PO SCH (20:34)
[2021-01-07 04:09] LABS: Magnesium 1.6 mg/dL (1.6-2.6); Phosphorous 4.2 mg/dL (2.7-4.5); Potassium 4.4 mEq/L (3.5-5.1)
[2021-01-07 04:18] LABS: Hematocrit 23.6 % (35.3-44.9); Hemoglobin 7.5 g/dL (11.5-15.4); Mean Corpuscular HGB Conc 31.8 g/dL (31.6-35.5); Mean Corpuscular Hemoglobin 28.4 pg (28.0-33.3); Mean Corpuscular Volume 89.4 fL (83.0-100.0); Mean Platelet Volume 10.9 fL (9.4-12.4); Platelet Count 271 K/mcL (140-400); Red Blood Count 2.64 M/mcL (3.82-4.97); Red Cell Distribution Width 13.6 % (11.5-14.5); White Blood Count 12.7 K/mcL (4.3-11.1)
[2021-01-07] MEDS: Insulin LISPRO 300 UNITS/3 ML VIAL SUBQ SCH ×4 (07:20→22:11)
[2021-01-07] MEDS: Cefdinir 300 MG CAPSULE PO SCH ×2 (07:27→21:27)
[2021-01-07] MEDS: Pregabalin 50 MG CAPSULE PO SCH ×2 (07:27→21:27)
[2021-01-07] MEDS: NIFEdipine XL (24 HR) 30 MG TAB.ER.24 PO SCH (07:27)
[2021-01-07] MEDS: *HR* OxyCODONE Immed Rel 5 MG TABLET PO PRN (15:57)
[2021-01-07] MEDS: traZODone 50 MG TABLET PO SCH (21:27)
[2021-01-08 03:37] LABS: Hematocrit 22.6 % (35.3-44.9); Hemoglobin 7.2 g/dL (11.5-15.4); Mean Corpuscular HGB Conc 31.9 g/dL (31.6-35.5); Mean Corpuscular Hemoglobin 28.3 pg (28.0-33.3); Mean Platelet Volume 10.9 fL (9.4-12.4); Platelet Count 254 K/mcL (140-400); Red Blood Count 2.54 M/mcL (3.82-4.97); Red Cell Distribution Width 13.3 % (11.5-14.5); White Blood Count 10.6 K/mcL (4.3-11.1)
[2021-01-08 03:53] LABS: Magnesium 1.6 mg/dL (1.6-2.6); Phosphorous 4.3 mg/dL (2.7-4.5); Potassium 4.7 mEq/L (3.5-5.1)
[2021-01-08] MEDS: Cefdinir 300 MG CAPSULE PO SCH ×2 (07:58→21:28)
[2021-01-08] MEDS: Insulin LISPRO 300 UNITS/3 ML VIAL SUBQ SCH ×4 (07:58→21:40)
[2021-01-08] MEDS: Pregabalin 50 MG CAPSULE PO SCH ×2 (07:59→21:27)
[2021-01-08] MEDS: NIFEdipine XL (24 HR) 30 MG TAB.ER.24 PO SCH (07:59)
[2021-01-08] MEDS: *HR* OxyCODONE Immed Rel 5 MG TABLET PO PRN (08:01)
[2021-01-08] MEDS: Ringers Solution, Lactated 1,000 ML IVC SCH (11:53)
[2021-01-08 15:15] LABS: Hematocrit 23.5 % (35.3-44.9); Hemoglobin 7.5 g/dL (11.5-15.4); Mean Corpuscular HGB Conc 31.9 g/dL (31.6-35.5); Mean Corpuscular Hemoglobin 28.3 pg (28.0-33.3); Mean Corpuscular Volume 88.7 fL (83.0-100.0); Mean Platelet Volume 10.6 fL (9.4-12.4); Platelet Count 272 K/mcL (140-400); Red Blood Count 2.65 M/mcL (3.82-4.97); Red Cell Distribution Width 13.6 % (11.5-14.5); White Blood Count 12.9 K/mcL (4.3-11.1)
[2021-01-08] MEDS: traZODone 50 MG TABLET PO SCH (21:28)
[2021-01-09] MEDS: Ringers Solution, Lactated 1,000 ML IVC SCH ×2 (04:32→12:46)
[2021-01-09 04:55] LABS: Hematocrit 24.8 % (35.3-44.9); Hemoglobin 7.6 g/dL (11.5-15.4); Mean Corpuscular HGB Conc 30.6 g/dL (31.6-35.5); Mean Corpuscular Hemoglobin 27.6 pg (28.0-33.3); Mean Corpuscular Volume 90.2 fL (83.0-100.0); Mean Platelet Volume 10.8 fL (9.4-12.4); Platelet Count 298 K/mcL (140-400); Red Blood Count 2.75 M/mcL (3.82-4.97); Red Cell Distribution Width 13.6 % (11.5-14.5); White Blood Count 13.6 K/mcL (4.3-11.1)
[2021-01-09 05:10] LABS: Calcium 8.2 mg/dL (8.6-10.3); Magnesium 1.6 mg/dL (1.6-2.6); Phosphorous 4.3 mg/dL (2.7-4.5); Potassium 4.7 mEq/L (3.5-5.1)
[2021-01-09 05:11] LABS: Chol/HDL Ratio 3.7 (0-4.9)
[2021-01-09] MEDS: NIFEdipine XL (24 HR) 30 MG TAB.ER.24 PO SCH (08:48)
[2021-01-09] MEDS: Pregabalin 50 MG CAPSULE PO SCH ×2 (08:49→20:15)
[2021-01-09] MEDS: Insulin LISPRO 300 UNITS/3 ML VIAL SUBQ SCH ×4 (08:49→21:38)
[2021-01-09] MEDS: 0.9 % Sodium Chloride 1,000 ML IVC SCH (18:38)
[2021-01-09 18:53] LABS: Amorphous Sediment,Urine Few per hpf (None-Few); Bilirubin,Urine Negative (Negative); Blood,Urine Moderate (Negative); Calcium Oxalate Crystals,Urine Present per hpf; Clarity,Urine Ex.Turbid (Clear); Color,Urine Yellow (Yellow); Glucose,Urine (UA) 70 mg/dL (Normal); Ketones,Urine Negative (Negative); Leukocyte Esterase,Urine Large (Negative); Nitrite,Urine Negative (Negative); PH,Urine 6.5 pH Units (5.0-8.0); Protein,Urine >=300 mg/dL (Neg-Trace); RBC,Urine 30-50 per hpf (0-3); Specific Gravity,Urine 1.012 (1.010-1.025); Urobilinogen,Urine Normal (Normal); WBC,Urine TNTC per hpf (0-3)
[2021-01-09 19:22] LABS: Creatinine,Urine 50 mg/dL; Microalbumin,Urine > 1350 mg/L; Protein/Creatinine Ratio,Urine 11.86 mg/mg (0.00-0.20); Sodium, Urine 89.1 mEq/L
[2021-01-09] MEDS: traZODone 50 MG TABLET PO SCH (20:15)
[2021-01-10] MEDS: 0.9 % Sodium Chloride 1,000 ML IVC SCH ×2 (04:53→15:23)
[2021-01-10 05:30] LABS: Hemoglobin 7.6 g/dL (11.5-15.4); Mean Corpuscular HGB Conc 31.7 g/dL (31.6-35.5); Mean Corpuscular Hemoglobin 28.3 pg (28.0-33.3); Mean Corpuscular Volume 89.2 fL (83.0-100.0); Mean Platelet Volume 10.8 fL (9.4-12.4); Platelet Count 289 K/mcL (140-400); Red Blood Count 2.69 M/mcL (3.82-4.97); Red Cell Distribution Width 13.6 % (11.5-14.5); White Blood Count 13.6 K/mcL (4.3-11.1)
[2021-01-10 05:49] LABS: Calcium 8.1 mg/dL (8.6-10.3); Magnesium 1.8 mg/dL (1.6-2.6); Phosphorous 4.7 mg/dL (2.7-4.5); Potassium 4.5 mEq/L (3.5-5.1)
[2021-01-10 06:04] LABS: Hepatitis B Surface Antigen Nonreactive (Nonreactive)
[2021-01-10 06:32] LABS: Hepatitis B Core IgM Nonreactive (Nonreactive)
[2021-01-10 06:33] LABS: Hepatitis C Virus Antibody Nonreactive (Nonreactive)
[2021-01-10 06:34] LABS: Hepatitis A Antibody IgM Nonreactive (Nonreactive)
[2021-01-10] MEDS: Insulin LISPRO 300 UNITS/3 ML VIAL SUBQ SCH ×4 (08:40→20:22)
[2021-01-10] MEDS: NIFEdipine XL (24 HR) 30 MG TAB.ER.24 PO SCH (08:41)
[2021-01-10] MEDS: Pregabalin 50 MG CAPSULE PO SCH ×2 (08:41→20:21)
[2021-01-10] MEDS: *HR* OxyCODONE Immed Rel 5 MG TABLET PO PRN (15:24)
[2021-01-10] MEDS: traZODone 50 MG TABLET PO SCH (20:21)
[2021-01-10] MEDS: hydrOXYzine pamoate 25 MG CAPSULE PO PRN (20:26)
[2021-01-11] MEDS: 0.9 % Sodium Chloride 1,000 ML IVC SCH ×2 (01:41→11:24)
[2021-01-11] MEDS: Pregabalin 50 MG CAPSULE PO SCH ×2 (07:36→21:04)
[2021-01-11] MEDS: NIFEdipine XL (24 HR) 30 MG TAB.ER.24 PO SCH (07:36)
[2021-01-11] MEDS: Insulin LISPRO 300 UNITS/3 ML VIAL SUBQ SCH ×4 (07:37→21:06)
[2021-01-11 07:52] LABS: Hematocrit 23.6 % (35.3-44.9); Hemoglobin 7.4 g/dL (11.5-15.4); Mean Corpuscular HGB Conc 31.4 g/dL (31.6-35.5); Mean Corpuscular Hemoglobin 28.1 pg (28.0-33.3); Mean Corpuscular Volume 89.7 fL (83.0-100.0); Mean Platelet Volume 11.1 fL (9.4-12.4); Platelet Count 303 K/mcL (140-400); Red Blood Count 2.63 M/mcL (3.82-4.97); Red Cell Distribution Width 13.6 % (11.5-14.5); White Blood Count 14.2 K/mcL (4.3-11.1)
[2021-01-11 07:59] LABS: Calcium 7.9 mg/dL (8.6-10.3); Potassium 4.5 mEq/L (3.5-5.1)
[2021-01-11 13:31] LABS: Adenovirus F 40/41 PCR Not detected (Not detect); Astrovirus PCR Not detected (Not detect); C.difficile Toxin A/B Gene PCR Not detected (Not detect); Campylobacter by PCR Not detected (Not detect); Cryptosporidium by PCR Not detected (Not detect); Cyclospora cayetanensis PCR Not detected (Not detect); E. coli O157 by PCR Not detected (Not detect); Entamoeba histolytica PCR Not detected (Not detect); Enteroaggregative E.coli(EAEC) Not detected (Not detect); Enteropathogenic E.coli(EPEC) Not detected (Not detect); Enterotoxigenic E.coli (ETEC) Not detected (Not detect); Giardia lamblia PCR Not detected (Not detect); Norovirus GI/GII PCR Not detected (Not detect); Plesiomonas shigelloides PCR Not detected (Not detect); Rotavirus A PCR Not detected (Not detect); Salmonella PCR Not detected (Not detect); Sapovirus PCR Not detected (Not detect); Shig/EnteroinvasiveE coli EIEC Not detected (Not detect); Shigalike tox-prod E coli STEC Not detected (Not detect); Vibrio PCR Not detected (Not detect); Vibrio cholerae PCR Not detected (Not detect); Yersinia enterocolitica PCR Not detected (Not detect)
[2021-01-11] MEDS: traZODone 50 MG TABLET PO SCH (21:05)
[2021-01-12] MEDS: 0.9 % Sodium Chloride 1,000 ML IVC SCH ×2 (00:04→11:05)
[2021-01-12 01:33] LABS: Hematocrit 22.8 % (35.3-44.9); Hemoglobin 7.1 g/dL (11.5-15.4); Mean Corpuscular HGB Conc 31.1 g/dL (31.6-35.5); Mean Corpuscular Hemoglobin 27.4 pg (28.0-33.3); Mean Platelet Volume 10.4 fL (9.4-12.4); Platelet Count 288 K/mcL (140-400); Red Blood Count 2.59 M/mcL (3.82-4.97); Red Cell Distribution Width 13.6 % (11.5-14.5); White Blood Count 14.1 K/mcL (4.3-11.1)
[2021-01-12 01:53] LABS: Calcium 7.8 mg/dL (8.6-10.3); Potassium 4.4 mEq/L (3.5-5.1)
[2021-01-12] MEDS: Pregabalin 50 MG CAPSULE PO SCH ×2 (08:29→21:10)
[2021-01-12] MEDS: NIFEdipine XL (24 HR) 30 MG TAB.ER.24 PO SCH (08:29)
[2021-01-12] MEDS: Insulin LISPRO 300 UNITS/3 ML VIAL SUBQ SCH ×4 (08:30→21:10)
[2021-01-12 12:50] LABS: % Iron Saturation 13 % (15-50); Iron 19 mcg/dL (50-170); Transferrin 101 mg/dL (203-362)
[2021-01-12 13:09] LABS: Folate 6.6 ng/mL (3.0-16.0)
[2021-01-12 14:33] LABS: Hematocrit 24.8 % (35.3-44.9); Hemoglobin 7.6 g/dL (11.5-15.4); Mean Corpuscular HGB Conc 30.6 g/dL (31.6-35.5); Mean Corpuscular Hemoglobin 27.6 pg (28.0-33.3); Mean Corpuscular Volume 90.2 fL (83.0-100.0); Mean Platelet Volume 10.6 fL (9.4-12.4); Platelet Count 314 K/mcL (140-400); Red Blood Count 2.75 M/mcL (3.82-4.97); Red Cell Distribution Width 13.7 % (11.5-14.5); White Blood Count 13.6 K/mcL (4.3-11.1)
[2021-01-12] MEDS: traZODone 50 MG TABLET PO SCH (21:10)
[2021-01-13 04:33] LABS: Hematocrit 22.3 % (35.3-44.9); Hemoglobin 7.1 g/dL (11.5-15.4); Mean Corpuscular HGB Conc 31.8 g/dL (31.6-35.5); Mean Corpuscular Hemoglobin 28.3 pg (28.0-33.3); Mean Corpuscular Volume 88.8 fL (83.0-100.0); Mean Platelet Volume 10.4 fL (9.4-12.4); Platelet Count 294 K/mcL (140-400); Red Blood Count 2.51 M/mcL (3.82-4.97); Red Cell Distribution Width 13.8 % (11.5-14.5); White Blood Count 12.7 K/mcL (4.3-11.1)
[2021-01-13 04:52] LABS: Calcium 7.9 mg/dL (8.6-10.3); Potassium 4.4 mEq/L (3.5-5.1)
[2021-01-13] MEDS: Pregabalin 50 MG CAPSULE PO SCH ×2 (07:55→21:44)
[2021-01-13] MEDS: Insulin LISPRO 300 UNITS/3 ML VIAL SUBQ SCH ×4 (07:55→21:49)
[2021-01-13] MEDS: NIFEdipine XL (24 HR) 30 MG TAB.ER.24 PO SCH (07:55)
[2021-01-13] MEDS: *HR* OxyCODONE Immed Rel 5 MG TABLET PO PRN (21:44)
[2021-01-13] MEDS: traZODone 50 MG TABLET PO SCH (21:45)
[2021-01-13] MEDS: hydrOXYzine pamoate 25 MG CAPSULE PO PRN (22:50)
[2021-01-14 00:43] LABS: Bilirubin,Urine Negative (Negative); Blood,Urine Moderate (Negative); Clarity,Urine Ex.Turbid (Clear); Color,Urine Yellow (Yellow); Glucose,Urine (UA) 200 mg/dL (Normal); Ketones,Urine Negative (Negative); Leukocyte Esterase,Urine Large (Negative); Nitrite,Urine Negative (Negative); Protein,Urine >=300 mg/dL (Neg-Trace); RBC,Urine 15-30 per hpf (0-3); Urobilinogen,Urine Normal (Normal); WBC,Urine TNTC per hpf (0-3)
[2021-01-14 04:37] LABS: Hematocrit 22.6 % (35.3-44.9); Hemoglobin 6.9 g/dL (11.5-15.4); Mean Corpuscular HGB Conc 30.5 g/dL (31.6-35.5); Mean Corpuscular Hemoglobin 27.6 pg (28.0-33.3); Mean Corpuscular Volume 90.4 fL (83.0-100.0); Mean Platelet Volume 10.5 fL (9.4-12.4); Platelet Count 298 K/mcL (140-400); Red Cell Distribution Width 13.7 % (11.5-14.5); White Blood Count 10.9 K/mcL (4.3-11.1)
[2021-01-14 04:50] LABS: Calcium 7.9 mg/dL (8.6-10.3); Potassium 4.3 mEq/L (3.5-5.1)
[2021-01-14] MEDS: Pregabalin 50 MG CAPSULE PO SCH (07:56)
[2021-01-14] MEDS: Insulin LISPRO 300 UNITS/3 ML VIAL SUBQ SCH ×4 (07:56→21:12)
[2021-01-14] MEDS: NIFEdipine XL (24 HR) 30 MG TAB.ER.24 PO SCH (07:57)
[2021-01-14] MEDS ORDERED: 0.9 % Sodium Chloride 250 ML ONE (13:55)
[2021-01-14] MEDS ORDERED: Furosemide 20 MG/2 ML VIAL IVP ONE (16:44)
[2021-01-14 18:49] LABS: Hematocrit 27.7 % (35.3-44.9); Hemoglobin 8.7 g/dL (11.5-15.4)
[2021-01-14] MEDS: *HR* OxyCODONE Immed Rel 5 MG TABLET PO PRN (19:45)
[2021-01-14] MEDS: traZODone 50 MG TABLET PO SCH (21:13)
[2021-01-15 05:45] LABS: Hematocrit 24.9 % (35.3-44.9); Hemoglobin 7.9 g/dL (11.5-15.4); Mean Corpuscular HGB Conc 31.7 g/dL (31.6-35.5); Mean Corpuscular Hemoglobin 28.6 pg (28.0-33.3); Mean Corpuscular Volume 90.2 fL (83.0-100.0); Mean Platelet Volume 10.4 fL (9.4-12.4); Platelet Count 309 K/mcL (140-400); Red Blood Count 2.76 M/mcL (3.82-4.97); White Blood Count 11.6 K/mcL (4.3-11.1)
[2021-01-15 06:05] LABS: Calcium 8.2 mg/dL (8.6-10.3); Potassium 4.7 mEq/L (3.5-5.1)
[2021-01-15] MEDS: Insulin LISPRO 300 UNITS/3 ML VIAL SUBQ SCH ×4 (07:45→21:57)
[2021-01-15] MEDS: Pregabalin 50 MG CAPSULE PO SCH (08:52)
[2021-01-15] MEDS: NIFEdipine XL (24 HR) 30 MG TAB.ER.24 PO SCH (08:53)
[2021-01-15] MEDS: *HR* OxyCODONE Immed Rel 5 MG TABLET PO PRN (08:56)
[2021-01-15] MEDS ORDERED: Furosemide 20 MG/2 ML VIAL IVP SCH (09:00)
[2021-01-15] MEDS: traZODone 50 MG TABLET PO SCH (22:12)
[2021-01-16] MEDS: Insulin LISPRO 300 UNITS/3 ML VIAL SUBQ SCH ×4 (07:41→21:19)
[2021-01-16] MEDS: NIFEdipine XL (24 HR) 30 MG TAB.ER.24 PO SCH (09:45)
[2021-01-16] MEDS: Pregabalin 50 MG CAPSULE PO SCH (09:45)
[2021-01-16 10:32] LABS: Hematocrit 26.1 % (35.3-44.9); Hemoglobin 8.6 g/dL (11.5-15.4); Mean Corpuscular Hemoglobin 29.7 pg (28.0-33.3); Mean Platelet Volume 10.4 fL (9.4-12.4); Platelet Count 300 K/mcL (140-400); White Blood Count 11.1 K/mcL (4.3-11.1)
[2021-01-16 10:48] LABS: Calcium 8.5 mg/dL (8.6-10.3); Potassium 4.6 mEq/L (3.5-5.1)
[2021-01-16] MEDS: traZODone 50 MG TABLET PO SCH (19:50)
[2021-01-16] MEDS: *HR* OxyCODONE Immed Rel 5 MG TABLET PO PRN (19:54)
[2021-01-16] MEDS: Melatonin 3 MG TABLET PO PRN (19:54)
[2021-01-17 02:28] LABS: Hematocrit 25.3 % (35.3-44.9); Hemoglobin 8.1 g/dL (11.5-15.4); Mean Corpuscular Hemoglobin 28.5 pg (28.0-33.3); Mean Corpuscular Volume 89.1 fL (83.0-100.0); Mean Platelet Volume 10.6 fL (9.4-12.4); Platelet Count 300 K/mcL (140-400); Red Blood Count 2.84 M/mcL (3.82-4.97); Red Cell Distribution Width 13.6 % (11.5-14.5); White Blood Count 10.2 K/mcL (4.3-11.1)
[2021-01-17 02:43] LABS: Calcium 8.3 mg/dL (8.6-10.3); Potassium 4.6 mEq/L (3.5-5.1)
[2021-01-17] MEDS: Insulin LISPRO 300 UNITS/3 ML VIAL SUBQ SCH ×4 (07:26→20:17)
[2021-01-17] MEDS: NIFEdipine XL (24 HR) 30 MG TAB.ER.24 PO SCH (09:49)
[2021-01-17] MEDS: Pregabalin 50 MG CAPSULE PO SCH (09:49)
[2021-01-17] MEDS: *HR* OxyCODONE Immed Rel 5 MG TABLET PO PRN (20:16)
[2021-01-17] MEDS: traZODone 50 MG TABLET PO SCH (20:17)
[2021-01-18 01:03] LABS: Hematocrit 26.2 % (35.3-44.9); Hemoglobin 8.4 g/dL (11.5-15.4); Mean Corpuscular HGB Conc 32.1 g/dL (31.6-35.5); Mean Corpuscular Hemoglobin 28.5 pg (28.0-33.3); Mean Corpuscular Volume 88.8 fL (83.0-100.0); Mean Platelet Volume 10.3 fL (9.4-12.4); Platelet Count 290 K/mcL (140-400); Red Blood Count 2.95 M/mcL (3.82-4.97); Red Cell Distribution Width 13.6 % (11.5-14.5); White Blood Count 11.2 K/mcL (4.3-11.1)
[2021-01-18 01:22] LABS: Calcium 8.5 mg/dL (8.6-10.3); Potassium 4.6 mEq/L (3.5-5.1)
[2021-01-18] MEDS: NIFEdipine XL (24 HR) 30 MG TAB.ER.24 PO SCH (08:19)
[2021-01-18] MEDS: Pregabalin 50 MG CAPSULE PO SCH (08:19)
[2021-01-18] MEDS: Insulin LISPRO 300 UNITS/3 ML VIAL SUBQ SCH ×4 (08:22→21:25)
[2021-01-18] MEDS: *HR* OxyCODONE Immed Rel 5 MG TABLET PO PRN ×2 (10:25→21:30)
[2021-01-18] MEDS: traZODone 50 MG TABLET PO SCH (21:24)
[2021-01-19 01:45] LABS: Hematocrit 26.2 % (35.3-44.9); Hemoglobin 8.3 g/dL (11.5-15.4); Mean Corpuscular HGB Conc 31.7 g/dL (31.6-35.5); Mean Corpuscular Hemoglobin 28.4 pg (28.0-33.3); Mean Corpuscular Volume 89.7 fL (83.0-100.0); Mean Platelet Volume 10.8 fL (9.4-12.4); Platelet Count 284 K/mcL (140-400); Red Blood Count 2.92 M/mcL (3.82-4.97); Red Cell Distribution Width 13.5 % (11.5-14.5); White Blood Count 11.8 K/mcL (4.3-11.1)
[2021-01-19 02:18] LABS: Calcium 8.5 mg/dL (8.6-10.3); Potassium 4.8 mEq/L (3.5-5.1)
[2021-01-19] MEDS: Insulin LISPRO 300 UNITS/3 ML VIAL SUBQ SCH ×4 (07:23→21:03)
[2021-01-19] MEDS: NIFEdipine XL (24 HR) 30 MG TAB.ER.24 PO SCH (07:42)
[2021-01-19] MEDS: Pregabalin 50 MG CAPSULE PO SCH (07:42)
[2021-01-19] MEDS: *HR* OxyCODONE Immed Rel 5 MG TABLET PO PRN ×2 (13:50→20:12)
[2021-01-19] MEDS: traZODone 50 MG TABLET PO SCH (20:12)
[2021-01-20 03:29] LABS: Basophils # 0.1 K/mcL (0.0-0.2); Basophils % 0.4 %; Eosinophils # 0.6 K/mcL (0.0-0.6); Eosinophils % 4.8 %; Hematocrit 25.2 % (35.3-44.9); Immature Granulocytes % 1.6 % (0-4); Lymphocytes # 2.5 K/mcL (0.6-4.6); Lymphocytes % 21.6 %; Mean Corpuscular HGB Conc 31.7 g/dL (31.6-35.5); Mean Corpuscular Hemoglobin 28.5 pg (28.0-33.3); Mean Corpuscular Volume 89.7 fL (83.0-100.0); Mean Platelet Volume 10.5 fL (9.4-12.4); Monocytes # 0.8 K/mcL (0.0-1.3); Monocytes % 6.9 %; Neutrophils # 7.6 K/mcL (1.6-8.9); Platelet Count 265 K/mcL (140-400); Red Blood Count 2.81 M/mcL (3.82-4.97); Red Cell Distribution Width 13.6 % (11.5-14.5); Segmented Neutrophils % 64.7 %; White Blood Count 11.8 K/mcL (4.3-11.1)
[2021-01-20 03:48] LABS: Calcium 8.3 mg/dL (8.6-10.3); Potassium 4.9 mEq/L (3.5-5.1)
[2021-01-20] MEDS: Insulin LISPRO 300 UNITS/3 ML VIAL SUBQ SCH ×4 (08:21→20:30)
[2021-01-20] MEDS: Pregabalin 50 MG CAPSULE PO SCH (09:39)
[2021-01-20] MEDS: NIFEdipine XL (24 HR) 30 MG TAB.ER.24 PO SCH (09:39)
[2021-01-20] MEDS: *HR* OxyCODONE Immed Rel 5 MG TABLET PO PRN (09:52)
[2021-01-20] MEDS: traZODone 50 MG TABLET PO SCH (20:28)
[2021-01-20] MEDS: Melatonin 3 MG TABLET PO PRN (20:28)
[2021-01-21] MEDS: Insulin LISPRO 300 UNITS/3 ML VIAL SUBQ SCH ×4 (07:39→19:40)
[2021-01-21] MEDS: NIFEdipine XL (24 HR) 30 MG TAB.ER.24 PO SCH (08:40)
[2021-01-21] MEDS: Pregabalin 50 MG CAPSULE PO SCH (08:40)
[2021-01-21] MEDS: *HR* OxyCODONE Immed Rel 5 MG TABLET PO PRN ×2 (14:15→20:32)
[2021-01-21] MEDS: traZODone 50 MG TABLET PO SCH (19:39)
[2021-01-21] MEDS: Melatonin 3 MG TABLET PO PRN (19:39)
[2021-01-21] MEDS: hydrOXYzine pamoate 25 MG CAPSULE PO PRN (19:42)
[2021-01-22] MEDS: NIFEdipine XL (24 HR) 30 MG TAB.ER.24 PO SCH (09:02)
[2021-01-22] MEDS: Insulin LISPRO 300 UNITS/3 ML VIAL SUBQ SCH ×4 (09:03→21:24)
[2021-01-22] MEDS: Pregabalin 50 MG CAPSULE PO SCH (09:03)
[2021-01-22] MEDS: traZODone 50 MG TABLET PO SCH (21:26)
[2021-01-22] MEDS: *HR* OxyCODONE Immed Rel 5 MG TABLET PO PRN (21:31)
[2021-01-23] MEDS: NIFEdipine XL (24 HR) 30 MG TAB.ER.24 PO SCH (08:05)
[2021-01-23] MEDS: Pregabalin 50 MG CAPSULE PO SCH (08:06)
[2021-01-23] MEDS: Insulin LISPRO 300 UNITS/3 ML VIAL SUBQ SCH ×4 (08:06→22:24)
[2021-01-23] MEDS: traZODone 50 MG TABLET PO SCH (22:30)
[2021-01-23] MEDS: *HR* OxyCODONE Immed Rel 5 MG TABLET PO PRN (22:33)
[2021-01-24] MEDS: Insulin LISPRO 300 UNITS/3 ML VIAL SUBQ SCH ×4 (10:25→20:13)
[2021-01-24] MEDS: Pregabalin 50 MG CAPSULE PO SCH (11:25)
[2021-01-24] MEDS: NIFEdipine XL (24 HR) 30 MG TAB.ER.24 PO SCH (11:25)
[2021-01-24] MEDS: *HR* OxyCODONE Immed Rel 5 MG TABLET PO PRN ×2 (11:28→20:11)
[2021-01-24] MEDS: hydrOXYzine pamoate 25 MG CAPSULE PO PRN (20:12)
[2021-01-24] MEDS: traZODone 50 MG TABLET PO SCH (20:12)
[2021-01-24] MEDS: Melatonin 3 MG TABLET PO PRN (20:12)
[2021-01-25 07:13] LABS: Hematocrit 26.1 % (35.3-44.9); Hemoglobin 8.1 g/dL (11.5-15.4)
[2021-01-25] MEDS: Insulin LISPRO 300 UNITS/3 ML VIAL SUBQ SCH ×4 (10:08→21:26)
[2021-01-25] MEDS: *HR* OxyCODONE Immed Rel 5 MG TABLET PO PRN (10:14)
[2021-01-25] MEDS: Pregabalin 50 MG CAPSULE PO SCH (10:14)
[2021-01-25] MEDS: NIFEdipine XL (24 HR) 30 MG TAB.ER.24 PO SCH (10:14)
[2021-01-25] MEDS: traZODone 50 MG TABLET PO SCH (21:30)
[2021-01-26] MEDS: NIFEdipine XL (24 HR) 30 MG TAB.ER.24 PO SCH (07:50)
[2021-01-26] MEDS: Pregabalin 50 MG CAPSULE PO SCH (07:50)
[2021-01-26] MEDS: Insulin LISPRO 300 UNITS/3 ML VIAL SUBQ SCH ×4 (07:56→21:13)
[2021-01-26] MEDS: traZODone 50 MG TABLET PO SCH (21:08)
[2021-01-26] MEDS: Melatonin 3 MG TABLET PO PRN (21:11)
[2021-01-26] MEDS: *HR* OxyCODONE Immed Rel 5 MG TABLET PO PRN (21:11)
[2021-01-27] MEDS: Insulin LISPRO 300 UNITS/3 ML VIAL SUBQ SCH ×4 (08:10→21:27)
[2021-01-27] MEDS: NIFEdipine XL (24 HR) 30 MG TAB.ER.24 PO SCH (09:08)
[2021-01-27] MEDS: Pregabalin 50 MG CAPSULE PO SCH ×2 (09:09→21:26)
[2021-01-27] MEDS: *HR* OxyCODONE Immed Rel 5 MG TABLET PO PRN ×2 (12:28→21:26)
[2021-01-27] MEDS: traZODone 50 MG TABLET PO SCH (21:25)
[2021-01-28] MEDS: *HR* OxyCODONE Immed Rel 5 MG TABLET PO PRN ×2 (05:53→22:53)
[2021-01-28] MEDS: Insulin LISPRO 300 UNITS/3 ML VIAL SUBQ SCH ×4 (11:34→23:12)
[2021-01-28] MEDS: Pregabalin 50 MG CAPSULE PO SCH ×2 (19:28→22:52)
[2021-01-28] MEDS: NIFEdipine XL (24 HR) 30 MG TAB.ER.24 PO SCH (19:28)
[2021-01-28] MEDS: traZODone 50 MG TABLET PO SCH (22:53)
[2021-01-29] MEDS: *HR* OxyCODONE Immed Rel 5 MG TABLET PO PRN (06:51)
[2021-01-29] MEDS: Insulin LISPRO 300 UNITS/3 ML VIAL SUBQ SCH ×4 (08:40→20:34)
[2021-01-29] MEDS: NIFEdipine XL (24 HR) 30 MG TAB.ER.24 PO SCH (10:50)
[2021-01-29] MEDS: Pregabalin 50 MG CAPSULE PO SCH ×2 (10:51→20:23)
[2021-01-29] MEDS: traZODone 50 MG TABLET PO SCH (20:26)
[2021-01-30 05:46] LABS: Basophils % 0.4 %; Eosinophils # 0.5 K/mcL (0.0-0.6); Eosinophils % 6.1 %; Hematocrit 24.4 % (35.3-44.9); Hemoglobin 7.6 g/dL (11.5-15.4); Immature Granulocytes % 0.6 % (0-4); Lymphocytes # 2.1 K/mcL (0.6-4.6); Lymphocytes % 25.3 %; Mean Corpuscular HGB Conc 31.1 g/dL (31.6-35.5); Mean Corpuscular Hemoglobin 27.6 pg (28.0-33.3); Mean Corpuscular Volume 88.7 fL (83.0-100.0); Monocytes # 0.8 K/mcL (0.0-1.3); Monocytes % 9.4 %; Neutrophils # 4.8 K/mcL (1.6-8.9); Platelet Count 226 K/mcL (140-400); Red Blood Count 2.75 M/mcL (3.82-4.97); Red Cell Distribution Width 13.7 % (11.5-14.5); Segmented Neutrophils % 58.2 %; White Blood Count 8.2 K/mcL (4.3-11.1)
[2021-01-30] MEDS: Acetaminophen 325 MG TABLET PO PRN ×2 (06:03→19:45)
[2021-01-30] MEDS: NIFEdipine XL (24 HR) 30 MG TAB.ER.24 PO SCH (08:28)
[2021-01-30] MEDS: Pregabalin 50 MG CAPSULE PO SCH ×2 (08:28→19:45)
[2021-01-30] MEDS: Insulin LISPRO 300 UNITS/3 ML VIAL SUBQ SCH ×4 (08:34→19:53)
[2021-01-30] MEDS: *HR* OxyCODONE Immed Rel 5 MG TABLET PO PRN ×2 (15:24→21:53)
[2021-01-30] MEDS: traZODone 50 MG TABLET PO SCH (19:45)
[2021-01-31] MEDS: Insulin LISPRO 300 UNITS/3 ML VIAL SUBQ SCH ×4 (08:06→20:44)
[2021-01-31] MEDS: Acetaminophen 325 MG TABLET PO PRN (08:13)
[2021-01-31] MEDS: NIFEdipine XL (24 HR) 30 MG TAB.ER.24 PO SCH (08:13)
[2021-01-31] MEDS: Pregabalin 50 MG CAPSULE PO SCH ×2 (08:14→20:32)
[2021-01-31] MEDS: traZODone 50 MG TABLET PO SCH (20:32)
[2021-01-31] MEDS: *HR* OxyCODONE Immed Rel 5 MG TABLET PO PRN (20:38)
[2021-01-31] MEDS: Melatonin 3 MG TABLET PO PRN (23:58)
[2021-02-01 01:51] LABS: Basophils % 0.4 %; Eosinophils # 0.6 K/mcL (0.0-0.6); Eosinophils % 6.5 %; Hematocrit 25.3 % (35.3-44.9); Immature Granulocytes % 0.7 % (0-4); Lymphocytes # 1.9 K/mcL (0.6-4.6); Lymphocytes % 22.9 %; Mean Corpuscular HGB Conc 31.6 g/dL (31.6-35.5); Mean Corpuscular Volume 88.5 fL (83.0-100.0); Mean Platelet Volume 10.7 fL (9.4-12.4); Monocytes # 0.7 K/mcL (0.0-1.3); Monocytes % 8.8 %; Neutrophils # 5.1 K/mcL (1.6-8.9); Platelet Count 235 K/mcL (140-400); Red Blood Count 2.86 M/mcL (3.82-4.97); Red Cell Distribution Width 13.7 % (11.5-14.5); Segmented Neutrophils % 60.7 %; White Blood Count 8.4 K/mcL (4.3-11.1)
[2021-02-01 02:00] LABS: Calcium 8.1 mg/dL (8.6-10.3); Potassium 4.1 mEq/L (3.5-5.1)
[2021-02-01] MEDS: Insulin LISPRO 300 UNITS/3 ML VIAL SUBQ SCH ×4 (08:35→20:47)
[2021-02-01] MEDS: NIFEdipine XL (24 HR) 30 MG TAB.ER.24 PO SCH (08:41)
[2021-02-01] MEDS: Pregabalin 50 MG CAPSULE PO SCH ×2 (08:41→20:36)
[2021-02-01] MEDS: *HR* OxyCODONE Immed Rel 5 MG TABLET PO PRN (20:36)
[2021-02-01] MEDS: traZODone 50 MG TABLET PO SCH (20:37)
[2021-02-02] MEDS: Pregabalin 50 MG CAPSULE PO SCH ×2 (08:49→20:37)
[2021-02-02] MEDS: NIFEdipine XL (24 HR) 30 MG TAB.ER.24 PO SCH (08:49)
[2021-02-02] MEDS: Insulin LISPRO 300 UNITS/3 ML VIAL SUBQ SCH ×4 (08:50→20:41)
[2021-02-02] MEDS: *HR* OxyCODONE Immed Rel 5 MG TABLET PO PRN ×2 (09:05→16:00)
[2021-02-02] MEDS: traZODone 50 MG TABLET PO SCH (20:37)
[2021-02-02] MEDS: BuPROPion XL (24 HR) 150 MG TABLET PO SCH (20:40)
[2021-02-03] MEDS: Insulin LISPRO 300 UNITS/3 ML VIAL SUBQ SCH ×4 (08:22→20:45)
[2021-02-03] MEDS: BuPROPion XL (24 HR) 150 MG TABLET PO SCH (08:38)
[2021-02-03] MEDS: NIFEdipine XL (24 HR) 30 MG TAB.ER.24 PO SCH (08:38)
[2021-02-03] MEDS: Pregabalin 50 MG CAPSULE PO SCH ×2 (08:38→20:41)
[2021-02-03] MEDS: traZODone 50 MG TABLET PO SCH (20:41)
[2021-02-03] MEDS: *HR* OxyCODONE Immed Rel 5 MG TABLET PO PRN (20:44)
[2021-02-04] MEDS: Insulin LISPRO 300 UNITS/3 ML VIAL SUBQ SCH ×4 (10:20→20:37)
[2021-02-04] MEDS: Pregabalin 50 MG CAPSULE PO SCH ×2 (10:21→20:34)
[2021-02-04] MEDS: NIFEdipine XL (24 HR) 30 MG TAB.ER.24 PO SCH (10:21)
[2021-02-04] MEDS: BuPROPion XL (24 HR) 150 MG TABLET PO SCH (10:22)
[2021-02-04] MEDS: *HR* OxyCODONE Immed Rel 5 MG TABLET PO PRN (10:26)
[2021-02-04] MEDS: traZODone 50 MG TABLET PO SCH (20:34)
[2021-02-05] MEDS: Insulin LISPRO 300 UNITS/3 ML VIAL SUBQ SCH ×4 (07:41→20:52)
[2021-02-05] MEDS: BuPROPion XL (24 HR) 150 MG TABLET PO SCH (08:22)
[2021-02-05] MEDS: Pregabalin 50 MG CAPSULE PO SCH ×2 (08:22→20:50)
[2021-02-05] MEDS: NIFEdipine XL (24 HR) 30 MG TAB.ER.24 PO SCH (08:22)
[2021-02-05] MEDS: traZODone 50 MG TABLET PO SCH (20:50)
[2021-02-06] MEDS: hydrOXYzine pamoate 25 MG CAPSULE PO PRN (01:19)
[2021-02-06] MEDS: NIFEdipine XL (24 HR) 30 MG TAB.ER.24 PO SCH (07:51)
[2021-02-06] MEDS: Insulin LISPRO 300 UNITS/3 ML VIAL SUBQ SCH ×4 (07:51→21:46)
[2021-02-06] MEDS: Pregabalin 50 MG CAPSULE PO SCH ×2 (07:51→21:45)
[2021-02-06] MEDS: BuPROPion XL (24 HR) 150 MG TABLET PO SCH (07:51)
[2021-02-06] MEDS: traZODone 50 MG TABLET PO SCH (21:45)
[2021-02-07] MEDS: hydrOXYzine pamoate 25 MG CAPSULE PO PRN (03:36)
[2021-02-07] MEDS: Melatonin 3 MG TABLET PO PRN (03:36)
[2021-02-07] MEDS: Pregabalin 50 MG CAPSULE PO SCH ×2 (07:37→20:55)
[2021-02-07] MEDS: BuPROPion XL (24 HR) 150 MG TABLET PO SCH (07:38)
[2021-02-07] MEDS: NIFEdipine XL (24 HR) 30 MG TAB.ER.24 PO SCH (07:38)
[2021-02-07] MEDS: Insulin LISPRO 300 UNITS/3 ML VIAL SUBQ SCH ×4 (08:58→21:23)
[2021-02-07] MEDS: *HR* OxyCODONE Immed Rel 5 MG TABLET PO PRN (20:55)
[2021-02-07] MEDS: traZODone 50 MG TABLET PO SCH (20:56)
[2021-02-08] MEDS: Pregabalin 50 MG CAPSULE PO SCH ×2 (08:30→21:31)
[2021-02-08] MEDS: BuPROPion XL (24 HR) 150 MG TABLET PO SCH (08:30)
[2021-02-08] MEDS: NIFEdipine XL (24 HR) 30 MG TAB.ER.24 PO SCH (08:30)
[2021-02-08] MEDS: Insulin LISPRO 300 UNITS/3 ML VIAL SUBQ SCH ×4 (08:44→21:27)
[2021-02-08] MEDS: traZODone 50 MG TABLET PO SCH (21:31)
[2021-02-09] MEDS: Insulin LISPRO 300 UNITS/3 ML VIAL SUBQ SCH ×4 (09:31→22:40)
[2021-02-09] MEDS: BuPROPion XL (24 HR) 150 MG TABLET PO SCH (10:18)
[2021-02-09] MEDS: Pregabalin 50 MG CAPSULE PO SCH ×2 (10:18→23:39)
[2021-02-09] MEDS: NIFEdipine XL (24 HR) 30 MG TAB.ER.24 PO SCH (10:19)
[2021-02-09] MEDS ORDERED: Isovue-370 500 ML BOTTLE IVP ONE (11:35)
[2021-02-09 12:57] LABS: Adenovirus Not Detected (Not Detect); Bordetella Pertussis Not Detected (Not Detect); Chlamydophila pneumoniae Not Detected (Not Detect); Coronavirus 229E Not Detected (Not Detect); Coronavirus HKU1 Not Detected (Not Detect); Coronavirus NL63 Not Detected (Not Detect); Coronavirus OC43 Not Detected (Not Detect); Human Metapneumovirus Not Detected (Not Detect); Human Rhinovirus/Enterovirus Not Detected (Not Detect); Influenza A Subtype 2009 H1 Not Detected (Not Detect); Influenza B Not Detected (Not Detect); Mycoplasma pneumoniae Not Detected (Not Detect); Parainfluenza Virus 1 Not Detected (Not Detect); Parainfluenza Virus 2 Not Detected (Not Detect); Parainfluenza Virus 3 Not Detected (Not Detect); Parainfluenza Virus 4 Not Detected (Not Detect); Respiratory Syncytial Virus Not Detected (Not Detect)
[2021-02-09 12:59] LABS: SARS-CoV-2 DETECTED (Not Detect)
[2021-02-09] MEDS ORDERED: Furosemide 40 MG/4 ML VIAL IVP ONE ×2 (13:33→18:15)
[2021-02-09] MEDS ORDERED: Furosemide 20 MG/2 ML VIAL IVP ONE ×2 (13:33→18:15)
[2021-02-09] MEDS ORDERED: *HR* LORazepam 2 MG/ML VIAL IVP ONE (16:16)
[2021-02-09] MEDS ORDERED: Acetaminophen IV 1,000 MG/100 ML BAG IVPB ONE (18:04)
[2021-02-09 19:09] LABS: Basophils % 0.2 %; Hematocrit 26.7 % (35.3-44.9); Hemoglobin 8.4 g/dL (11.5-15.4); Immature Granulocytes % 0.7 % (0-4); Lymphocytes # 1.2 K/mcL (0.6-4.6); Mean Corpuscular HGB Conc 31.5 g/dL (31.6-35.5); Mean Corpuscular Hemoglobin 27.6 pg (28.0-33.3); Mean Corpuscular Volume 87.8 fL (83.0-100.0); Mean Platelet Volume 11.1 fL (9.4-12.4); Monocytes # 0.8 K/mcL (0.0-1.3); Monocytes % 13.3 %; Neutrophils # 3.9 K/mcL (1.6-8.9); Platelet Count 179 K/mcL (140-400); Red Blood Count 3.04 M/mcL (3.82-4.97); Red Cell Distribution Width 13.2 % (11.5-14.5); Segmented Neutrophils % 65.8 %
[2021-02-09 19:21] LABS: Calcium 7.9 mg/dL (8.6-10.3); Potassium 3.8 mEq/L (3.5-5.1)
[2021-02-09] MEDS: *HR* Enoxaparin 40 MG/0.4 ML SYRINGE SQ SCH (22:39)
[2021-02-09] MEDS: traZODone 50 MG TABLET PO SCH (23:38)
[2021-02-10] MEDS: *HR* Enoxaparin 40 MG/0.4 ML SYRINGE SQ SCH (06:15)
[2021-02-10] MEDS: Insulin LISPRO 300 UNITS/3 ML VIAL SUBQ SCH ×4 (07:51→21:29)
[2021-02-10] MEDS: Pantoprazole 40 MG VIAL IVP SCH (08:54)
[2021-02-10] MEDS: BuPROPion XL (24 HR) 150 MG TABLET PO SCH (09:24)
[2021-02-10] MEDS: NIFEdipine XL (24 HR) 30 MG TAB.ER.24 PO SCH (09:24)
[2021-02-10] MEDS: Pregabalin 50 MG CAPSULE PO SCH ×2 (09:24→21:28)
[2021-02-10] MEDS ORDERED: Acetaminophen IV 1,000 MG/100 ML BAG IVPB ONE (11:35)
[2021-02-10] MEDS: traZODone 50 MG TABLET PO SCH (21:27)
[2021-02-10] MEDS: Melatonin 3 MG TABLET PO PRN (21:27)
[2021-02-10] MEDS: hydrOXYzine pamoate 25 MG CAPSULE PO PRN (21:34)
[2021-02-10] MEDS: *HR* OxyCODONE Immed Rel 5 MG TABLET PO PRN (21:34)
[2021-02-11] MEDS: Acetaminophen 325 MG TABLET PO PRN (04:20)
[2021-02-11] MEDS: *HR* Enoxaparin 40 MG/0.4 ML SYRINGE SQ SCH (06:01)
[2021-02-11] MEDS: NIFEdipine XL (24 HR) 30 MG TAB.ER.24 PO SCH (08:24)
[2021-02-11] MEDS: Pregabalin 50 MG CAPSULE PO SCH ×2 (08:24→22:42)
[2021-02-11] MEDS: BuPROPion XL (24 HR) 150 MG TABLET PO SCH (08:24)
[2021-02-11] MEDS: Pantoprazole 40 MG VIAL IVP SCH (08:25)
[2021-02-11] MEDS: Insulin LISPRO 300 UNITS/3 ML VIAL SUBQ SCH ×4 (08:26→21:03)
[2021-02-11 18:18] LABS: Basophils % 0.2 %; Hemoglobin 8.3 g/dL (11.5-15.4); Immature Granulocytes % 0.6 % (0-4); Lymphocytes # 0.7 K/mcL (0.6-4.6); Lymphocytes % 12.8 %; Mean Corpuscular HGB Conc 31.9 g/dL (31.6-35.5); Mean Corpuscular Hemoglobin 27.5 pg (28.0-33.3); Mean Corpuscular Volume 86.1 fL (83.0-100.0); Mean Platelet Volume 11.3 fL (9.4-12.4); Monocytes # 0.2 K/mcL (0.0-1.3); Monocytes % 4.4 %; Neutrophils # 4.3 K/mcL (1.6-8.9); Platelet Count 158 K/mcL (140-400); Red Blood Count 3.02 M/mcL (3.82-4.97); Red Cell Distribution Width 13.4 % (11.5-14.5); White Blood Count 5.3 K/mcL (4.3-11.1)
[2021-02-11 18:27] LABS: Fibrinogen 459 mg/dL (169-393)
[2021-02-11 18:33] LABS: D-Dimer 1091 ng/mLFEU (0-500)
[2021-02-11 18:35] LABS: Calcium 7.6 mg/dL (8.6-10.3); Potassium 4.1 mEq/L (3.5-5.1)
[2021-02-11] MEDS: hydrOXYzine pamoate 25 MG CAPSULE PO PRN (22:42)
[2021-02-11] MEDS: traZODone 50 MG TABLET PO SCH (22:42)
[2021-02-11] MEDS: Melatonin 3 MG TABLET PO PRN (22:43)
[2021-02-12] MEDS: *HR* OxyCODONE Immed Rel 5 MG TABLET PO PRN (04:31)
[2021-02-12] MEDS: *HR* Enoxaparin 40 MG/0.4 ML SYRINGE SQ SCH (04:31)
[2021-02-12] MEDS: hydrOXYzine pamoate 25 MG CAPSULE PO PRN (04:43)
[2021-02-12 05:19] LABS: Hematocrit 26.8 % (35.3-44.9); Hemoglobin 8.7 g/dL (11.5-15.4); Immature Granulocytes % 0.4 % (0-4); Lymphocytes % 19.2 %; Mean Corpuscular HGB Conc 32.5 g/dL (31.6-35.5); Mean Corpuscular Hemoglobin 27.6 pg (28.0-33.3); Mean Corpuscular Volume 85.1 fL (83.0-100.0); Mean Platelet Volume 11.7 fL (9.4-12.4); Monocytes # 0.3 K/mcL (0.0-1.3); Monocytes % 4.9 %; Neutrophils # 3.8 K/mcL (1.6-8.9); Platelet Count 170 K/mcL (140-400); Red Blood Count 3.15 M/mcL (3.82-4.97); Red Cell Distribution Width 13.6 % (11.5-14.5); Segmented Neutrophils % 75.5 %; White Blood Count 5.1 K/mcL (4.3-11.1)
[2021-02-12 05:33] LABS: Albumin 2.4 g/dL (3.5-5.7); Albumin/Globulin Ratio 0.6 (1.1-2.2); Bilirubin,Direct 0.1 mg/dL (0.0-0.2); Bilirubin,Indirect 0.1 mg/dL (0.0-1.0); Bilirubin,Total 0.2 mg/dL (0.3-1.0); Calcium 7.8 mg/dL (8.6-10.3); Globulin 4.1 g/dL (2.4-3.5); Potassium 3.9 mEq/L (3.5-5.1); Total Protein 6.5 g/dL (6.4-8.9)
[2021-02-12] MEDS: Pantoprazole 40 MG VIAL IVP SCH (08:00)
[2021-02-12] MEDS: Insulin LISPRO 300 UNITS/3 ML VIAL SUBQ SCH ×4 (08:10→21:32)
[2021-02-12] MEDS: NIFEdipine XL (24 HR) 30 MG TAB.ER.24 PO SCH (08:11)
[2021-02-12] MEDS: Pregabalin 50 MG CAPSULE PO SCH ×2 (08:11→21:32)
[2021-02-12] MEDS: BuPROPion XL (24 HR) 150 MG TABLET PO SCH (08:11)
[2021-02-12] MEDS ORDERED: Furosemide 20 MG/2 ML VIAL IVP ONE (12:38)
[2021-02-12] MEDS: Dexmedetomidine HCl 400 MCG/100 ML MLS IVC SCH (19:01)
[2021-02-12] MEDS ORDERED: Vancomycin 2,000 MG/520 ML IV.SOLN IVPB ONE (21:00)
[2021-02-12] MEDS: levoFLOXacin 750 MG/150 ML 750 MG/150 ML BAG IVPB SCH (21:26)
[2021-02-12] MEDS: traZODone 50 MG TABLET PO SCH (21:32)
[2021-02-13] MEDS: Piperacillin/Tazobactam 3.375 GM in 0.9 % Sodium Chloride Mini Bag 100 ML IVPB SCH ×3 (00:18→17:49)
[2021-02-13] MEDS ORDERED: Furosemide 20 MG/2 ML VIAL IVP ONE (03:37)
[2021-02-13] MEDS ORDERED: *HR* FentaNYL (PF) 100 MCG/2 ML VIAL ONE (04:37)
[2021-02-13] MEDS: FentaNYL (PF) 1,000 MCG/100 ML IV.SOLN IVC SCH ×2 (05:02→15:27)
[2021-02-13] MEDS: *HR* Enoxaparin 40 MG/0.4 ML SYRINGE SQ SCH (05:26)
[2021-02-13] MEDS ORDERED: Artificial Tears SOLN 15 ML BOTTLE BOTH EYES PRN (05:41)
[2021-02-13 06:42] LABS: Basophils % 0.2 %; Eosinophils % 0.2 %; Hematocrit 26.5 % (35.3-44.9); Hemoglobin 8.4 g/dL (11.5-15.4); Immature Granulocytes % 1.6 % (0-4); Lymphocytes # 0.7 K/mcL (0.6-4.6); Lymphocytes % 14.2 %; Mean Corpuscular HGB Conc 31.7 g/dL (31.6-35.5); Mean Corpuscular Hemoglobin 26.8 pg (28.0-33.3); Mean Corpuscular Volume 84.4 fL (83.0-100.0); Mean Platelet Volume 11.7 fL (9.4-12.4); Monocytes # 0.2 K/mcL (0.0-1.3); Monocytes % 4.9 %; Neutrophils # 3.9 K/mcL (1.6-8.9); Nucleated Red Blood Cells 0.6 /100 WBC (0); Platelet Count 117 K/mcL (140-400); Red Blood Count 3.14 M/mcL (3.82-4.97); Red Cell Distribution Width 13.5 % (11.5-14.5); Segmented Neutrophils % 78.9 %; White Blood Count 4.9 K/mcL (4.3-11.1)
[2021-02-13 06:58] LABS: Albumin 2.2 g/dL (3.5-5.7); Albumin/Globulin Ratio 0.6 (1.1-2.2); Bilirubin,Indirect 0.3 mg/dL (0.0-1.0); Bilirubin,Total 0.3 mg/dL (0.3-1.0); Calcium 7.4 mg/dL (8.6-10.3); Globulin 3.8 g/dL (2.4-3.5); Magnesium 1.6 mg/dL (1.6-2.6); Potassium 4.2 mEq/L (3.5-5.1)
[2021-02-13 08:37] LABS: ABG Base Excess -4 mEq/L (-2 to 3); ABG HCO3 22 mEq/L (21-27); ABG Oxygen Saturation 82 % (95-98); ABG PCO2 40 mmHg (35-45); ABG PH 7.34 pH Units (7.32-7.45); ABG PO2 49 mmHg (85-104); ABG TCO2 23 mEq/L (20-26); Blood Gas Modality NIV
[2021-02-13] MEDS: Insulin LISPRO 300 UNITS/3 ML VIAL SUBQ SCH ×5 (10:43→23:40)
[2021-02-13] MEDS: Dexmedetomidine HCl 400 MCG/100 ML MLS IVC SCH ×2 (10:44→22:57)
[2021-02-13] MEDS: Artificial Tears SOLN 15 ML BOTTLE BOTH EYES SCH ×5 (10:44→23:40)
[2021-02-13] MEDS: Chlorhexidine Rinse 15 ML MOUTHWASH MM SCH ×2 (10:45→20:08)
[2021-02-13] MEDS: Pantoprazole 40 MG VIAL IVP SCH (10:45)
[2021-02-13] MEDS: NIFEdipine XL (24 HR) 30 MG TAB.ER.24 PO SCH (10:46)
[2021-02-13] MEDS: BuPROPion XL (24 HR) 150 MG TABLET PO SCH (10:46)
[2021-02-13] MEDS: Pregabalin 50 MG CAPSULE PO SCH ×2 (10:46→20:09)
[2021-02-13] MEDS: Norepinephrine 4 MG/254 ML IV.SOLN IVC SCH (12:30)
[2021-02-13] MEDS ORDERED: Vancomycin 2,000 MG/520 ML IV.SOLN IVPB SCH (21:00)
[2021-02-13 21:14] LABS: Bilirubin,Urine Negative (Negative); Blood,Urine Small (Negative); Clarity,Urine Ex.Turbid (Clear); Color,Urine Dark-Orange (Yellow); Glucose,Urine (UA) 100 mg/dL (Normal); Ketones,Urine Trace mg/dL (Negative); Leukocyte Esterase,Urine Large (Negative); Nitrite,Urine Negative (Negative); Protein,Urine 100 mg/dL (Neg-Trace); RBC,Urine 15-30 per hpf (0-3); Specific Gravity,Urine > 1.030 (1.010-1.025); Urobilinogen,Urine Normal (Normal); WBC,Urine TNTC per hpf (0-3)
[2021-02-13] MEDS: Metoclopramide 10 MG/2 ML VIAL IVP SCH (23:39)
[2021-02-14 00:20] LABS: ABG Base Excess -4 mEq/L (-2 to 3); ABG HCO3 21 mEq/L (21-27); ABG Oxygen Saturation 100 % (95-98); ABG PCO2 34 mmHg (35-45); ABG PH 7.39 pH Units (7.32-7.45); ABG PO2 334 mmHg (85-104); ABG TCO2 22 mEq/L (20-26); Blood Gas VT 400 cc
[2021-02-14] MEDS ORDERED: Furosemide 40 MG/4 ML VIAL IVP ONE ×2 (00:30→15:03)
[2021-02-14] MEDS: FentaNYL (PF) 1,000 MCG/100 ML IV.SOLN IVC SCH ×3 (01:08→17:18)
[2021-02-14] MEDS: Piperacillin/Tazobactam 3.375 GM in 0.9 % Sodium Chloride Mini Bag 100 ML IVPB SCH ×3 (02:39→18:21)
[2021-02-14 04:07] LABS: ABG Base Excess -4 mEq/L (-2 to 3); ABG HCO3 22 mEq/L (21-27); ABG Oxygen Saturation 85 % (95-98); ABG PCO2 43 mmHg (35-45); ABG PH 7.32 pH Units (7.32-7.45); ABG PO2 54 mmHg (85-104); ABG TCO2 23 mEq/L (20-26); Blood Gas VT 300 cc
[2021-02-14] MEDS: Artificial Tears SOLN 15 ML BOTTLE BOTH EYES SCH ×6 (04:11→23:29)
[2021-02-14] MEDS: Insulin LISPRO 300 UNITS/3 ML VIAL SUBQ SCH ×6 (04:12→23:30)
[2021-02-14 04:31] LABS: Hematocrit 24.4 % (35.3-44.9); Hemoglobin 7.7 g/dL (11.5-15.4); Immature Granulocytes % 1.1 % (0-4); Lymphocytes # 0.5 K/mcL (0.6-4.6); Lymphocytes % 12.2 %; Mean Corpuscular HGB Conc 31.6 g/dL (31.6-35.5); Mean Corpuscular Volume 85.6 fL (83.0-100.0); Mean Platelet Volume 11.9 fL (9.4-12.4); Monocytes # 0.2 K/mcL (0.0-1.3); Monocytes % 3.9 %; Neutrophils # 3.7 K/mcL (1.6-8.9); Platelet Count 127 K/mcL (140-400); Red Blood Count 2.85 M/mcL (3.82-4.97); Red Cell Distribution Width 13.9 % (11.5-14.5); Segmented Neutrophils % 82.8 %; White Blood Count 4.4 K/mcL (4.3-11.1)
[2021-02-14 04:35] LABS: VBG Ionized Calcium 1.08 mmol/L (1.15-1.35)
[2021-02-14 04:54] LABS: Albumin 2.1 g/dL (3.5-5.7); Albumin/Globulin Ratio 0.5 (1.1-2.2); Bilirubin,Total 0.2 mg/dL (0.3-1.0); Calcium 7.2 mg/dL (8.6-10.3); Globulin 3.9 g/dL (2.4-3.5); Magnesium 1.6 mg/dL (1.6-2.6); Phosphorous 4.8 mg/dL (2.7-4.5); Potassium 3.9 mEq/L (3.5-5.1)
[2021-02-14] MEDS: *HR* Enoxaparin 40 MG/0.4 ML SYRINGE SQ SCH ×2 (05:56→19:26)
[2021-02-14] MEDS: Calcium Gluconate 1gm/50mL 1 GM/50 ML BAG IVPB SCH ×2 (05:56→07:37)
[2021-02-14] MEDS: Metoclopramide 10 MG/2 ML VIAL IVP SCH ×2 (05:56→12:23)
[2021-02-14] MEDS: Pantoprazole 40 MG VIAL IVP SCH (07:40)
[2021-02-14] MEDS: Chlorhexidine Rinse 15 ML MOUTHWASH MM SCH ×2 (07:40→19:25)
[2021-02-14] MEDS: BuPROPion XL (24 HR) 150 MG TABLET PO SCH (07:42)
[2021-02-14] MEDS: NIFEdipine XL (24 HR) 30 MG TAB.ER.24 PO SCH (07:42)
[2021-02-14] MEDS: Pregabalin 50 MG CAPSULE PO SCH (07:42)
[2021-02-14] MEDS: Docusate Oral Soln 100 MG/10 ML UDC GTUBE SCH ×2 (12:22→19:26)
[2021-02-14] MEDS ORDERED: *HR* Rocuronium Bromide 50 MG/5 ML VIAL ONE (15:10)
[2021-02-14] MEDS ORDERED: *HR* Midazolam HCl 5 MG/5 ML VIAL IVP ONE ×2 (15:14→15:30)
[2021-02-14] MEDS ORDERED: *HR* Rocuronium Bromide 50 MG/5 ML VIAL IVP ONE (15:30)
[2021-02-14] MEDS: Cisatracurium 200 MG in 0.9 % Sodium Chloride 180 ML IVC SCH ×2 (15:58→23:35)
[2021-02-14] MEDS: Norepinephrine 4 MG/254 ML IV.SOLN IVC SCH (19:23)
[2021-02-14] MEDS: Dexmedetomidine HCl 400 MCG/100 ML MLS IVC SCH (19:23)
[2021-02-14] MEDS: levoFLOXacin 750 MG/150 ML 750 MG/150 ML BAG IVPB SCH (19:24)
[2021-02-14] MEDS: Midazolam HCl 50 MG/100 ML IV.SOLN IVC SCH (20:18)
[2021-02-14] MEDS: FentaNYL (PF) 2,500 MCG/50 ML IV.SOLN IVC SCH (23:00)
[2021-02-15] MEDS: Piperacillin/Tazobactam 3.375 GM in 0.9 % Sodium Chloride Mini Bag 100 ML IVPB SCH ×2 (02:45→08:13)
[2021-02-15] MEDS: Dexmedetomidine HCl 400 MCG/100 ML MLS IVC SCH (03:09)
[2021-02-15 03:51] LABS: Hemoglobin 7.6 g/dL (11.5-15.4); Immature Granulocytes % 1.2 % (0-4); Lymphocytes # 0.7 K/mcL (0.6-4.6); Lymphocytes % 11.6 %; Mean Corpuscular HGB Conc 31.7 g/dL (31.6-35.5); Mean Corpuscular Hemoglobin 27.4 pg (28.0-33.3); Mean Corpuscular Volume 86.6 fL (83.0-100.0); Mean Platelet Volume 12.7 fL (9.4-12.4); Monocytes # 0.2 K/mcL (0.0-1.3); Monocytes % 3.3 %; Neutrophils # 4.8 K/mcL (1.6-8.9); Platelet Count 105 K/mcL (140-400); Red Blood Count 2.77 M/mcL (3.82-4.97); Red Cell Distribution Width 13.8 % (11.5-14.5); Segmented Neutrophils % 83.9 %; White Blood Count 5.7 K/mcL (4.3-11.1)
[2021-02-15] MEDS: Artificial Tears SOLN 15 ML BOTTLE BOTH EYES SCH ×3 (03:54→12:00)
[2021-02-15] MEDS: Insulin LISPRO 300 UNITS/3 ML VIAL SUBQ SCH ×2 (03:55→08:52)
[2021-02-15 03:59] LABS: Albumin/Globulin Ratio 0.6 (1.1-2.2); Bilirubin,Total 0.3 mg/dL (0.3-1.0); Calcium 7.3 mg/dL (8.6-10.3); Globulin 3.4 g/dL (2.4-3.5); Magnesium 1.9 mg/dL (1.6-2.6); Potassium 3.9 mEq/L (3.5-5.1); Total Protein 5.4 g/dL (6.4-8.9)
[2021-02-15 04:17] LABS: D-Dimer 1591 ng/mLFEU (0-500); Fibrinogen 300 mg/dL (169-393)
[2021-02-15 05:24] LABS: ABG Base Excess -4 mEq/L (-2 to 3); ABG HCO3 22 mEq/L (21-27); ABG Oxygen Saturation 96 % (95-98); ABG PCO2 48 mmHg (35-45); ABG PH 7.28 pH Units (7.32-7.45); ABG PO2 95 mmHg (85-104); ABG TCO2 24 mEq/L (20-26); Blood Gas Modality ASSIST CONTROL; Blood Gas VT 300 cc
[2021-02-15] MEDS: FentaNYL (PF) 2,500 MCG/50 ML IV.SOLN IVC SCH (07:10)
[2021-02-15] MEDS: Midazolam HCl 50 MG/100 ML IV.SOLN IVC SCH (07:57)
[2021-02-15] MEDS: Pantoprazole 40 MG VIAL IVP SCH (08:14)
[2021-02-15] MEDS: *HR* Enoxaparin 40 MG/0.4 ML SYRINGE SQ SCH (08:16)
[2021-02-15] MEDS: Docusate Oral Soln 100 MG/10 ML UDC GTUBE SCH (08:16)
[2021-02-15] MEDS: Chlorhexidine Rinse 15 ML MOUTHWASH MM SCH (08:16)
[2021-02-15 08:44] VITALS: TEMP 98.3
[2021-02-15] MEDS ORDERED: Dexamethasone Sodium Phos/PF 10 MG/ML VIAL IVP SCH (09:00)
[2021-02-15] MEDS ORDERED: *HR* LORazepam 2 MG/ML VIAL IVP PRN (11:51)
[2021-02-15] MEDS ORDERED: *HR* FentaNYL (PF) 100 MCG/2 ML VIAL IVP PRN (11:53)
[2021-02-15 12:06] VITALS: BP 121/60; O2SAT 96
[2021-02-15 12:14] VITALS: PULSE 70
== END 2021-02-15 13:41 | disposition expired | DRG 871 ==
LOC: 2ANU → SUATTDRO 17:56 → 3NENU 01-21 21:45 → ICNU 02-13 09:19
PROVIDERS: ADMIT Internal Medicine; ATTEND Internal Medicine
PROC: ENDOEBX (2021-01-05 13:00)